=== PATIENT | female | born 1945 | race Caucasian/White ===

== ENCOUNTER 2018-07-24 14:49 | Emergency (ER) | payer MEDICARE ==
--- OUTSIDE RECORDS SUMMARY | 2018-07-24 14:53 | XMS REPORT | Continuity of Care Document ---
Author Author Jackson courtney [facility] Interface Address Unknown Phone Unavailable Problems Problem Status Onset Date Classification Date Reported Comments Source Radiculopathy, lumbar region 05/03/2017 08/05/2017 [facility] PAIN Active 01/08/2017 [facility] FALL Active 11/23/2015 [facility] GROUND LEVEL FALL, T12 BURST FRACTURE, M Active 11/23/2015 [facility] CERVICAL PAIN IN THE NECK Active 05/30/2015 [facility] M54.2 Active 03/15/2015 [facility] R52 - "PAIN, UNSPECIFIED" [facility]<sup>1</sup> Active 09/27/2014 Problem 09/21/2017 Data migrated from [employer] on 12/07/14. [facility] NECK PAIN Active 09/27/2014 [facility] Lumbar radiculopathy<sup>2</sup> Active 12/21/2013 Problem 09/21/2017 Data migrated from [employer] on 12/07/14. [facility] Anxiety Active Problem 09/21/2017 [facility] COPD Active Problem 09/21/2017 [facility] Depression Active Problem 05/02/2017 [facility] H/O low back pain Active Problem 09/21/2017 [facility], [facility] Heart burn Resolved Problem 09/21/2017 [facility] Irregular heart rate Active Problem 09/21/2017 [facility] Neck pain Active Problem 09/21/2017 [facility] Simple obesity Active Problem 09/21/2017 [facility], [facility] 09/21[facility]2017 [facility]ros[facility] C[facility] LUMBAR DISC DISPLACEMENT Active [facility] BRACHIAL NEURITIS NOS Active [facility] OTHER ABNORMAL FINDINGS ON SCR Active [facility] CERVICALGIA Active [facility] SPINAL STENOSIS, LUMBOSACRAL REGION Active [facility] FALL (ON) (FROM) UNSPECIFIED STAIRS AND Active [facility] FRACTURE OF UNSPECIFIED PART OF BODY OF Active [facility] ENCOUNTER FOR ADMINISTRATIVE EXAMINATION Active [facility] Medications Medication Details Route Status Patient Instructions Ordering Provider Order Date Source methocarbamol 750 mg oral tablet 750 mg=1 tab, PO, Q8H, PRN Spasms, X 20 day, # 60 tab, 0 Refill(s), given to patient Active 01/27/2017 [facility] Acetaminophen 325 MG / Oxycodone Hydrochloride 5 MG Oral Tablet [Percocet 5/325] 1 tab, PO, Q6H, PRN Pain, X 7 day, # 28 tab, 0 Refill(s), given to patient Active 01/27/2017 [facility] Ciprofloxacin 500 MG Oral Tablet [Cipro] 500 mg=1 tab, PO, Q12H, X 14 day, # 28 tab, 0 Refill(s), given to patient Active 01/27/2017 [facility] heparin 5,000 unit, 1 mL, Route: SUB-Q, Drug form: INJ, BID, Dosing Weight 84.091, kg, Start date: 01/26/17 9:00:00 CDT, Duration: 30 day, Stop date: 02/24/17 17:00:00 CSTNotes: porcine heparin No Longer Active 01/26/2017 [facility] SEROquel 100 mg, 1 tab, Route: PO, Drug form: TAB, Bedtime, Start date: 01/25/17 21:00:00 CDT, Duration: 30 day, Stop date: 02/23/17 21:00:00 CSTNotes: (Same as: SEROquel) No Longer Active 01/26/2017 [facility] Furosemide 40 MG Oral Tablet [Lasix] 40 mg, 1 tab, Route: PO, Drug form: TAB, Daily, Dosing Weight 84.091, kg, Start date: 01/25/17 9:00:00 CDT, Duration: 30 day, Stop date: 02/23/17 9:00:00 CSTNotes: (Same as: Lasix) May cause GI upset. Give with food or milk. Inactive 01/25/2017 [facility] Miralax 17 gm, 1 pkt, Route: PO, Drug form: PWDR, Daily, Dosing Weight 84.091, kg, Start date: 01/25/17 9:00:00 CDT, Duration: 30 day, Stop date: 02/23/17 9:00:00 CSTNotes: Dissolve in 8 oz of water or juice. (Same as: Miralax) No Longer Active 01/25/2017 [facility] potassium chloride 10 mEq oral tablet, extended release 10 mEq, 1 tab, Route: PO, Drug form: ERTAB, Daily, Dosing Weight 84.091, kg, Start date: 01/25/17 9:00:00 CDT, Duration: 30 day, Stop date: 02/23/17 9:00:00 CSTNotes: (Same as: K-Dur 10) "Do Not Crush" With food and full glass of water Inactive 01/25/2017 [facility] metoprolol extended release 25 mg, 1 tab, Route: PO, Drug form: ERTAB, Daily, Start date: 01/25/17 9:00:00 CDT, Duration: 30 day, Stop date: 02/23/17 9:00:00 CSTNotes: (Same as: Toprol XL) Do Not Crush No Longer Active 01/25/2017 [facility] Acetaminophen 325 MG / Oxycodone Hydrochloride 5 MG Oral Tablet [Percocet 5/325] 1 tab, Route: PO, Drug Form: TAB, Dosing Weight 84.091, kg, Q4H, PRN Pain Score 1-3, Start date: 01/25/17 8:08:00 CDT, Duration: 30 day, Stop date: 02/24/17 8:07:00 CSTNotes: Do not exceed 4gm/day of acetaminophen. (Same as: Percocet-5/325) No Longer Active 01/25/2017 [facility] Ativan 0.5 mg, 1 tab, Route: PO, Drug form: TAB, BID, Dosing Weight 84.091, kg, PRN Anxiety, Start date: 01/25/17 8:06:00 CDT, Duration: 30 day, Stop date: 02/24/17 8:05:00 CSTNotes: (Same as: Ativan) No Longer Active 01/25/2017 [facility] quetiapine 100 mg, PO, 1 tablet by mouth 3x/day and 2 tablets at night before bedtime, 0 Refill(s) Active 01/25/2017 [facility] Robaxin 750 mg, 1 tab, Route: PO, Drug form: TAB, Q6Hnow, Dosing Weight 84.091, kg, Start date: 01/24/17 22:00:00 CDT, Duration: 30 day, Stop date: 02/23/17 16:00:00 CSTNotes: (Same as:Robaxin) No Longer Active 01/25/2017 [facility] montelukast 10 mg, 1 tab, Route: PO, Drug form: TAB, Bedtime, Dosing Weight 84.091, kg, Start date: 01/24/17 21:00:00 CDT, Duration: 30 day, Stop date: 02/22/17 21:00:00 CSTNotes: (Same as:Singulair) No Longer Active 01/25/2017 [facility] Vancomycin 1,000 mg, Route: IV, [id number], Dosing Weight 84.091, kg, Time Critical Medication, Start date: 01/24/17 20:00:00 CDT, Duration: 3 day, Stop date: 01/27/17 8:00:00 CDT, ABX Indication: Surgical ProphylaxisNotes: TIME CRITICAL MEDICATION (Same As: Vancocin) Infusion rate 2001 mg: infuse over 2.5 hours MEDICATION WASTE Product Size: 1000 mg Product Wasted: _0__ mg No Longer Active 01/25/2017 [facility] Acetaminophen 10 MG/ML Injectable Solution 1,000 mg, 100 mL, Route: IV, Drug form: INJ, Q6H, Dosing Weight 84.091, kg, For > or=50 kg, Start date: 01/24/17 18:00:00 CDT, Duration: 2 doses or times, Stop date: 01/25/17 0:00:00 CDTNotes: Infuse over 15 minutes Do not exceed 4gm/day of acetaminophen MEDICATION WASTE Product Size: 1000 mg Product Wasted: 0___ mg No Longer Active 01/24/2017 [facility] Advair Diskus 250 mcg-50 mcg inhalation powder 1 puff, Route: INHALATION, Drug Form: AERO, Dosing Weight 84.091, kg, BID, Start date: 01/24/17 17:00:00 CDT, Duration: 30 day, Stop date: 02/23/17 9:00:00 ICT ACCOUNT MANAGER Inactive 01/24/2017 [facility] divalproex sodium 500 mg oral enteric coated tablet (Depakote) 500 mg, 1 tab, Route: PO, Drug form: ECTAB, BID, Dosing Weight 84.091, kg, Start date: 01/24/17 17:00:00 CDT, Duration: 30 day, Stop date: 02/23/17 9:00:00 CSTNotes: (Same as: Depakote Delayed Release) Do not confuse with the extended-release tablet. Delayed absorption enteric coated tablet. Do not crush No Longer Active 01/24/2017 [facility] senna 8.6 mg oral tablet 8.6 mg, 1 tab, Route: PO, Drug Form: TAB, Dosing Weight 84.091, kg, BID, Start date: 01/24/17 17:00:00 CDT, Duration: 30 day, Stop date: 02/23/17 9:00:00 CSTNotes: (Same as: Senokot) No Longer Active 01/24/2017 [facility] Docusate Sodium 100 MG Oral Capsule [Colace] 100 mg, 1 cap, Route: PO, Drug form: CAP, BID, Dosing Weight 84.091, kg, Start date: 01/24/17 17:00:00 CDT, Duration: 30 day, Stop date: 02/23/17 9:00:00 CSTNotes: (Same as: Colace) (Do Not Crush) No Longer Active 01/24/2017 [facility] Robaxin + D5W 100 mL 1,000 mg, 10 mL, Route: IV, ONCE, Start date: 01/24/17 16:15:00 CDT, Stop date: 01/24/17 16:15:00 CDTNotes: (Same as:Robaxin) Inactive 01/24/2017 [facility] Bacitracin 1 appl, Route: TOP, Q8H, Drug form: OINT, Start date: 01/24/17 16:00:00 CDT, Duration: 5 day, Stop date: 01/29/17 8:00:00 CDT No Longer Active 01/24/2017 [facility] Methocarbamol 1,000 mg, 10 mL, Route: IV, ONCE, Dosing Weight 84.091, kg, Priority: STAT, Start date: 01/24/17 15:26:00 CDT, Duration: 1 doses or times, Stop date: 01/24/17 15:26:00 CDTNotes: (Same as:Robaxin) Inactive 01/24/2017 [facility] budesonide-formoterol 2 puff, Route: INHALER, Drug Form: AERO/A, RBID, Start date: 01/24/17 14:35:00 CDT, Duration: 30 day, Stop date: 02/23/17 8:00:00 CSTNotes: (Same as: Symbicort) WASTE: Aerosol - Return to Pharmacy No Longer Active 01/24/2017 [facility] glycopyrrolate (ANES) Route: IV, Drug form: INJ, ONCE, Stop date: 01/24/17 14:34:00 CDT Inactive 01/24/2017 [facility] neostigmine (ANES) Route: IV, Drug form: INJ, ONCE, Stop date: 01/24/17 14:34:00 CDT Inactive 01/24/2017 [facility] Promethazine 6.25 mg, 25 mL, Route: IVPB, Drug form: SOLN, ONCE, Dosing Weight 84.091, kg, PRN Nausea & Vomiting, Start date: 01/24/17 14:08:00 CDT Inactive 01/24/2017 [facility] Ondansetron 4 mg, 2 mL, Route: IVP, Drug form: INJ, ONCE, Dosing Weight 84.091, kg, PRN Nausea & Vomiting, Start date: 01/24/17 14:08:00 CDTNotes: (Same as: Leon) MEDICATION WASTE Product Size: 4 mg Product Wasted: ___ mg Inactive 01/24/2017 [facility] Naloxone 0.4 mg, 1 mL, Route: IVP, Drug form: INJ, Q2MIN, Dosing Weight 84.091, kg, PRN Narcotic Reversal, Start date: 01/24/17 14:08:00 CDT, Duration: 8 doses or times, Stop date: Limited # of timesNotes: Same as Narcan Inactive 01/24/2017 [facility] Meperidine 12.5 mg, 0.5 mL, Route: IVP, Drug form: INJ, Q30Min, Dosing Weight 84.091, kg, PRN Other -See Comment, For shivering, Start date: 01/24/17 14:08:00 CDT, Duration: 2 doses or times, Stop date: Limited # of timesNotes: (Same as: Demerol) "Use Precaution in Elderly, Seizure disorders, and Renal impairment" Inactive 01/24/2017 [facility] Ephedrine 5 mg, 1 mL, Route: IVP, Drug form: INJ, Q5Min, Dosing Weight 84.091, kg, PRN Low Blood Pressure, Start date: 01/24/17 14:08:00 CDT, Duration: 30 day, Stop date: 02/23/17 13:07:00 CSTNotes: final conc entration 5 mg/mL Inactive 01/24/2017 [facility] Diphenhydramine 12.5 mg, 0.25 mL, Route: IVP, Drug form: INJ, Q6H, Dosing Weight 84.091, kg, PRN Itching, Start date: 01/24/17 14:08:00 CDT, Duration: 30 day, Stop date: 02/23/17 14:07:00 CSTNotes: (Same as: Merary stinson) Inactive 01/24/2017 [facility] Morphine 4 mg, 1 mL, Route: IVP, Drug form: INJ, Q5Min, Dosing Weight 84.091, kg, PRN Pain Score 7-10, Start date: 01/24/17 14:08:00 CDT, Duration: 3 doses or times, Stop date: Limited # of timesNotes: (Same as:MORPhine Sulfate) Inactive 01/24/2017 [facility] Hydromorphone 0.5 mg, Route: IVP, Q5Min, Dosing Weight 84.091, kg, PRN Pain Score 7-10, Start date: 01/24/17 14:08:00 CDT, Duration: 4 doses or times, Stop date: Limited # of times Inactive 01/24/2017 [facility] Flumazenil 0.2 mg, 2 mL, Route: IVP, Drug form: INJ, PRN, Dosing Weight 84.091, kg, PRN Benzodiazepine Reversal, Initial dose, Start date: 01/24/17 14:08:00 CDT, Duration: 30 day, Stop date: 02/23/17 13:07:00 C STNotes: (Same as: Romazicon) Inactive 01/24/2017 [facility] Oxycodone 10 mg, 10 mL, Route: NG, Drug form: SOLN, Q4H, Dosing Weight 84.091, kg, PRN Pain Score 7-10, Start date: 01/24/17 14:08:00 CDT, Duration: 30 day, Stop date: 02/23/17 14:07:00 CSTNotes: (Same as:'Sydney icodone) To be drawn up in 3 mL syr Inactive 01/24/2017 [facility] Labetalol 10 mg, 2 mL, Route: IVP, Drug form: INJ, Q5Min, Dosing Weight 84.091, kg, PRN Elevated BP, Start date: 01/24/17 14:08:00 CDT, Duration: 5 doses or times, Stop date: Limited # of times Inactive 01/24/2017 [facility] Hydralazine 10 mg, 0.5 mL, Route: IVP, Drug form: INJ, Q20Min, Dosing Weight 84.091, kg, PRN Elevated BP, Start date: 01/24/17 14:08:00 CDT, Duration: 2 doses or times, Stop date: Limited # of timesNotes: (Same as: Apresoline) Push over 5 minutes Inactive 01/24/2017 [facility] quetiapine 100 mg, 1 tab, Route: PO, Drug form: TAB, TID, Dosing Weight 84.091, kg, Start date: 01/24/17 14:00:00 CDT, Duration: 30 day, Stop date: 02/23/17 13:00:00 CSTNotes: (Same as: SEROquel) No Longer Active 01/24/2017 [facility] ondansetron (ANES) Route: IV, Drug form: INJ, ONCE, Stop date: 01/24/17 13:59:00 CDT Inactive 01/24/2017 [facility] Temazepam 15 mg, 1 cap, Route: PO, Drug form: CAP, Bedtime, Dosing Weight 84.091, kg, PRN Sleep, Start date: 01/24/17 13:31:00 CDT, Duration: 30 day, Stop date: 02/23/17 13:30:00 CSTNotes: (Same As: Restoril) No Longer Active 01/24/2017 [facility] Ventolin HFA 90 mcg/inh inhalation aerosol with adapter 2 puff, Route: INHALATION, Drug Form: AERO/A, Dosing Weight 84.091, kg, PRN, PRN Shortness of breath, Start date: 01/24/17 13:30:00 CDT, Duration: 30 day, Stop date: 02/23/17 12:29:00 CSTNotes: Same as: Ventolin HFA WASTE: Aerosol - Return to Pharmacy No Longer Active 01/24/2017 [facility] Naloxone 0.04 mg, 0.1 mL, Route: IVP, Drug form: INJ, Q2MIN, Dosing Weight 84.091, kg, PRN Narcotic Reversal, Start date: 01/24/17 13:30:00 CDT, Duration: 30 day, Stop date: 02/23/17 12:29:00 CSTNotes: Same as Narcan No Longer Active 01/24/2017 [facility] Hydromorphone 15 mg, 30 mL, Route: IV, PET CARE WORKER Dose: 0.2 mg, PET CARE WORKER Lockout: 15 minutes, Continuous Basal Rate: 0 mg, 4 Hour Limit (In MG): 6, Drug Form: INJ, Continuous, Start date: 01/24/17 13:30:00 CDT, Duration: 30 day, Stop date: 02/23/17 12:29:00 CSTNotes: (Same as: Dilaudid) conc=0.5 mg/ml Hydromorphone PET CARE WORKER Dose: ;Delay: ;Basal: No Longer Active 01/24/2017 [facility] Zofran 4 mg, 2 mL, Route: IV, Drug form: INJ, Q8H, Dosing Weight 84.091, kg, PRN Nausea, Start date: 01/24/17 13:27:00 CDT, Duration: 30 day, Stop date: 02/23/17 13:26:00 CSTNotes: (Same as: Zofran) MEDICATION WASTE Product Size: 4 mg Product Wasted: ___ mg No Longer Active 01/24/2017 [facility] Phenergan 6.25 mg, 5 mL, Route: PO, Drug form: SYRP, Q6H, Dosing Weight 84.091, kg, PRN Nausea & Vomiting, Start date: 01/24/17 13:27:00 CDT, Duration: 30 day, Stop date: 02/23/17 13:26:00 CSTNotes: (Same as: Phenergan) No Longer Active 01/24/2017 [facility] Benadryl 25 mg, 1 cap, Route: PO, Drug form: CAP, TID, Dosing Weight 84.091, kg, PRN Itching, Start date: 01/24/17 13:27:00 CDT, Duration: 30 day, Stop date: 02/23/17 13:26:00 CSTNotes: (Same as: Benadryl) No Longer Active 01/24/2017 [facility] Simethicone 80 mg, 1 tab, Route: CHEW, Drug form: CHEWTAB, TID, Dosing Weight 84.091, kg, PRN Gas, Start date: 01/24/17 13:27:00 CDT, Duration: 30 day, Stop date: 02/23/17 13:26:00 CSTNotes: (Same as: Mylicon) No Longer Active 01/24/2017 [facility] Temazepam 15 mg, 1 cap, Route: PO, Drug form: CAP, Bedtime, Dosing Weight 84.091, kg, PRN Sleep, Start date: 01/24/17 13:27:00 CDT, Duration: 30 day, Stop date: 02/23/17 13:26:00 CSTNotes: (Same As: Restoril) No Longer Active 01/24/2017 [facility] Acetaminophen 325 MG / Hydrocodone Bitartrate 10 MG Oral Tablet [Barton 10/325] 1 tab, Route: PO, Drug Form: TAB, Dosing Weight 84.091, kg, Q4H, PRN Pain Score 6-10, Start date: 01/24/17 13:27:00 CDT, Duration: 30 day, Stop date: 02/23/17 13:26:00 CSTNotes: Do not exceed 4gm/day of acetaminophen. (Same as: Barton 325/10) No Longer Active 01/24/2017 [facility] NS + KCL 20mEq/L 1000ml (Premix) 1,000 mL 1,000 mL, Rate: 75 ml/hr, Infuse over: 13.3 hr, Route: IV, Dosing Weight 84.091 kg, Total Volume: 1,000, Start date: 01/24/17 13:27:00 CDT, Duration: 30 day, Stop date: 02/23/17 13:26:00 CSTNotes: PREMIX IV - Do Not Alter WASTE: F/P - Sink; E - Municipal Trash Bin No Longer Active 01/24/2017 [facility] Tylenol 325 mg, 1 tab, Route: PO, Drug form: TAB, Q4H, Dosing Weight 84.091, kg, PRN Other -See Comment, Start date: 01/24/17 13:27:00 CDT, Duration: 30 day, Stop date: 02/23/17 13:26:00 CSTNotes: Do not exceed 4 gm/day. (Same as: Tylenol) No Longer Active 01/24/2017 [facility] Morphine 2 mg, 0.5 mL, Route: IVP, Drug form: INJ, Q2H, Dosing Weight 84.091, kg, PRN Pain Score 7-10, Start date: 01/24/17 13:27:00 CDT, Duration: 30 day, Stop date: 02/23/17 13:26:00 CSTNotes: (Same as:MORPhine Sulfate) No Longer Active 01/24/2017 [facility] Acetaminophen 325 MG / Hydrocodone Bitartrate 5 MG Oral Tablet [Barton 5/325] 1 tab, Route: PO, Drug Form: TAB, Dosing Weight 84.091, kg, Q4H, PRN Pain Score 1-5, Start date: 01/24/17 13:27:00 CDT, Duration: 30 day, Stop date: 02/23/17 13:26:00 CSTNotes: (Same as: Barton 325/5) Do not exceed 4gm/day of acetaminophen. No Longer Active 01/24/2017 [facility] phenylephrine (ANES) Route: IV, Drug form: INJ, ONCE, Stop date: 01/24/17 10:49:00 CDT Inactive 01/24/2017 [facility] rocuronium (ANES) Route: IV, Drug form: INJ, ONCE, Stop date: 01/24/17 10:24:00 CDT Inactive 01/24/2017 [facility] propofol (ANES) Route: IV, Drug form: INJ, ONCE, Stop date: 01/24/17 10:24:00 CDT Inactive 01/24/2017 [facility] lidocaine (ANES) Route: IV, Drug form: INJ, ONCE, Stop date: 01/24/17 10:24:00 CDT Inactive 01/24/2017 [facility] midazolam (ANES) Route: IV, Drug form: SOLN, ONCE, Stop date: 01/24/17 10:19:00 CDT Inactive 01/24/2017 [facility] fentaNYL (ANES) Route: IV, Drug form: INJ, ONCE, Stop date: 01/24/17 10:19:00 CDT Inactive 01/24/2017 [facility] dexamethasone (ANES) Route: IV, Drug form: INJ, ONCE, Stop date: 01/24/17 10:14:00 CDT Inactive 01/24/2017 [facility] morphine Sulfate (ANES) Route: IV, Drug form: INJ, ONCE, Stop date: 01/24/17 10:04:00 CDT Inactive 01/24/2017 [facility] sodium chloride 0.9% 500 ml INJ (ANES) Route: IV, Total Volume: 500, Start date: 01/24/17 9:12:00 CDT, Stop date: 01/24/17 10:12:00 CDT Inactive 01/24/2017 [facility] propofol (ANES) (ANES) Route: IV, Drug form: INJ, Start date: 01/24/17 9:12:00 CDT, Stop date: 01/24/17 10:12:00 CDT Inactive 01/24/2017 [facility] acetaminophen (ANES) (ANES) Route: IV, Drug form: INJ, Start date: 01/24/17 8:50:00 CDT, Stop date: 01/24/17 9:50:00 CDT Inactive 01/24/2017 [facility] vancomycin (ANES) (ANES) Route: IV, Drug form: INJ, Start date: 01/24/17 8:23:00 CDT, Stop date: 01/24/17 9:23:00 CDT Inactive 01/24/2017 [facility] LR 1000 mL INJ (ANES) Route: IV, Total Volume: 1,000, Start date: 01/24/17 8:23:00 CDT, Stop date: 01/24/17 9:23:00 CDT Inactive 01/24/2017 [facility] Lidocaine Hydrochloride 10 MG/ML Injectable Solution 2 mg, 0.2 mL, Route: SUB-Q, Drug Form: INJ, Dosing Weight 84.091, kg, ONCALL, Start date: 01/24/17 7:00:00 CDT, Duration: 30 day, Stop date: 02/23/17 5:59:00 CSTNotes: (Same as: Xylocaine) Inactive 01/24/2017 [facility] Lactated Ringers 1,000 mL 1,000 mL, Rate: 40 ml/hr, Infuse over: 25 hr, Route: IV, Dosing Weight 84.091 kg, Total Volume: 1,000, Start date: 01/24/17 6:54:00 CDT, Duration: 30 day, Stop date: 02/23/17 6:53:00 ICT ACCOUNT MANAGER No Longer Active 01/24/2017 [facility] Ofirmev 1,000 mg, 100 mL, Route: IVPB, Drug form: INJ, ONCALL, Start date: 01/18/17 20:00:00 CDT, Duration: 1 doses or timesNotes: Infuse over 15 minutes Do not exceed 4gm/day of acetaminophen MEDICATION WASTE Product Size: 1000 mg Product Wasted: ___ mg No Longer Active 01/19/2017 [facility] vancomycin 1.25 gm, 250 mL, Route: IVPB, Drug form: INJ, PRE OP, Start date: 01/18/17 20:00:00 CDT, Duration: 1 doses or times, ABX Indication: Surgical ProphylaxisNotes: TIME CRITICAL MEDICATION Same as: Vanco carmen-NS (premixed) Infusion rate 2001 mg: infuse over 2.5 hours No Longer Active 01/19/2017 [facility] Ventolin HFA 2 puff, INHALATION, PRN, 0 Refill(s) Active 01/17/2017 [facility] potassium chloride 10 mEq oral capsule, extended release 10 mEq=1 cap, PO, Daily, # 30 cap, 1 Refill(s) Active 01/17/2017 [facility] Advair Diskus 250 mcg-50 mcg inhalation powder 1 puff, INHALATION, BID, # 1 ea, 3 Refill(s) Active 01/17/2017 [facility] montelukast 10 mg oral tablet 10 mg=1 tab, PO, Bedtime, # 30 tab, 0 Refill(s) Active 01/17/2017 [facility] temazepam 15 mg oral capsule 15 mg=1 cap, PO, Bedtime, PRN Sleep, # 14 tab, 0 Refill(s) Inactive 01/17/2017 [facility] metoprolol 25 mg oral tablet, extended release 25 mg=1 tab, PO, Daily, # 30 tab, 0 Refill(s) Active 01/17/2017 [facility] Furosemide 40 MG Oral Tablet [Lasix] 40 mg=1 tab, PO, Daily, # 30 tab, 0 Refill(s) Active 01/17/2017 [facility] clopidogrel 75 MG Oral Tablet [Plavix] 75 mg=1 tab, PO, Daily, # 30 tab, 0 Refill(s) No Longer Active 01/17/2017 [facility] QUEtiapine 100 mg oral tablet 100 mg=1 tab, PO, 5X Day, # 90 tab, 0 Refill(s) No Longer Active 01/17/2017 [facility] Acetaminophen 300 MG / Codeine Phosphate 30 MG Oral Tablet [Tylenol with Codeine #3] 1 - 2 tab, PO, Q4H, PRN Pain, # 20 tab, 0 Refill(s) No Longer Active 01/17/2017 [facility] pneumococcal 13-valent vaccine 0.5 mL, Route: IM, Drug Form: INJ, Daily, Start date: 12/05/15 21:00:00 CDT, Duration: 1 doses or times, Stop date: 12/05/15 21:00:00 CDTNotes: Lightly roll vial (DO NOT SHAKE) before administration. (Same as: Prevnar 13) Inactive 12/06/2015 [facility] Cephalexin 500 MG Oral Capsule [Keflex] 500 mg=1 cap, PO, QID, X 10 day, # 40 cap, 0 Refill(s) Active 12/05/2015 [facility] Methocarbamol 750 MG Oral Tablet [Robaxin] 750 mg=1 tab, PO, Q6H, PRN Spasms, X 30 day, # 120 tab, 0 Refill(s) Active 12/05/2015 [facility] Acetaminophen 325 MG / Hydrocodone Bitartrate 10 MG Oral Tablet [Barton 10/325] 1 tab, PO, Q6H, PRN for pain, X 15 day, # 60 tab, 0 Refill(s) Active 12/05/2015 [facility] potassium chloride 40 mEq, 2 tab, Route: PO, Drug form: ERTAB, ONCE, Dosing Weight 72.074, kg, Start date: 12/04/15 18:00:00 CDT, Stop date: 12/04/15 18:00:00 CDTNotes: (Same as: K-Dur 20) "Do Not Crush" With food and full glass of water Inactive 12/04/2015 [facility] potassium chloride 10 mEq, 100 mL, Route: IVPB, Drug form: INJ, Q1H, Dosing Weight 72.074, kg, Total Dose=40 meq, Start date: 12/04/15 11:00:00 CDT, Duration: 4 doses or times, Stop date: 12/04/15 14:00:00 CDT, Peripheral LineNotes: Infuse at a rate of 10 mEq/hr. (Same as: KCL) Inactive 12/04/2015 [facility] docusate sodium 100 mg oral capsule 200 mg, 2 cap, Route: PO, Drug form: CAP, BID, Start date: 12/04/15 9:00:00 CDT, Duration: 30 day, Stop date: 01/02/16 17:00:00 CDTNotes: (Same as: Colace) (Do Not Crush) No Longer Active 12/04/2015 [facility] Bentyl 10 mg, 1 cap, Route: PO, Drug form: CAP, TID, Dosing Weight 72.074, kg, PRN Cramps, Start date: 12/04/15 7:50:00 CDT, Duration: 30 day, Stop date: 01/03/16 7:49:00 CDTNotes: (Same as: Bentyl) No Longer Active 12/04/2015 [facility] Insulin, Aspart, Human 4 unit, 0.04 mL, Route: SUB-Q, Drug form: SOLN, Bedtime, Dosing Weight 72.074, kg, PRN Blood Glucose Results, Start date: 12/04/15 6:05:00 CDT, Duration: 30 day, Stop date: 01/03/16 6:04:00 CDTNotes: Roll in palms of hands gently; Do not shake vigorously. (Same as: NovoLOG) "single patient use only" WASTE: F/P - Black; E - Municipal Trash Bin Stable for 28 days at room temperature. Expires in days from Date No Longer Active 12/04/2015 [facility] Glucagon 1 mg, Route: IM, Drug form: PDR/INJ, PRN, Dosing Weight 72.074, kg, PRN Blood Glucose Results, Start date: 12/04/15 6:05:00 CDT, Duration: 30 day, Stop date: 01/03/16 6:04:00 CDT No Longer Active 12/04/2015 [facility] Dextrose 50% Syringe 25 gm, 50 mL, Route: IVP, Drug Form: INJ, Dosing Weight 72.074, kg, PRN, PRN Blood Glucose Results, Start date: 12/04/15 6:05:00 CDT, Duration: 30 day, Stop date: 01/03/16 6:04:00 CDT No Longer Active 12/04/2015 [facility] Metoclopramide 10 mg, 2 mL, Route: IVP, Drug form: INJ, Q6H, Dosing Weight 72.074, kg, PRN Nausea & Vomiting, Start date: 12/04/15 5:53:00 CDT, Duration: 30 day, Stop date: 01/03/16 5:52:00 CDTNotes: (Same as: Reglan) No Longer Active 12/04/2015 [facility] heparin 5,000 unit, 1 mL, Route: SUB-Q, Drug form: INJ, Q12H, Dosing Weight 72.074, kg, Start date: 12/03/15 21:00:00 CDT, Duration: 30 day, Stop date: 01/02/16 9:00:00 CDTNotes: porcine heparin No Longer Active 12/04/2015 [facility] lactulose 20 gm, 30 mL, Route: PO, Drug form: SYRP, Q6H, PRN Constipation, Start date: 12/03/15 18:35:00 CDT, Duration: 30 day, Stop date: 01/02/16 18:34:00 CDTNotes: (Same as:Chronulac) No Longer Active 12/03/2015 [facility] docusate sodium 100 mg oral capsule 100 mg, 1 cap, Route: PO, Drug form: CAP, ONCE, Priority: NOW, Start date: 12/03/15 18:34:00 CDT, Stop date: 12/03/15 18:34:00 CDTNotes: (Same as: Colace) (Do Not Crush) Inactive 12/03/2015 [facility] methylnaltrexone 12 mg, Route: SUB-Q, ONCE, Dosing Weight 72.074, kg, Start date: 12/03/15 18:04:00 CDT, Stop date: 12/03/15 18:04:00 CDT Inactive 12/03/2015 [facility] Milk of Magnesia 60 ml, Route: PO, Drug Form: SUSP, Dosing Weight 72.074, kg, Q4H, Start date: 12/03/15 12:00:00 CDT, Duration: 30 day, Stop date: 01/02/16 8:00:00 CDTNotes: (Same as: Milk of Magnesia, MOM) No Longer Active 12/03/2015 [facility] Protonix 40 mg, 1 tab, Route: PO, Drug form: ECTAB, Before Breakfast, Dosing Weight 72.074, kg, Start date: 12/03/15 7:30:00 CDT, Duration: 30 day, Stop date: 01/01/16 7:30:00 CDTNotes: Tablet should not be c hewed or crushed. (Same as: Protonix) No Longer Active 12/03/2015 [facility] Miralax 17 gm, 1 pkt, Route: PO, Drug form: PWDR, TID, Dosing Weight 72.074, kg, Start date: 12/02/15 20:00:00 CDT, Duration: 30 day, Stop date: 01/01/16 17:00:00 CDTNotes: Dissolve in 8 oz of water or juice. (Same as: Miralax) No Longer Active 12/03/2015 [facility] Dulcolax Laxative 10 mg, 1 supp, Route: [place], Drug form: SUPP, BID, Dosing Weight 72.074, kg, PRN Constipation, Start date: 12/02/15 17:48:00 CDT, Duration: 30 day, Stop date: 01/01/16 17:47:00 CDTNotes: (Same As: Dulcolax, Bisco-Lax) No Longer Active 12/02/2015 [facility] Robaxin 750 mg, 1 tab, Route: PO, Drug form: TAB, Q6H, Start date: 12/02/15 17:00:00 CDT, Duration: 30 day, Stop date: 01/01/16 11:00:00 CDTNotes: (Same as:Robaxin) No Longer Active 12/02/2015 [facility] Protonix 40 mg, 1 tab, Route: PO, Drug form: ECTAB, Before Dinner, Start date: 12/02/15 16:30:00 CDT, Duration: 30 day, Stop date: 12/31/15 16:30:00 CDTNotes: Tablet should not be chewed or crushed. (Same as: Protonix) No Longer Active 12/02/2015 [facility] Morphine 4 mg, 1 mL, Route: IVP, Drug form: INJ, Q2H, Dosing Weight 72.074, kg, PRN Pain Score 7-10, Start date: 12/02/15 16:18:00 CDT, Duration: 30 day, Stop date: 01/01/16 16:17:00 CDTNotes: (Same as:MORPhine Sulfate) No Longer Active 12/02/2015 [facility] Zofran 4 mg, 2 mL, Route: IVP, Drug form: INJ, Q6H, Dosing Weight 72.074, kg, PRN Nausea & Vomiting, Start date: 12/02/15 12:49:00 CDT, Duration: 30 day, Stop date: 01/01/16 12:48:00 CDTNotes: (Same as: Zofran) MEDICATION WASTE Product Size: 4 mg Product Wasted: ___ mg Inactive 12/02/2015 [facility] tramadol hydrochloride 50 MG Oral Tablet 50 mg, 1 tab, Route: PO, Drug form: TAB, Q6H, Dosing Weight 72.074, kg, PRN Pain Score 1-3, Start date: 12/02/15 12:24:00 CDT, Duration: 30 day, Stop date: 01/01/16 12:23:00 CDTNotes: Not to exceed 400mg/day. (Same As: Ultram) No Longer Active 12/02/2015 [facility] Lactulose 667 MG/ML Oral Solution 10 gm, 15 mL, Route: PO, Drug Form: SYRP, Dosing Weight 72.074, kg, BID, Start date: 12/02/15 11:53:00 CDT, Duration: 30 day, Stop date: 01/01/16 9:00:00 CDTNotes: (Same as:Chronulac) Inactive 12/02/2015 [facility] Docusate Sodium 100 MG Oral Capsule [Colace] 100 mg, 1 cap, Route: PO, Drug form: CAP, BID, Dosing Weight 72.074, kg, Start date: 12/02/15 9:00:00 CDT, Duration: 30 day, Stop date: 12/31/15 17:00:00 CDTNotes: (Same as: Colace) (Do Not Crush) No Longer Active 12/02/2015 [facility] Miralax 17 gm, 1 pkt, Route: PO, Drug form: PWDR, Daily, Dosing Weight 72.074, kg, Start date: 12/02/15 9:00:00 CDT, Duration: 30 day, Stop date: 12/31/15 9:00:00 CDTNotes: Dissolve in 8 oz of water or juice. (Same as: Miralax) Inactive 12/02/2015 [facility] senna 8.6 mg oral tablet 8.6 mg, 1 tab, Route: PO, Drug Form: TAB, Dosing Weight 72.074, kg, BID, Start date: 12/02/15 9:00:00 CDT, Duration: 30 day, Stop date: 12/31/15 17:00:00 CDTNotes: (Same as: Senokot) No Longer Active 12/02/2015 [facility] Acetaminophen 10 MG/ML Injectable Solution 1,000 mg, 100 mL, Route: IV, Drug form: INJ, Q6H, Dosing Weight 72.074, kg, For > or=50 kg, Start date: 12/02/15 0:00:00 CDT, Duration: 2 doses or times, Stop date: 12/02/15 6:00:00 CDTNotes: Infuse over 15 minutes Do not exceed 4gm/day of acetaminophen MEDICATION WASTE Product Size: 1000 mg Product Wasted: ___ mg Inactive 12/02/2015 [facility] atorvastatin 20 mg, 1 tab, Route: PO, Drug form: TAB, Bedtime, Dosing Weight 72.074, kg, Start date: 12/01/15 21:00:00 CDT, Duration: 30 day, Stop date: 12/30/15 21:00:00 CDTNotes: (Same As: Lipitor) No Longer Active 12/02/2015 [facility] montelukast 10 mg, 1 tab, Route: PO, Drug form: TAB, Bedtime, Dosing Weight 72.074, kg, Start date: 12/01/15 21:00:00 CDT, Duration: 30 day, Stop date: 12/30/15 21:00:00 CDTNotes: (Same as:Singulair) No Longer Active 12/02/2015 [facility] Vancomycin 6.67 MG/ML Injectable Solution 1,000 mg, Route: IVPB, Q12H, Dosing Weight 72.074, kg, Time Critical Medication, Start date: 12/01/15 21:00:00 CDT, Duration: 5 day, Stop date: 12/06/15 9:00:00 CDTNotes: TIME CRITICAL MEDICATION (Same As: Vancocin) Infusion rate 2001 mg: infuse over 2.5 hours MEDICATION WASTE Product Size: 1000 mg Product Wasted: ___ mg No Longer Active 12/02/2015 [facility] Enoxaparin 30 mg, 0.3 mL, Route: SUB-Q, Drug form: INJ, [id number], Dosing Weight 72.074, kg, Start date: 12/01/15 20:00:00 CDT, Duration: 30 day, Stop date: 12/31/15 8:00:00 CDTNotes: (Same as: Lovenox) No Longer Active 12/02/2015 [facility] Robaxin 750 mg, 100 mL, Route: IV, Drug form: SOLN, Q6H, Dosing Weight 72.074, kg, Start date: 12/01/15 20:00:00 CDT, Duration: 30 day, Stop date: 12/31/15 14:00:00 CDTNotes: Do not refrigerate. No Longer Active 12/02/2015 [facility] Ondansetron 4 mg, 1 tab, Route: PO, Drug form: TAB, Q8H, Dosing Weight 72.074, kg, PRN Nausea & Vomiting, Start date: 12/01/15 19:04:00 CDT, Duration: 30 day, Stop date: 12/31/15 19:03:00 CDT, ..Notes: (Same as: Zofran) No Longer Active 12/02/2015 [facility] Trazodone 50 mg, 1 tab, Route: PO, Drug form: TAB, Bedtime, Dosing Weight 72.074, kg, PRN Sleep, Start date: 12/01/15 19:04:00 CDT, Duration: 30 day, Stop date: 12/31/15 19:03:00 CDT, ..Notes: (Same As: Desyrel) No Longer Active 12/02/2015 [facility] Tylenol 325 mg, 1 tab, Route: PO, Drug form: TAB, Q4H, Dosing Weight 72.074, kg, PRN For Temp > 101 F, Start date: 12/01/15 19:00:00 CDT, Duration: 30 day, Stop date: 12/31/15 18:59:00 CDTNotes: Do not exceed 4 gm/day. (Same as: Tylenol) No Longer Active 12/02/2015 [facility] Morphine 2 mg, 1 mL, Route: IVP, Drug form: INJ, Q2H, Dosing Weight 72.074, kg, PRN Other -See Comment, Start date: 12/01/15 19:00:00 CDT, Duration: 30 day, Stop date: 12/31/15 18:59:00 CDTNotes: (Same as:MORPhine Sulfate) No Longer Active 12/02/2015 [facility] Acetaminophen 325 MG / Hydrocodone Bitartrate 10 MG Oral Tablet [Barton 10/325] 1 tab, Route: PO, Drug Form: TAB, Dosing Weight 72.074, kg, Q4H, PRN Pain Score 1-5, Start date: 12/01/15 19:00:00 CDT, Duration: 30 day, Stop date: 12/31/15 18:59:00 CDTNotes: Do not exceed 4gm/day of acetaminophen. (Same as: Barton 325/10) No Longer Active 12/02/2015 [facility] Benadryl 25 mg, 1 cap, Route: PO, Drug form: CAP, TID, Dosing Weight 72.074, kg, PRN Itching, Start date: 12/01/15 19:00:00 CDT, Duration: 30 day, Stop date: 12/31/15 18:59:00 CDTNotes: (Same as: Benadryl) No Longer Active 12/02/2015 [facility] Simethicone 80 mg, 1 tab, Route: CHEW, Drug form: CHEWTAB, TID, Dosing Weight 72.074, kg, PRN Gas, Start date: 12/01/15 19:00:00 CDT, Duration: 30 day, Stop date: 12/31/15 18:59:00 CDTNotes: (Same as: Mylicon) No Longer Active 12/02/2015 [facility] Zofran 4 mg, 2 mL, Route: IV, Drug form: INJ, Q8H, Dosing Weight 72.074, kg, PRN Nausea, Start date: 12/01/15 19:00:00 CDT, Duration: 30 day, Stop date: 12/31/15 18:59:00 CDTNotes: (Same as: Zofran) MEDICATION WASTE Product Size: 4 mg Product Wasted: ___ mg No Longer Active 12/02/2015 [facility] NS + KCL 20mEq/L 1000ml (Premix) 1,000 mL 1,000 mL, Rate: 50 ml/hr, Infuse over: 20 hr, Route: IV, Dosing Weight 72.074 kg, Total Volume: 1,000, Start date: 12/01/15 19:00:00 CDT, Duration: 30 day, Stop date: 12/31/15 18:59:00 CDTNotes: PREMIX IV - Do Not Alter WASTE: F/P - Sink; E - Municipal Trash Bin No Longer Active 12/02/2015 [facility] ondansetron (ANES) Route: IV, Drug form: INJ, ONCE, Stop date: 12/01/15 18:50:00 CDT Inactive 12/01/2015 [facility] labetalol (ANES) Route: IV, Drug form: INJ, ONCE, Stop date: 12/01/15 18:20:00 CDT Inactive 12/01/2015 [facility] acetaminophen (ANES) (ANES) Route: IV, Drug form: INJ, Start date: 12/01/15 17:21:00 CDT, Stop date: 12/01/15 18:21:00 CDT Inactive 12/01/2015 [facility] Protonix 40 mg, Route: IVP, Before Dinner, Dosing Weight 72.074, kg, Start date: 12/01/15 16:30:00 CDT, Duration: 30 day, Stop date: 12/30/15 16:30:00 CDTNotes: For IV push reconstitute with 10 ml 0.9% sodium ch loride and push over 2 minutes. (Same as: Protonix) No Longer Active 12/01/2015 [facility] fentaNYL (ANES) Route: IV, Drug form: INJ, ONCE, Stop date: 12/01/15 16:30:00 CDT Inactive 12/01/2015 [facility] rocuronium (ANES) Route: IV, Drug form: INJ, ONCE, Stop date: 12/01/15 16:30:00 CDT Inactive 12/01/2015 [facility] propofol (ANES) Route: IV, Drug form: INJ, ONCE, Stop date: 12/01/15 16:30:00 CDT Inactive 12/01/2015 [facility] lidocaine (ANES) Route: IV, Drug form: INJ, ONCE, Stop date: 12/01/15 16:30:00 CDT Inactive 12/01/2015 [facility] phenylephrine (ANES) Route: IV, Drug form: INJ, ONCE, Stop date: 12/01/15 16:30:00 CDT Inactive 12/01/2015 [facility] dexamethasone (ANES) Route: IV, Drug form: INJ, ONCE, Stop date: 12/01/15 16:30:00 CDT Inactive 12/01/2015 [facility] famotidine (ANES) Route: IV, Drug form: INJ, ONCE, Stop date: 12/01/15 16:25:00 CDT Inactive 12/01/2015 [facility] midazolam (ANES) Route: IV, Drug form: SOLN, ONCE, Stop date: 12/01/15 16:25:00 CDT Inactive 12/01/2015 [facility] hydromorphone (ANES) Route: IV, Drug form: INJ, ONCE, Stop date: 12/01/15 16:20:00 CDT Inactive 12/01/2015 [facility] LR 1000 mL INJ (ANES) Route: IV, Total Volume: 1,000, Start date: 12/01/15 15:00:00 CDT, Stop date: 12/01/15 16:00:00 CDT Inactive 12/01/2015 [facility] vancomycin (ANES) (ANES) Route: IV, Drug form: INJ, Start date: 12/01/15 15:00:00 CDT, Stop date: 12/01/15 16:00:00 CDT Inactive 12/01/2015 [facility] Ondansetron 4 mg, 2 mL, Route: IVP, Drug form: INJ, ONCE, Dosing Weight 72.074, kg, PRN Nausea & Vomiting, Start date: 12/01/15 14:20:00 CDTNotes: (Same as: Zofran) MEDICATION WASTE Product Size: 4 mg Product Wasted: ___ mg Inactive 12/01/2015 [facility] Hydromorphone 0.5 mg, 0.5 mL, Route: IVP, Drug form: INJ, Q5Min, Dosing Weight 72.074, kg, PRN Pain Score 7-10, Start date: 12/01/15 14:20:00 CDT, Duration: 4 doses or times, Stop date: Limited # of timesNotes: Sa me as: Dilaudid Inactive 12/01/2015 [facility] Fentanyl 25 microgram, 0.5 mL, Route: IVP, Drug form: INJ, Q5Min, Dosing Weight 72.074, kg, PRN Pain Score 4-6, Start date: 12/01/15 14:20:00 CDT, Duration: 4 doses or times, Stop date: Limited # of timesNotes: (Same as: Sublimaze) Preservative free. Inactive 12/01/2015 [facility] Naloxone 0.4 mg, 1 mL, Route: IVP, Drug form: INJ, Q2MIN, Dosing Weight 72.074, kg, PRN Narcotic Reversal, Start date: 12/01/15 14:20:00 CDT, Duration: 8 doses or times, Stop date: Limited # of timesNotes: Same as Narcan Inactive 12/01/2015 [facility] Flumazenil 0.2 mg, 2 mL, Route: IVP, Drug form: INJ, PRN, Dosing Weight 72.074, kg, PRN Benzodiazepine Reversal, Initial dose, Start date: 12/01/15 14:20:00 CDT, Duration: 30 day, Stop date: 12/31/15 14:19:00 C DTNotes: (Same as: Romazicon) Inactive 12/01/2015 [facility] Meperidine 12.5 mg, 0.5 mL, Route: IVP, Drug form: INJ, Q30Min, Dosing Weight 72.074, kg, PRN Other -See Comment, For shivering, Start date: 12/01/15 14:20:00 CDT, Duration: 2 doses or times, Stop date: Limited # of timesNotes: (Same as: Demerol) "Use Precaution in Elderly, Seizure disorders, and Renal impairment" Inactive 12/01/2015 [facility] Acetaminophen 1,000 mg, 100 mL, Route: IVPB, Drug form: INJ, ONCE, Dosing Weight 72.074, kg, PRN Pain Score 1-3, Start date: 12/01/15 14:20:00 CDT, Duration: 1 doses or times, Stop date: Limited # of timesNotes: I nfuse over 15 minutes Do not exceed 4gm/day of acetaminophen MEDICATION WASTE Product Size: 1000 mg Product Wasted: ___ mg Inactive 12/01/2015 [facility] metoprolol tartrate 25 mg, 1 tab, Route: PO, Drug form: TAB, BID, Dosing Weight 72.074, kg, Start date: 12/01/15 9:00:00 CDT, Duration: 30 day, Stop date: 12/30/15 17:00:00 CDTNotes: (Same as: Lopressor) No Longer Active 12/01/2015 [facility] Divalproex Sodium 500 MG Enteric Coated Tablet 500 mg, 1 tab, Route: PO, Drug form: ECTAB, BID, Dosing Weight 72.074, kg, Start date: 12/01/15 9:00:00 CDT, Duration: 30 day, Stop date: 12/30/15 17:00:00 CDTNotes: (Same as: Depakote Delayed Release) Do not confuse with the extended-release tablet. Delayed absorption enteric coated tablet. Do not crush No Longer Active 12/01/2015 [facility] Pepcid 20 mg, 1 tab, Route: PO, Drug form: TAB, Daily, Dosing Weight 72.074, kg, Start date: 12/01/15 9:00:00 CDT, Duration: 30 day, Stop date: 12/30/15 9:00:00 CDTNotes: (Same as: Pepcid) No Longer Active 12/01/2015 [facility] Calcium Carbonate 1500 MG / Cholecalciferol 400 UNT Oral Tablet 1 tab, Route: PO, Drug Form: TAB, Dosing Weight 72.074, kg, BID, Start date: 12/01/15 9:00:00 CDT, Duration: 30 day, Stop date: 12/30/15 17:00:00 CDTNotes: Same as CalCarb 600 /Vitamin D No Longer Active 12/01/2015 [facility] clopidogrel 75 mg, 1 tab, Route: PO, Drug form: TAB, Daily, Dosing Weight 72.074, kg, Start date: 12/01/15 9:00:00 CDT, Duration: 30 day, Stop date: 12/30/15 9:00:00 CDTNotes: (Same As: Plavix) No Longer Active 12/01/2015 [facility] Streptococcus pneumoniae serotype 1 capsular antigen diphtheria [id number] protein conjugate vaccine / Streptococcus pneumoniae serotype 14 capsular antigen diphtheria [id number] protein conjugate vaccine / Streptococcus pneumoniae serotype 18C capsular antigen d 0.5 mL, Route: IM, Drug Form: INJ, Daily, Start date: 12/01/15 9:00:00 CDT, Duration: 1 doses or times, Stop date: 12/01/15 9:00:00 CDTNotes: Lightly roll vial (DO NOT SHAKE) before administration. (Same as: Prevnar 13) Inactive 12/01/2015 [facility] quetiapine 200 mg, 2 tab, Route: PO, Drug form: TAB, BID, Dosing Weight 72.074, kg, Start date: 12/01/15 9:00:00 CDT, Duration: 30 day, Stop date: 12/30/15 17:00:00 CDTNotes: (Same as: SEROquel) No Longer Active 12/01/2015 [facility] Dexamethasone 4 mg, 1 mL, Route: IV, Drug form: INJ, [id number], Dosing Weight 72.074, kg, Priority: NOW, Start date: 12/01/15 0:35:00 CDT, Duration: 30 day, Stop date: 12/30/15 13:00:00 CDTNotes: Concentration: 4mg/ml No Longer Active 12/01/2015 [facility] Saline Flush 0.9% 10 ml, Route: IVP, Drug Form: INJ, Dosing Weight 72.074, kg, PRN, PRN Line Flush, Start date: 12/01/15 0:33:00 CDT, Duration: 30 day, Stop date: 12/31/15 0:32:00 CDTNotes: Same as: BD Posiflush Sterile No Longer Active 12/01/2015 [facility] Morphine 2 mg, 1 mL, Route: IVP, Drug form: INJ, Q4H, Dosing Weight 72.074, kg, PRN Pain Score 7-10, Start date: 12/01/15 0:33:00 CDT, Duration: 30 day, Stop date: 12/31/15 0:32:00 CDTNotes: (Same as:MORPhine Sulfate) No Longer Active 12/01/2015 [facility] Ondansetron 4 mg, 2 mL, Route: IVP, Drug form: INJ, Q6H, Dosing Weight 72.074, kg, PRN Nausea & Vomiting, Start date: 12/01/15 0:33:00 CDT, Duration: 30 day, Stop date: 12/31/15 0:32:00 CDTNotes: (Same as: Zofran) MEDICATION WASTE Product Size: 4 mg Product Wasted: ___ mg No Longer Active 12/01/2015 [facility] Docusate 100 mg, 1 cap, Route: PO, Drug form: CAP, BID, Dosing Weight 72.074, kg, PRN Constipation, Start date: 12/01/15 0:33:00 CDT, Duration: 30 day, Stop date: 12/31/15 0:32:00 CDTNotes: (Same as: Colace) (Do Not Crush) No Longer Active 12/01/2015 [facility] Sodium Chloride 0.154 MEQ/ML Injectable Solution 1,000 mL, Rate: 125 ml/hr, Infuse over: 8 hr, Route: IV, Dosing Weight 72.074 kg, Total Volume: 1,000, Start date: 12/01/15 0:33:00 CDT, Duration: 30 day, Stop date: 12/31/15 0:32:00 CDT No Longer Active 12/01/2015 [facility] Acetaminophen 325 MG / Hydrocodone Bitartrate 5 MG Oral Tablet 1 tab, Route: PO, Drug Form: TAB, Dosing Weight 72.074, kg, Q4H, PRN Pain Score 4-6, Start date: 12/01/15 0:33:00 CDT, Duration: 30 day, Stop date: 12/31/15 0:32:00 CDTNotes: (Same as: Barton 325/5) Do not exceed 4gm/day of acetaminophen. No Longer Active 12/01/2015 [facility] sennosides, MCC 17.2 mg, 2 tab, Route: PO, Drug Form: TAB, Dosing Weight 72.074, kg, BID, PRN Constipation, Start date: 11/30/15 22:01:00 CDT, Duration: 30 day, Stop date: 12/30/15 22:00:00 CDTNotes: (Same as: Senokot) No Longer Active 12/01/2015 [facility] Morphine 2 mg, 1 mL, Route: IVP, Drug form: INJ, Q4H, Dosing Weight 72.074, kg, PRN Pain Score 7-10, Start date: 11/30/15 21:57:00 CDT, Duration: 30 day, Stop date: 12/30/15 21:56:00 CDTNotes: (Same as:MORPhine Sulfate) No Longer Active 12/01/2015 [facility] Acetaminophen 325 MG / Hydrocodone Bitartrate 10 MG Oral Tablet [Barton 10/325] 1 tab, Route: PO, Drug Form: TAB, Dosing Weight 72.074, kg, Q6H, PRN Pain Score 4-6, Start date: 11/30/15 21:57:00 CDT, Duration: 30 day, Stop date: 12/30/15 21:56:00 CDTNotes: Do not exceed 4gm/day of acetaminophen. (Same as: Barton 325/10) No Longer Active 12/01/2015 [facility] Zofran 4 mg, 2 mL, Route: IVP, Drug form: INJ, Q8H, Dosing Weight 72.074, kg, PRN Nausea, Start date: 11/30/15 21:56:00 CDT, Duration: 30 day, Stop date: 12/30/15 21:55:00 CDTNotes: (Same as: Leon) MEDICATION WASTE Product Size: 4 mg Product Wasted: ___ mg No Longer Active 12/01/2015 [facility] Acetaminophen 650 mg, 2 tab, Route: PO, Drug form: TAB, Q6H, Dosing Weight 72.074, kg, PRN Pain 1-3/Temp > 100.4 F, Start date: 11/30/15 21:56:00 CDT, Duration: 30 day, Stop date: 12/30/15 21:55:00 CDTNotes: Do not exceed 4 gm/day. (Same as: Tylenol) No Longer Active 12/01/2015 [facility] Morphine 4 mg, 1 mL, Route: IVP, Drug form: INJ, ONCE, Dosing Weight 72.074, kg, Start date: 11/30/15 21:51:00 CDT, Stop date: 11/30/15 21:51:00 CDTNotes: (Same as:MORPhine Sulfate) No Longer Active 12/01/2015 [facility] montelukast 10 mg oral tablet 10 mg=1 tab, PO, Bedtime, # 30 tab, 0 Refill(s) No Longer Active 12/01/2015 [facility] clopidogrel 75 mg oral tablet 75 mg=1 tab, PO, Daily, # 30 tab, 0 Refill(s) No Longer Active 12/01/2015 [facility] Hydromorphone 1 mg, 1 mL, Route: IVP, Drug form: INJ, ONCE, Dosing Weight 76.818, kg, Priority: STAT, Start date: 11/30/15 19:30:00 CDT, Stop date: 11/30/15 19:30:00 CDTNotes: Same as: Dilaudid Inactive 12/01/2015 [facility] Valium 5 mg, Route: IM, Drug form: INJ, ONCE, Dosing Weight 76.818, kg, Priority: STAT, Start date: 11/30/15 15:18:00 CDT, Stop date: 11/30/15 15:18:00 CDT Inactive 11/30/2015 [facility] Morphine 6 mg, Route: IM, Drug form: INJ, ONCE, Dosing Weight 76.818, kg, Priority: STAT, Start date: 11/30/15 14:53:00 CDT, Stop date: 11/30/15 14:53:00 CDTNotes: (Same as:MORPhine Sulfate) Inactive 11/30/2015 [facility] Fluzone High-Dose [id number] 0.5 mL, Route: IM, Drug Form: SUSP, Daily, Start date: 01/14/15 12:00:00, Stop date: 01/14/15 23:50:00Notes: (Same as: Fluzone High-Dose) For 65 years of age of older (0.5 ml IM) Shake well before use Inactive 01/14/2015 [facility] senna 8.6 mg oral tablet 8.6 mg, 1 tab, Route: PO, Drug Form: TAB, Dosing Weight 68.182, kg, BID, Start date: 01/14/15 9:00:00, Duration: 30 day, Stop date: 02/12/15 17:00:00Notes: (Same as: Senokot) Inactive 01/14/2015 [facility] Miralax 17 gm, 1 pkt, Route: PO, Drug form: PWDR, Daily, Dosing Weight 68.182, kg, Start date: 01/14/15 9:00:00, Duration: 30 day, Stop date: 02/12/15 9:00:00Notes: Dissolve in 8 oz of water or juice. (Same as: Miralax) Inactive 01/14/2015 [facility] Docusate Sodium 100 MG Oral Capsule [Colace] 100 mg, 1 cap, Route: PO, Drug form: CAP, BID, Dosing Weight 68.182, kg, Start date: 01/14/15 9:00:00, Duration: 30 day, Stop date: 02/12/15 17:00:00Notes: (Same as: Colace) (Do Not Crush) Inactive 01/14/2015 [facility] influenza virus vaccine, inactivated 0.5 mL, Route: IM, Drug Form: SUSP, Daily, Start date: 01/14/15 9:00:00, Duration: 1 doses or times, Stop date: 01/14/15 9:00:00Notes: (Same as: Fluzone High-Dose) For 65 years of age of older (0.5 ml IM) Shake well before use Inactive 01/14/2015 [facility] Sodium Chloride 1000 MG Oral Tablet 1,000 mg=1 tab, PO, Q6H, X 14 day, # 56 tab, 0 Refill(s) Active 01/14/2015 [facility] baclofen 10 mg oral tablet 10 mg=1 tab, PO, TID, # 90 tab, 0 Refill(s) Active 01/14/2015 [facility] clindamycin 300 mg oral capsule 300 mg=1 cap, PO, Q6H, X 10 day, # 40 cap, 0 Refill(s) Active 01/14/2015 [facility] Acetaminophen 325 MG / Oxycodone Hydrochloride 10 MG Oral Tablet [Percocet 10/325] 1 tab, PO, Q6H, PRN for pain, X 15 day, # 60 tab, 0 Refill(s) Active 01/14/2015 [facility] atorvastatin 20 mg, 1 tab, Route: PO, Drug form: TAB, Bedtime, Dosing Weight 68.182, kg, Start date: 01/13/15 21:00:00, Duration: 30 day, Stop date: 02/11/15 21:00:00Notes: (Same As: Lipitor) No Longer Active 01/14/2015 [facility] quetiapine 200 mg, 2 tab, Route: PO, Drug form: TAB, Bedtime, Dosing Weight 68.182, kg, Start date: 01/13/15 21:00:00, Duration: 30 day, Stop date: 02/11/15 21:00:00Notes: (Same as: SEROquel) No Longer Active 01/14/2015 [facility] budesonide-formoterol 2 puff, Route: INHALATION, Drug Form: AERO/A, RBID, Start date: 01/13/15 20:00:00, Duration: 30 day, Stop date: 02/12/15 8:00:00Notes: (Same as: Symbicort) No Longer Active 01/14/2015 [facility] Robaxin 750 mg, 1 tab, Route: PO, Drug form: TAB, Q6H, Dosing Weight 68.182, kg, Start date: 01/13/15 18:00:00, Duration: 30 day, Stop date: 02/12/15 12:00:00Notes: (Same as:Robaxin) No Longer Active 01/13/2015 [facility] Acetaminophen 10 MG/ML Injectable Solution 1,000 mg, 100 mL, Route: IV, Drug form: INJ, Q6H, Dosing Weight 68.182, kg, For > or=50 kg, Start date: 01/13/15 18:00:00, Duration: 2 doses or times, Stop date: 01/14/15 0:00:00Notes: Infuse over 15 minutes Do not exceed 4gm/day of acetaminophen MEDICATION WASTE Product Size: 1000 mg Product Wasted: ___ mg No Longer Active 01/13/2015 [facility] Dexamethasone 4 mg, 1 mL, Route: IVP, Drug form: INJ, Q6H, Dosing Weight 68.182, kg, Start date: 01/13/15 18:00:00, Duration: 30 day, Stop date: 02/12/15 12:00:00Notes: Concentration: 4mg/ml No Longer Active 01/13/2015 [facility] ceFAZolin (SCIP) + Sodium Chloride 0.9% IV 100 mL 1 gm, Route: IVPB, Q8H, Dosing Weight 68.182, kg, Start date: 01/13/15 16:00:00, Duration: 1 doses or times, Stop date: 01/13/15 16:00:00Notes: (Same As: Aide Hdez) MEDICATION WASTE Product Size: 1000 mg Product Wasted: ___ mg Inactive 01/13/2015 [facility] Ondansetron 4 mg, 1 tab, Route: PO, Drug form: TAB, Q8H, Dosing Weight 68.182, kg, PRN Nausea & Vomiting, Start date: 01/13/15 13:35:00, Duration: 30 day, Stop date: 02/12/15 13:34:00, ..Special Instructions: ..Notes: (Same as: Zofran) No Longer Active 01/13/2015 [facility] Morphine 2 mg, 1 mL, Route: IVP, Drug form: INJ, Q2H, Dosing Weight 68.182, kg, PRN Pain Score 7-10, Start date: 01/13/15 13:33:00, Duration: 30 day, Stop date: 02/12/15 13:32:00Notes: (Same as:MORPhine Sulfate) No Longer Active 01/13/2015 [facility] Acetaminophen 325 MG / Hydrocodone Bitartrate 5 MG Oral Tablet [Barton 5/325] 1 tab, Route: PO, Drug Form: TAB, Dosing Weight 68.182, kg, Q4H, PRN Pain Score 1-3, Start date: 01/13/15 13:33:00, Duration: 30 day, Stop date: 02/12/15 13:32:00Notes: (Same as: Barton 325/5) Do not exceed 4gm/day of acetaminophen. No Longer Active 01/13/2015 [facility] phenol 1 spray, Route: TOP, Q2H, Drug form: SPRY, PRN Sore Throat, Start date: 01/13/15 13:33:00, Duration: 30 day, Stop date: 02/12/15 13:32:00Notes: Chloraseptic [place] (Same as: Chloraseptic, Sore Throat [place]) No Longer Active 01/13/2015 [facility] Benadryl 25 mg, 1 cap, Route: PO, Drug form: CAP, TID, Dosing Weight 68.182, kg, PRN Itching, Start date: 01/13/15 13:33:00, Duration: 30 day, Stop date: 02/12/15 13:32:00Notes: (Same as: Benadryl) No Longer Active 01/13/2015 [facility] Simethicone 40 mg, 0.5 tab, Route: PO, Drug form: CHEWTAB, Q6H, Dosing Weight 68.182, kg, PRN Gas, Start date: 01/13/15 13:33:00, Duration: 30 day, Stop date: 02/12/15 13:32:00Notes: (Same as: Mylicon) No Longer Active 01/13/2015 [facility] Zofran 4 mg, 2 mL, Route: IV, Drug form: INJ, Q8H, Dosing Weight 68.182, kg, PRN Nausea, Start date: 01/13/15 13:33:00, Duration: 30 day, Stop date: 02/12/15 13:32:00Notes: (Same as: Leon) MEDICATION WASTE Product Size: 4 mg Product Wasted: ___ mg No Longer Active 01/13/2015 [facility] Acetaminophen 325 MG / Hydrocodone Bitartrate 10 MG Oral Tablet [Barton 10/325] 1 tab, Route: PO, Drug Form: TAB, Dosing Weight 68.182, kg, Q4H, PRN Pain Score 4-6, Start date: 01/13/15 13:33:00, Duration: 30 day, Stop date: 02/12/15 13:32:00Notes: Do not exceed 4gm/day of acetaminophen. (Same as: Barton 325/10) No Longer Active 01/13/2015 [facility] Sodium Chloride 0.9% + KCL 20mEq/L 1000ml (Premix) 1,000 mL 1,000 mL, Rate: 50 ml/hr, Infuse over: 20 hr, Route: IV, Dosing Weight 68.182 kg, Total Volume: 1,000, Start date: 01/13/15 13:33:00, Duration: 30 day, Stop date: 02/12/15 13:32:00Notes: PREMIX IV - Do Not Alter No Longer Active 01/13/2015 [facility] Fentanyl 25 microgram, 0.5 mL, Route: IVP, Drug form: INJ, Q5Min, Dosing Weight 68.182, kg, PRN Pain Score 4-6, Start date: 01/13/15 12:55:00, Duration: 4 doses or times, Stop date: Limited # of timesNotes: (Same as: Sublimaze) Preservative free. Inactive 01/13/2015 [facility] Ephedrine 5 mg, 0.1 mL, Route: IVP, Drug form: INJ, Q5Min, Dosing Weight 68.182, kg, PRN Low Blood Pressure, Start date: 01/13/15 12:55:00, Duration: 30 day, Stop date: 02/12/15 12:54:00Notes: (Same as: ePHEDr ine Sulfate) Inactive 01/13/2015 [facility] Acetaminophen 1,000 mg, 100 mL, Route: IVPB, Drug form: INJ, ONCE, Dosing Weight 68.182, kg, PRN Pain Score 1-3, Start date: 01/13/15 12:55:00, Duration: 1 doses or times, Stop date: Limited # of timesNotes: Infuse over 15 minutes Do not exceed 4gm/day of acetaminophen MEDICATION WASTE Product Size: 1000 mg Product Wasted: ___ mg Inactive 01/13/2015 [facility] Hydromorphone 0.5 mg, 0.5 mL, Route: IVP, Drug form: INJ, Q5Min, Dosing Weight 68.182, kg, PRN Pain Score 7-10, Start date: 01/13/15 12:55:00, Duration: 4 doses or times, Stop date: Limited # of timesNotes: Same a s: Dilaudid Inactive 01/13/2015 [facility] Naloxone 0.04 mg, 0.1 mL, Route: IVP, Drug form: INJ, Q2MIN, Dosing Weight 68.182, kg, PRN Narcotic Reversal, Start date: 01/13/15 12:55:00, Duration: 8 doses or times, Stop date: Limited # of timesNotes: Same as Narcan Inactive 01/13/2015 [facility] Promethazine 6.25 mg, 25 mL, Route: IVPB, Drug form: SOLN, ONCE, Dosing Weight 68.182, kg, PRN Nausea & Vomiting, Start date: 01/13/15 12:55:00 Inactive 01/13/2015 [facility] Flumazenil 0.2 mg, 2 mL, Route: IVP, Drug form: INJ, PRN, Dosing Weight 68.182, kg, PRN Benzodiazepine Reversal, Initial dose, Start date: 01/13/15 12:55:00, Duration: 30 day, Stop date: 02/12/15 12:54:00Notes: (Same as: Romazicon) Inactive 01/13/2015 [facility] Racepinephrine 11.25 mg, 0.5 mL, Route: NEB, Drug Form: SOLN, Dosing Weight 68.182, kg, PRN, PRN Shortness of breath, Start date: 01/13/15 12:55:00, Duration: 30 day, Stop date: 02/12/15 12:54:00Notes: (racepinephrine *2.25% inh 0.5ml SOLN) (Same as:S2) Inactive 01/13/2015 [facility] Albuterol 0.83 MG/ML Inhalant Solution 2.49 mg, 3 mL, Route: NEB, Drug form: SOLN, Q20Min, Dosing Weight 68.182, kg, PRN Wheezing, Priority: STAT, Start date: 01/13/15 12:55:00, Duration: 30 day, Stop date: 02/12/15 12:54:00Notes: SEE RT DOCUMENTATION (Same as: Kareem) Inactive 01/13/2015 [facility] Midazolam 1 mg, 1 mL, Route: IVP, Drug form: INJ, Q5Min, Dosing Weight 68.182, kg, PRN Anxiety, Start date: 01/13/15 12:55:00, Duration: 2 doses or times, Stop date: Limited # of timesNotes: (Same as: Eloise) MEDICATION WASTE Product Size: 2 mg Product Wasted: ___ mg Inactive 01/13/2015 [facility] Glycopyrrolate 0.2 mg, 1 mL, Route: IVP, Drug form: INJ, Q5Min, Dosing Weight 68.182, kg, PRN Bradycardia, Start date: 01/13/15 12:55:00, Duration: 3 doses or times, Stop date: Limited # of timesNotes: (Same as: Per) Inactive 01/13/2015 [facility] Labetalol 10 mg, 2 mL, Route: IVP, Drug form: INJ, Q5Min, Dosing Weight 68.182, kg, PRN Elevated BP, Start date: 01/13/15 12:55:00, Duration: 5 doses or times, Stop date: Limited # of times Inactive 01/13/2015 [facility] Ondansetron 4 mg, 2 mL, Route: IVP, Drug form: INJ, ONCE, Dosing Weight 68.182, kg, PRN Nausea & Vomiting, Start date: 01/13/15 12:55:00Notes: (Same as: Leon) MEDICATION WASTE Product Size: 4 mg Product Wasted: ___ mg Inactive 01/13/2015 [facility] Levalbuterol 0.63 mg, 3 mL, Route: NEB, Drug form: SOLN, Q20Min, Dosing Weight 68.182, kg, PRN Wheezing, Start date: 01/13/15 12:55:00, Duration: 4 doses or times, Stop date: Limited # of timesNotes: SEE RT DOCUM ENTATION (Same as:Xopenex) Non-Formulary Inactive 01/13/2015 [facility] Calcium Chloride 0.0014 MEQ/ML / Potassium Chloride 0.004 MEQ/ML / Sodium Chloride 0.103 MEQ/ML / Sodium Lactate 0.028 MEQ/ML Injectable Solution 1,000 mL, Rate: 50 ml/hr, Infuse over: 20 hr, Route: IV, Dosing Weight 68.182 kg, Total Volume: 1,000, Start date: 01/13/15 12:55:00, Duration: 30 day, Stop date: 02/12/15 12:54:00 Inactive 01/13/2015 [facility] Diphenhydramine 12.5 mg, 0.25 mL, Route: IVP, Drug form: INJ, PRN, Dosing Weight 68.182, kg, PRN Itching, Start date: 01/13/15 12:55:00, Duration: 30 day, Stop date: 02/12/15 12:54:00Notes: (Same as: Benadryl) Inactive 01/13/2015 [facility] quetiapine 100 mg, 1 tab, Route: PO, Drug form: TAB, QNoon, Dosing Weight 68.182, kg, Start date: 01/13/15 12:00:00, Duration: 30 day, Stop date: 02/11/15 12:00:00Notes: (Same as: SEROquel) No Longer Active 01/13/2015 [facility] Advair Diskus 100 mcg-50 mcg inhalation powder 1 puff, Route: INHALATION, Drug Form: PWDR, Dosing Weight 68.182, kg, BID, Start date: 01/13/15 9:00:00, Duration: 30 day, Stop date: 02/11/15 17:00:00 Inactive 01/13/2015 [facility] 24 HR Metoprolol Tartrate 25 MG Extended Release Tablet [Toprol] 25 mg, 1 tab, Route: PO, Drug form: ERTAB, Q12H, Start date: 01/13/15 9:00:00, Duration: 30 day, Stop date: 02/11/15 21:00:00Notes: (Same as: Toprol XL) Do Not Crush No Longer Active 01/13/2015 [facility] lidocaine 1% injectable solution 2 mg, 0.2 ml, Route: INTRADERM, Drug Form: INJ, Dosing Weight 68.182, kg, ONCE, Start date: 01/13/15 6:13:00, Stop date: 01/13/15 6:13:00Notes: (Same as: Xylocaine) Inactive 01/13/2015 [facility] Lactated Ringers IV 1,000 mL 1,000 mL, Rate: 25 ml/hr, Infuse over: 40 hr, Route: IV, Dosing Weight 68.182 kg, Total Volume: 1,000, Start date: 01/13/15 6:13:00, Duration: 30 day, Stop date: 02/12/15 6:12:00 No Longer Active 01/13/2015 [facility] Albuterol 0.833 MG/ML / Ipratropium [place] 0.167 MG/ML Inhalant Solution 3 mL, Route: INHALATION, Drug Form: SOLN, Dosing Weight 68.182, kg, Q4H, PRN as needed for shortness of breath or wheezing, Start date: 01/13/15 6:00:00, Duration: 30 day, Stop date: 02/12/15 5:59:00Notes: (Same as: Duoneb) No Longer Active 01/13/2015 [facility] Sodium Chloride 0.9% IV IV, 75 ml/hr, ONCALL, Start date: 01/11/15 6:00:00, Duration: 1, 1,000 ml No Longer Active 01/11/2015 [facility] ceFAZolin 2 gm, 50 mL, Route: IVPB, Drug form: INJ, ONCALL, Start date: 01/11/15 6:00:00, Duration: 1 doses or times No Longer Active 01/11/2015 [facility] Ofirmev 1,000 mg, 100 mL, Route: IV, Drug form: INJ, ONCALL, Start date: 01/11/15 6:00:00, Duration: 1 doses or timesNotes: Infuse over 15 minutes Do not exceed 4gm/day of acetaminophen MEDICATION WASTE Product Size: 1000 mg Product Wasted: ___ mg No Longer Active 01/11/2015 [facility] QUEtiapine 200 mg oral tablet 200 mg=1 tab, PO, Bedtime, # 30 tab, 1 Refill(s) Active 01/05/2015 [facility] QUEtiapine 100 mg oral tablet 100 mg=1 tab, PO, Daily, takes at noon, # 30 tab, 1 Refill(s)Special Instructions: takes at noon Active 01/05/2015 [facility] metoprolol tartrate 25 mg oral tablet 25 mg=1 tab, PO, BID, # 60 tab, 0 Refill(s) Active 01/05/2015 [facility] clopidogrel 75 mg oral tablet 75 mg=1 tab, PO, Daily, # 90 tab, 3 Refill(s) No Longer Active 01/05/2015 [facility] atorvastatin 20 mg oral tablet 20 mg=1 tab, PO, Bedtime, # 90 tab, 3 Refill(s) Active 01/05/2015 [facility] baclofen 10 mg oral tablet 10 mg=1 tab, PO, TID, # 90 tab, 0 Refill(s) No Longer Active 01/05/2015 [facility] Divalproex Sodium 500 MG Enteric Coated Tablet 500 mg=1 tab, PO, BID, # 60 tab, 3 Refill(s) Active 01/05/2015 [facility] Albuterol 0.833 MG/ML / Ipratropium [place] 0.167 MG/ML Inhalant Solution 3 mL, INHALATION, Q4H, PRN Wheezing, # 30 ea, 1 Refill(s) Active 01/05/2015 [facility] Advair Diskus 100 mcg-50 mcg inhalation powder 1 puff, INHALATION, BID, # 1 ea, 0 Refill(s) Active 01/05/2015 [facility] Allergies, Adverse Reactions, Alerts Substance Category Reaction Severity Reaction type Status Date Reported Comments Source ARIPiprazole<sup>1</sup> Assertion Drug allergy Active 12/21/2013 Data migrated from [employer] on 12/06/14. Originally documented as ABILIFY. [facility] lithium<sup>2</sup> Assertion Drug allergy Active 12/21/2013 [facility]. Originally documented as LITHIUM. [facility] PARoxetine<sup>3</sup> Assertion Drug allergy Active 12/21/2013 Data migrated from [employer] on 12/06/14. Originally documented as PAXIL. [facility] risperiDONE<sup>4</sup> Assertion Drug allergy Active 12/21/2013 [facility] 12[facility]. Originally documented as RISPERDAL. [facility] venlafaxine<sup>5</sup> Assertion Drug allergy Active 12/21/2013 [facility]. Originally documented as EFFEXOR. [facility] ziprasidone<sup>6</sup> Assertion Drug allergy Active 12/21/2013 [facility] 12[facility]. Originally documented as GEODON. [facility] lithium<sup>1</sup> Assertion unk rx Drug allergy Active 12/21/2013 [facility] 12[facility]. Originally documented as LITHIUM. [facility] venlafaxine<sup>2</sup> Assertion passed out Drug allergy Active 12/21/2013 [facility]. Originally documented as EFFEXOR. [facility] ziprasidone<sup>3</sup> Assertion muscle tremors Drug allergy Active 12/21/2013 [facility]. Originally documented as GEODON. [facility] PARoxetine<sup>4</sup> Assertion hyper Drug allergy Active 12/21/2013 Data migrated from [employer] on 12/06/14. Originally documented as PAXIL. [facility] risperiDONE<sup>5</sup> Assertion muscle spasms Drug allergy Active 12/21/2013 Data migrated from [employer] on 12/06/14. Originally documented as RISPERDAL. [facility] ARIPiprazole<sup>6</sup> Assertion uncontrolled muscle spasms Drug allergy Active 12/21/2013 Data migrated from [employer] on 12/06/14. Originally documented as ABILIFY. [facility] Abilify Assertion involuntary muscle movement Drug allergy Active [facility] Effexor Assertion passed out Drug allergy Active [facility] Geodon Assertion insomnia Drug allergy Active [facility] Paxil Assertion hyper Drug allergy Active [facility] NKFA Assertion Drug allergy Active [facility] Immunizations Immunization Date Given Site Status Last Updated Comments Source influenza virus vaccine, inactivated 01/14/2015 Right Deltoid completed [place] [facility] influenza virus vaccine, inactivated 01/14/2015 Not Given [facility] Results Order Name Results Value Reference Range Date Interpretation Comments Source Spine lumbar single view DX Spine lumbar single view DX Clinical Indication: - Lumbar X-Ray 1 view. Postoperative lumbar fusion. Low back pain. Comparison: Lumbar radiographs 03/11/2017 FINDINGS: Lateral view of the lumbar spine. There are post surgical changes of T11-L1 posterior spinal fusion with transpedicular screws and vertical rods. Cement is seen at T11 and L1. There is a compression deformity at T12. Hardware appears engaged and intact. Alignment is unchanged. There are postsurgical changes of L5-S1 posterior spinal fusion with disc graft. Vertebral cement is seen at L5. Hardware appears engaged and intact. Alignment is unchanged. The paraspinal soft tissues are unremarkable. Atherosclerotic calcifications are present in the aorta. If there is further concern or neurological abnormalities on clinical exam, MRI or CT of the lumbar spine may be performed for complete assessment. IMPRESSION: Unchanged appearance of thoracolumbar and lumbosacral spinal fusion SL: [id number] 04/29/2017 - - Read by: Nena Hassan MD Dictated Date/time: 04/29/17 15:45 Electronically Signed by: Nena Hassan MD 04/29/17 15:47 FINAL REPORT [facility] Spine lumbar single view DX Spine lumbar single view DX Clinical Indication: Prior cervical fusion, postoperative assessment. Comparison: 02/06/2017 FINDINGS: The single lateral view of the lumbar spine show again shows posterior spinal fusion at T11-L1 and L5-S1 with transpedicular screws, posterior fusion rods and vertebral body bone cement. Disc space graft material again seen at L5- S1. There are no lucent areas around the implants. There is no loss of disc height. There are no fractures of the hardware, bone graft or vertebral bodies. There are no sclerotic changes in the graft or adjacent vertebrae. There is unchanged alignment of the lumbar spine. Remaining disc spaces are unremarkable. IMPRESSION: 1. Stable postsurgical changes to the lower thoracic and lumbar spine. SL: [id number] 03/11/2017 - - Read by: Kathrin Yu DO Dictated Date/time: 03/11/17 16:44 Electronically Signed by: Kathrin Yu DO 03/11/17 17:00 FINAL REPORT [facility] Spine lumbar single view DX Spine lumbar single view DX Clinical Indication: - Lumbar X-Ray 1 view Comparison: Comparison is made to the 03/05/2016 exam FINDINGS: Lateral view: At the L5-S1 disc space, there are now interpedicle screws and posterior stabilizing rods in place along with an anterior fusion cage. There is a persistent and stable grade 1 anterolisthesis. There is a chronic superior plate fracture deformity of the T12 vertebral body, which is stable. Intrapedicle screws extend from T11 to L1 with posterior stabilizing rods in place, the configuration is stable. There is no osseous compromise of spinal canal. The interpedicle screws obscure a likely vertebral plasty. The abdominal aorta is calcified without aneurysm. If there is further concern or neurological abnormalities on clinical exam, MRI or CT of the lumbar spine may be performed for complete assessment. IMPRESSION: At the L5-S1 disc space, there are now interpedicle screws and posterior stabilizing rods in place along with an anterior fusion cage. There is a persistent and stable grade 1 anterolisthesis. There is a chronic superior plate fracture deformity of the T12 vertebral body, which is stable. Intrapedicle screws extend from T11 to L1 with posterior stabilizing rods in place, the configuration is stable. SL: [id number] 02/06/2017 - - Read by: Mark Tucker MD Dictated Date/time: 02/06/17 10:10 Electronically Signed by: Mark Tucker MD 02/06/17 10:13 FINAL REPORT [facility] ELECTROLYTES AGAP 10.9 meq/L 10.0 - 20.0 01/27/2017 [facility] ELECTROLYTES eGFR 102 mL/min/1.73m2 01/27/2017 Result Comment: The eGFR is calculated using the CKD-EPI formula. In most young, healthy individuals the eGFR will be >90 mL/min/1.73m2. The eGFR declines with age. An eGFR of 60-89 may be normal in some populations, particularly the elderly, for whom the CKD-EPI formula has not been extensively validated. Use of the eGFR is not recommended in the following populations: Individuals with unstable creatinine concentrations, including patients and those with serious co-morbid conditions. Patients with extremes in muscle mass or diet. The data above are obtained from the National Kidney Disease Education Program (NKDEP) which additionally recommends that when the eGFR is used in patients with extremes of body mass index for purposes of drug dosing, the eGFR should be multiplied by the estimated BMI. [facility] ELECTROLYTES Chloride Lvl 103 meq/L 95 - 109 01/27/2017 [facility] ELECTROLYTES CO2 27 meq/L 24 - 32 01/27/2017 [facility] ELECTROLYTES Calcium Lvl 8.3 mg/dL 8.5 - 10.5 01/27/2017 [facility] ELECTROLYTES BUN 6 mg/dL 7 - 22 01/27/2017 [facility] ELECTROLYTES Potassium Lvl 3.9 meq/L 3.5 - 5.1 01/27/2017 [facility] ELECTROLYTES Creatinine Lvl 0.44 mg/dL 0.50 - 1.40 01/27/2017 [facility] ELECTROLYTES Sodium Lvl 137 meq/L 135 - 145 01/27/2017 [facility] ELECTROLYTES Glucose Lvl 109 mg/dL 70 - 99 01/27/2017 [facility] HEMATOLOGY Macrocyte 1+ *ABN* (01/27/17 4:18 AM) None Seen 01/27/2017 [facility] HEMATOLOGY Segs-Bands # 1.5 K/CMM 1.5 - 8.1 01/27/2017 [facility] HEMATOLOGY Lymphocytes # 0.5 K/CMM 1.0 - 5.5 01/27/2017 [facility] HEMATOLOGY Eosinophils # 0.1 K/CMM 0.0 - 0.5 01/27/2017 [facility] HEMATOLOGY Monocytes # 0.4 K/CMM 0.0 - 0.8 01/27/2017 [facility] HEMATOLOGY Basophils 0.7 % 0.0 - 1.0 01/27/2017 [facility] HEMATOLOGY Eosinophils 2.6 % 0.0 - 4.0 01/27/2017 [facility] HEMATOLOGY Lymphocytes 20.5 % 20.0 - 40.0 01/27/2017 [facility] HEMATOLOGY Monocytes 15.2 % 2.0 - 12.0 01/27/2017 [facility] HEMATOLOGY Segs 61.0 % 45.0 - 75.0 01/27/2017 [facility] HEMATOLOGY MCV 101.6 fL 80.0 - 98.0 01/27/2017 [facility] HEMATOLOGY Hct 27.8 % 36.0 - 48.0 01/27/2017 [facility] HEMATOLOGY MCHC 33.9 g/dL 32.0 - 36.0 01/27/2017 [facility] MCH 34.5 pg 27.0 - 31.0 01/27/2017 [facility] HEMATOLOGY WBC 2.5 K/CMM 3.7 - 10.4 01/27/2017 [facility] HEMATOLOGY Hgb 9.4 g/dL 12.0 - 16.0 01/27/2017 [facility] HEMATOLOGY RBC 2.74 M/CMM 4.20 - 5.40 01/27/2017 [facility] HEMATOLOGY RDW 13.6 % 11.5 - 14.5 01/27/2017 [facility] HEMATOLOGY MPV 8.1 fL 7.4 - 10.4 01/27/2017 [facility] HEMATOLOGY Platelet 132 K/CMM 133 - 450 01/27/2017 [facility] CHEM PANEL eGFR 103 mL/min/1.73m2 01/26/2017 Result Comment: The eGFR is calculated using the CKD-EPI formula. In most young, healthy individuals the eGFR will be >90 mL/min/1.73m2. The eGFR declines with age. An eGFR of 60-89 may be normal in some populations, particularly the elderly, for whom the CKD-EPI formula has not been extensively validated. Use of the eGFR is not recommended in the following populations: Individuals with unstable creatinine concentrations, including patients and those with serious co-morbid conditions. Patients with extremes in muscle mass or diet. The data above are obtained from the National Kidney Disease Education Program (NKDEP) which additionally recommends that when the eGFR is used in patients with extremes of body mass index for purposes of drug dosing, the eGFR should be multiplied by the estimated BMI. [facility] CHEM PANEL Calcium Lvl 7.7 mg/dL 8.5 - 10.5 01/26/2017 [facility] AGAP 9.0 meq/L 10.0 - 20.0 01/26/2017 [facility] CHEM PANEL CO2 27 meq/L 24 - 32 01/26/2017 [facility] CHEM PANEL Chloride Lvl 105 meq/L 95 - 109 01/26/2017 [facility] CHEM PANEL Potassium Lvl 4.0 meq/L 3.5 - 5.1 01/26/2017 [facility] CHEM PANEL Creatinine Lvl 0.43 mg/dL 0.50 - 1.40 01/26/2017 [facility] CHEM PANEL BUN 5 mg/dL 7 - 22 01/26/2017 [facility] CHEM PANEL Glucose Lvl 114 mg/dL 70 - 99 01/26/2017 [facility] CHEM PANEL Sodium Lvl 137 meq/L 135 - 145 01/26/2017 [facility] HEMATOLOGY Monocytes # 0.4 K/CMM 0.0 - 0.8 01/26/2017 [facility] HEMATOLOGY Segs-Bands # 2.1 K/CMM 1.5 - 8.1 01/26/2017 [facility] HEMATOLOGY Lymphocytes # 1.6 K/CMM 1.0 - 5.5 01/26/2017 [facility] HEMATOLOGY Eosinophils 0.9 % 0.0 - 4.0 01/26/2017 [facility] HEMATOLOGY Basophils 0.3 % 0.0 - 1.0 01/26/2017 [facility] HEMATOLOGY Segs 50.7 % 45.0 - 75.0 01/26/2017 [facility] HEMATOLOGY Lymphocytes 37.5 % 20.0 - 40.0 01/26/2017 [facility] HEMATOLOGY Monocytes 10.6 % 2.0 - 12.0 01/26/2017 [facility] HEMATOLOGY MCV 101.0 fL 80.0 - 98.0 01/26/2017 [facility] HEMATOLOGY MCHC 34.1 g/dL 32.0 - 36.0 01/26/2017 [facility] HEMATOLOGY RDW 13.4 % 11.5 - 14.5 01/26/2017 [facility] HEMATOLOGY Platelet 150 K/CMM 133 - 450 01/26/2017 [facility] HEMATOLOGY MPV 8.0 fL 7.4 - 10.4 01/26/2017 [facility] HEMATOLOGY MCH 34.4 pg 27.0 - 31.0 01/26/2017 [facility] HEMATOLOGY RBC 2.73 M/CMM 4.20 - 5.40 01/26/2017 [facility] HEMATOLOGY WBC 4.2 K/CMM 3.7 - 10.4 01/26/2017 [facility] HEMATOLOGY Hgb 9.4 g/dL 12.0 - 16.0 01/26/2017 [facility] HEMATOLOGY Hct 27.6 % 36.0 - 48.0 01/26/2017 [facility] CHEM PANEL eGFR 90 mL/min/1.73m2 01/25/2017 Result Comment: The eGFR is calculated using the CKD-EPI formula. In most young, healthy individuals the eGFR will be >90 mL/min/1.73m2. The eGFR declines with age. An eGFR of 60-89 may be normal in some populations, particularly the elderly, for whom the CKD-EPI formula has not been extensively validated. Use of the eGFR is not recommended in the following populations: Individuals with unstable creatinine concentrations, including patients and those with serious co-morbid conditions. Patients with extremes in muscle mass or diet. The data above are obtained from the National Kidney Disease Education Program (NKDEP) which additionally recommends that when the eGFR is used in patients with extremes of body mass index for purposes of drug dosing, the eGFR should be multiplied by the estimated BMI. [facility] CHEM PANEL Bili Total 0.4 mg/dL 0.2 - 1.3 01/25/2017 [facility] CHEM PANEL Alk Phos 54 unit/L 39 - 136 01/25/2017 [facility] CHEM PANEL AST 31 unit/L 0 - 37 01/25/2017 [facility] CHEM PANEL ALT 29 unit/L 0 - 65 01/25/2017 [facility] CHEM PANEL CO2 27 meq/L 24 - 32 01/25/2017 [facility] CHEM PANEL Albumin Lvl 3.0 g/dL 3.5 - 5.0 01/25/2017 [facility] CHEM PANEL Total Protein 6.4 g/dL 6.4 - 8.4 01/25/2017 [facility] CHEM PANEL B/C Ratio 14 6 - 25 01/25/2017 [facility] CHEM PANEL A/G Ratio 0.9 0.7 - 1.6 01/25/2017 [facility] CHEM PANEL BUN 9 mg/dL 7 - 22 01/25/2017 [facility] CHEM PANEL Creatinine Lvl 0.63 mg/dL 0.50 - 1.40 01/25/2017 [facility] CHEM PANEL Globulin 3.4 g/dL 2.7 - 4.2 01/25/2017 [facility] CHEM PANEL AGAP 8.8 meq/L 10.0 - 20.0 01/25/2017 [facility] CHEM PANEL Calcium Lvl 7.9 mg/dL 8.5 - 10.5 01/25/2017 [facility] CHEM PANEL Glucose Lvl 149 mg/dL 70 - 99 01/25/2017 [facility] CHEM PANEL Potassium Lvl 3.8 meq/L 3.5 - 5.1 01/25/2017 [facility] CHEM PANEL Sodium Lvl 133 meq/L 135 - 145 01/25/2017 [facility] CHEM PANEL Chloride Lvl 101 meq/L 95 - 109 01/25/2017 [facility] HEMATOLOGY MCHC 33.5 g/dL 32.0 - 36.0 01/25/2017 [facility] HEMATOLOGY RDW 13.4 % 11.5 - 14.5 01/25/2017 [facility] HEMATOLOGY MPV 7.9 fL 7.4 - 10.4 01/25/2017 [facility] HEMATOLOGY Platelet 178 K/CMM 133 - 450 01/25/2017 [facility] HEMATOLOGY RBC 3.05 M/CMM 4.20 - 5.40 01/25/2017 [facility] HEMATOLOGY WBC 5.1 K/CMM 3.7 - 10.4 01/25/2017 [facility] HEMATOLOGY Hgb 10.4 g/dL 12.0 - 16.0 01/25/2017 [facility] HEMATOLOGY Hct 31.1 % 36.0 - 48.0 01/25/2017 [facility] HEMATOLOGY MCV 101.7 fL 80.0 - 98.0 01/25/2017 [facility] HEMATOLOGY MCH 34.1 pg 27.0 - 31.0 01/25/2017 [facility] HEMATOLOGY Segs-Bands # 3.2 K/CMM 1.5 - 8.1 01/25/2017 [facility] HEMATOLOGY Basophils 0.2 % 0.0 - 1.0 01/25/2017 [facility] HEMATOLOGY Lymphocytes 27.2 % 20.0 - 40.0 01/25/2017 [facility] HEMATOLOGY Monocytes 10.0 % 2.0 - 12.0 01/25/2017 [facility] HEMATOLOGY Eosinophils 0.1 % 0.0 - 4.0 01/25/2017 [facility] HEMATOLOGY Lymphocytes # 1.4 K/CMM 1.0 - 5.5 01/25/2017 [facility] Monocytes # 0.5 K/CMM 0.0 - 0.8 01/25/2017 [facility] HEMATOLOGY Segs 62.5 % 45.0 - 75.0 01/25/2017 [facility] Macrocyte 1+ *ABN* (01/25/17 4:20 AM) None Seen 01/25/2017 [facility] Fluoroscopy assist to 1 hour DX Fluoroscopy assist to 1 hour DX Clinical Indication: L5-S1 PLIF - SURGERY. Comparison: None. FINDINGS: 197 spot fluoroscopic views are submitted for evaluation. The images show L5-S1 posterior fusion changes. Fluoroscopic time 121.47 seconds. 132.98 mGy exposure. The exam is otherwise limited. Recommend correlation with the operative report. IMPRESSION: 1. Spot fluoroscopic images from the OR, as noted above. SL: [id number] 01/24/2017 - - Read by: Kathrin Yu DO Dictated Date/time: 01/24/17 14:31 Electronically Signed by: Kathrin Yu DO 01/24/17 14:33 FINAL REPORT [facility] BLOOD BANK RESULTS ABO/Rh O POS 01/17/2017 [facility] BLOOD [facility] RESULTS Antibody Scrn Negative (01/17/17 4:15 PM) 01/17/2017 [facility] HEMATOLOGY INR 0.95 0.85 - 1.17 01/17/2017 [facility] HEMATOLOGY PTT 28.1 s 22.9 - 35.8 01/17/2017 [facility] HEMATOLOGY PT 12.9 s 12.0 - 14.7 01/17/2017 [facility] URINE AND STOOL UA Urobilinogen <=1.0 mg/dL 0.1 - 1.0 01/17/2017 [facility] URINE AND STOOL UA RBC 2 /HPF 0 - 2 01/17/2017 [facility] URINE AND STOOL UA Mucus Few /LPF None Seen /LPF 01/17/2017 [facility] URINE AND STOOL UA Protein Negative mg/dL Negative mg/dL 01/17/2017 [facility] URINE AND STOOL UA Ketones Negative mg/dL Negative mg/dL 01/17/2017 [facility] URINE AND STOOL UA Glucose Negative mg/dL Negative mg/dL 01/17/2017 [facility] URINE AND STOOL UA Bili Negative *NA* (01/17/17 4:15 PM) Negative 01/17/2017 [facility] URINE AND STOOL UA Nitrite Negative (01/17/17 4:15 PM) Negative 01/17/2017 [facility] URINE AND STOOL UA Blood Negative (01/17/17 4:15 PM) Negative 01/17/2017 [facility] URINE AND STOOL UA Sq Epi Moderate /LPF Few /LPF 01/17/2017 [facility] URINE AND STOOL UA Leuk Est Negative (01/17/17 4:15 PM) Negative 01/17/2017 [facility] URINE AND STOOL UA pH 6.0 5.0 - 8.0 01/17/2017 [facility] URINE AND STOOL UA Spec Grav 1.008 <=1.030 01/17/2017 [facility] URINE AND STOOL UA Color Yellow *NA* (01/17/17 4:15 PM) Yellow 01/17/2017 [facility] URINE AND STOOL UA Turbidity Clear (01/17/17 4:15 PM) Clear 01/17/2017 [facility] Chest 2 views DX Chest 2 views DX Clinical Indication: - LUMBAR STENOSIS. Preop for surgical clearance. Comparison: August 18, 2015. TECHNIQUE: PA and lateral chest radiographs were performed. (2 views) FINDINGS: LUNGS: Normal lung volumes. No interstitial or airspace opacities. No pleural effusions or pneumothorax. HEART AND MEDIASTINUM: The heart size is normal. There is a left subclavian dual chamber pacemaker with leads overlying the right side of the heart. The pulmonary vasculature is normal. There is a mildly tortuous thoracic aorta. The trachea is midline. OSSEOUS STRUCTURES: The patient is status post prior lower cervical disc fusion. The patient is status post prior lower thoracic and upper lumbar posterior fusion. There is generalized osteopenia. IMPRESSION: 1. No acute cardiopulmonary disease. SL: [id number] 01/17/2017 - - Read by: Jalil Randolph MD Dictated Date/time: 01/17/17 16:56 Electronically Signed by: Jalil Randolph MD 01/17/17 16:57 FINAL REPORT [facility] Spine lumbar wo contrast CT Spine lumbar wo contrast CT Clinical Indication: Chronic low back pain, difficulty walking, prior surgery Comparison: None TECHNIQUE: Sequential trans-axial images were obtained with a multi-detector helical CT. Coronal and sagittal reconstructions were obtained. CT Radiation Dose DLP 612.32 mGy-cm FINDINGS: ALIGNMENT AND GENERAL ASSESSMENT: There are 5 nonrib-bearing lumbar vertebral segments. There is prior T12-L2 posterior fusion surrounding a chronic moderate compression deformity at L1. Bone cement surrounds the ends of the pedicle screws. There is no abnormal lucency surrounding the hardware. There are no endplate erosive changes. There is 5 mm retropulsion of the posterior superior aspects of L1 causing mild spinal canal stenosis. There is persistent 4 mm anterolisthesis L5 on S1. Remaining alignment appears normal. DISK SPACES AND SOFT TISSUES: MRI has higher sensitivity and specificity for disc and soft tissue disease. T12-L1: The disk is unremarkable. The facet joints appear unremarkable. There is no central or foraminal stenosis. L1-L2: The disk is unremarkable. The facet joints appear unremarkable. There is no central or foraminal stenosis. L2-L3: The disk is unremarkable. The facet joints appear unremarkable. There is no central or foraminal stenosis. L3-L4: The disk is unremarkable. There is mild facet hypertrophy. There is mild bilateral foraminal stenosis but no spinal canal stenosis. L4-L5: There is mild generalized disc bulging. There is moderate facet hypertrophy. There is mild bilateral foraminal stenosis and mild bilateral lateral recess stenosis. L5-S1: Grade 1 anterolisthesis again noted. There is moderate superimposed generalized disc bulging and severe bilateral facet hypertrophy. There is severe spinal canal stenosis and severe bilateral foraminal stenosis. If there is further concern, CT myelogram or MRI of the lumbar spine may be performed for complete assessment. IMPRESSION: 1. Prior T12-L2 posterior fusion surrounding chronic compression deformity at L1. 5 mm retropulsion of L1 causes mild spinal canal stenosis, unchanged from previous exam. No hardware complication appreciated. 2. 4 mm anterolisthesis L5 on S1. Moderate associated disc bulging and severe facet hypertrophy also cause severe spinal canal stenosis and severe bilateral foraminal stenosis. 3. Mild bilateral foraminal stenosis at L3-L4 and L4-L5 due to facet hypertrophy and disc bulging. SL: [id number] 12/31/2016 - - Read by: Kathrin Yu DO Dictated Date/time: 12/31/16 16:45 Electronically Signed by: Kathrin Yu DO 12/31/16 17:03 FINAL REPORT [facility] Spine thoracic wo contrast CT Spine thoracic wo contrast CT Study: Spine thoracic wo contrast CT 03/16/2016 2:37 PM ICT ACCOUNT MANAGER Ordering Physician: Melissa Jack MD Clinical Indication: m54.14. 70-year-old status post fall on 11/30/2015 with fracture of T12. Neck, shoulder and thoracic pain beginning approximately 6 weeks ago. Comparison: None Technique: Multi-detector CT imaging of the thoracic spine is performed. Coronal and sagittal reconstructions are obtained. CT Radiation Dose DLP 682 mGy-cm FINDINGS: Lower cervical lordosis is straightened. The patient has undergone previous anterior cervical interbody fusions with instrumentation from C5 to C7. Please see report of CT scan of cervical spine for further details. Thoracic kyphosis is adequate. There is a [id number] chronic anterior wedge compression deformity of T12, with mild retropulsion of the posterior superior corner of T12 into the ventral canal. There is loss of disc height from T5-6 to T8-9. Multiple level anterior spondylosis is seen. Vertebral body alignment is normal. There is no evidence for prevertebral soft tissue swelling, acute fracture or destructive lesion. No spondylolisthesis is seen. At T2-3, there is minimal bilateral facet arthrosis. At C4-5, minimal facet arthrosis is present on the left. At T5-6, there is mild right facet arthrosis. At T6/7, a 5 or 6 mm broad-based peripherally calcified right paracentral disc protrusion is present with superior extrusion extending behind the lower one third of T6, measuring 8 mm craniocaudal and extending into the right neural exit foramen. There is impression upon the ventral aspect of the thecal sac, with borderline central stenosis; AP thecal sac measures approximately 10 mm. There is mild right foraminal stenosis, at the level of the exiting right T6 root. At T7-8, there is a 2 mm peripherally calcified right parasagittal disc protrusion, with minimal indentation of the ventral thecal sac. At T10-11, there is a minimal dorsal bulge, without appreciable nerve root impingement. Mild to moderate chronic anterior wedge compression deformity of T12 again noted, with retropulsion of the posterior superior corner of T12 into the ventral canal. There is borderline or mild central stenosis at the T11-12 and upper T12 levels; AP thecal sac measures 9 or 10 mm. Mild posterior lateral foraminal spondylosis is present, with moderate bilateral osseous foraminal stenoses and T11-12. The patient has undergone posterior fusion with instrumentation from T11 to L1. Hardware consists of bilateral T11, right T12 and bilateral L1 pedicular screws which are affixed with vertical stabilization bars. Hardware appears intact and well-positioned, with no evidence for loosening or failure. There is a small amount of cement within the T11 and L1 vertebral bodies. The T12-L1 and L1-2 disc levels are unremarkable. No acute fracture or spondylolisthesis is seen. No gross paraspinal soft tissue abnormalities are seen. CT myelogram or MRI of the cervical spine may be performed, if there is further concern. IMPRESSION: No prevertebral soft tissue swelling, acute fracture or spondylolisthesis is seen. There is a [id number]-[id number] chronic anterior wedge compression deformity of T12, with mild retropulsion of the posterior-superior corner of T12 into the ventral canal. The patient has undergone posterior fusion with instrumentation from T11 to L1. Hardware appears intact and well-positioned, with no evidence for loosening or failure. At T11-12, there is borderline or mild central stenosis, with moderate osseous foraminal narrowing bilaterally. At T6/7, there is a 5 or 6 mm broad-based peripherally calcified chronic right paracentral disc protrusion with superior extrusion extending behind the lower one third of T6, measuring 8 mm craniocaudal. There is extension into the right neural exit foramen, with mild right foraminal stenosis. Borderline central stenosis is seen. At T7-8, a 2 mm peripherally calcified right parasagittal disc protrusion minimally indents the ventral thecal sac. No definite nerve root impingement identified. SL: [id number] 03/16/2016 - - Read by: Mary Walden MD Dictated Date/time: 03/18/16 01:38 Electronically Signed by: Mary Walden MD 03/18/16 01:55 FINAL REPORT [facility] Spine cervical wo contrast CT Spine cervical wo contrast CT Study: Spine cervical wo contrast CT 03/16/2016 2:36 PM ICT ACCOUNT MANAGER Ordering Physician: Melissa Jack MD Clinical Indication: m54.12. 70-year-old status post fall with cervicalgia and shoulder pain. Comparison: None Technique: Multi-detector CT imaging of the cervical spine is performed. Coronal and sagittal reconstructions are obtained. CT Radiation Dose DLP 549 mGy-cm FINDINGS: Cervical lordosis is straightened. Vertebral body heights are adequately maintained, with normal alignment. There is no evidence for prevertebral soft tissue swelling, fracture or destructive lesion. No spondylolisthesis is seen. Articulations of the occipital condyles and lateral masses of C1 and articulations of the lateral masses of C1 and C2 are normal. There is advanced degenerative change at the atlantodens articulation. At C2-3, severe right facet arthropathy is present, with 1 mm degenerative anterolisthesis. There is minimal right uncinate spur. Marked right osseous foraminal stenosis is present. A broad-based 2 or 3 mm posterior disc protrusion is suspected, with contact but no indentation of the cord. There is ligamentous hypertrophy bilaterally. Mild central stenosis is present; AP thecal sac measures 9 mm. At C3-4, mild to moderate right facet arthrosis is present, without appreciable osseous foraminal narrowing. A 2 or 3 mm broad-based disc protrusion is suspected, with contact of the cord, flattening the ventral C4 rootlets and mild central stenosis. At C4-5, a 3 mm broad-based left lateralizing disc protrusion causes impression upon the left cord. There is probably mild to moderate central stenosis; AP thecal sac measures 8 or 9 mm. Minimal right facet arthrosis is present. There are anterior cervical interbody fusions with instrumentation from C5 to C7. Hardware consists of anterior metallic plate with paired screws in the C5-C7 vertebral bodies. Hardware appears intact, with no evidence for loosening or failure. There is moderate osseous bridging across the anterior intervertebral disc space at C5-6. There may be tenuous osseous bridging across the anterior intervertebral disc space at C6/7. At C5-6, mild left facet arthrosis is noted with moderate to marked bilateral uncinate spurs. There are moderate to marked osseous foraminal stenoses, worse on the left than the right. At C6/7, mild right and moderate to marked left uncinate spurs and osseous foraminal stenoses are seen. The C7-T1-T2-3 disc levels are unremarkable. Inferior right mastoid sclerosis is present, with mild inferior right mastoid air cell opacification. IMPRESSION: Anterior cervical interbody fusions with instrumentation are present from C5 to C7. Hardware appears intact and well-positioned. There is moderate osseous bridging across the anterior intervertebral disc space at C5-6. There may be tenuous osseous bridging across the intervertebral disc space at C6/7. Moderate to marked bilateral C5-6 and left C6/7 osseous foraminal stenoses are seen. 2 or 3 mm broad-based disc protrusions are suspected from C2-3 to C4-5, with mild central stenosis at all 3 levels. At C2-3, there is severe right facet arthrosis with marked right osseous foraminal stenosis. SL: [id number] 03/16/2016 - - Read by: Mary Walden MD Dictated Date/time: 03/17/16 03:29 Electronically Signed by: Mary Walden MD 03/17/16 03:44 [facility] Sp[facility] lumbar single view DX Spine lumbar single view DX LUMBAR SPINE Clinical Indication: Status post fall with back pain Comparison: 12/21/2015 FINDINGS: Single lateral view of the lumbar spine was performed. There is posterior fusion and cement of the T11-L1 vertebral bodies with a compression fracture of L1. There is grade 1-2 anterolisthesis of L5 on S1. IMPRESSION: 1. Stable posterior fusion of T11-L1 with an unchanged compression fracture of T12. 2. Stable grade 1-2 anterolisthesis of L5 on S1. SL: [id number] 03/05/2016 - - Read by: Anuel Vasquez MD Dictated Date/time: 03/05/16 13:16 Electronically Signed by: Anuel Vasquez MD 03/05/16 13:19 FINAL REPORT [facility] Spine thoracolumbar 2 views DX Spine thoracolumbar 2 views DX EXAM: XR THORACOLUMBAR SPINE 2 VIEWS DATE: 12/20/2015 8:00 AM CDT INDICATION: pain COMPARISON: 05/31/2015 TECHNIQUE: AP and lateral radiographs of the thoracolumbar junction, shows from T8 to S5. FINDINGS: There has been interval posterior fusion of T11, T12, and L1 posteriorly. There is stable 9 mm anterior listhesis of L5 onto S1 along with intervertebral disc space narrowing. There are posterior skin nathaniel identified. No soft tissue abnormality is identified. IMPRESSION: 1. Status post posterior fusion of T11, T12, L1. 2. Stable anterior listhesis of L5 on S1. 12/21/2015 - - Read by: Garret Rosa MD Dictated Date/time: 12/21/15 10:50 Electronically Signed by: Garret Rosa MD 12/21/15 10:52 FINAL REPORT [facility] CHEM PANEL Magnesium Lvl 3.0 mg/dL 1.8 - 2.4 12/05/2015 [facility] CHEM PANEL Creatinine Lvl 0.46 mg/dL 0.50 - 1.40 12/05/2015 [facility] CHEM PANEL Sodium Lvl 137 meq/L 135 - 145 12/05/2015 [facility] CHEM PANEL BUN 19 mg/dL 7 - 22 12/05/2015 [facility] CHEM PANEL Glucose Lvl 155 mg/dL 70 - 99 12/05/2015 [facility] CHEM PANEL eGFR 102 mL/min/1.73m2 12/05/2015 Result Comment: The eGFR is calculated using the CKD-EPI formula. In most young, healthy individuals the eGFR will be >90 mL/min/1.73m2. The eGFR declines with age. An eGFR of 60-89 may be normal in some populations, particularly the elderly, for whom the CKD-EPI formula has not been extensively validated. Use of the eGFR is not recommended in the following populations: Individuals with unstable creatinine concentrations, including patients and those with serious co-morbid conditions. Patients with extremes in muscle mass or diet. The data above are obtained from the National Kidney Disease Education Program (NKDEP) which additionally recommends that when the eGFR is used in patients with extremes of body mass index for purposes of drug dosing, the eGFR should be multiplied by the estimated BMI. [facility] CHEM PANEL Bili Total 0.6 mg/dL 0.2 - 1.3 12/05/2015 [facility] CHEM PANEL AST 21 unit/L 0 - 37 12/05/2015 [facility] CHEM PANEL ALT 20 unit/L 0 - 65 12/05/2015 [facility] CHEM PANEL Alk Phos 62 unit/L 39 - 136 12/05/2015 [facility] CHEM PANEL Albumin Lvl 2.4 g/dL 3.5 - 5.0 12/05/2015 [facility] CHEM PANEL CO2 28 meq/L 24 - 32 12/05/2015 [facility] CHEM PANEL Calcium Lvl 7.4 mg/dL 8.5 - 10.5 12/05/2015 [facility] CHEM PANEL Total Protein 5.3 g/dL 6.4 - 8.4 12/05/2015 [facility] CHEM PANEL Potassium Lvl 4.7 meq/L 3.5 - 5.1 12/05/2015 [facility] CHEM PANEL Chloride Lvl 103 meq/L 95 - 109 12/05/2015 [facility] CHEM PANEL B/C Ratio 41 6 - 25 12/05/2015 [facility] CHEM PANEL AGAP 10.7 meq/L 10.0 - 20.0 12/05/2015 [facility] CHEM PANEL A/G Ratio 0.8 0.7 - 1.6 12/05/2015 [facility] CHEM PANEL Globulin 2.9 g/dL 2.7 - 4.2 12/05/2015 [facility] HEMATOLOGY Segs 79.5 % 45.0 - 75.0 12/05/2015 [facility] HEMATOLOGY Basophils 0.2 % 0.0 - 1.0 12/05/2015 [facility] HEMATOLOGY Monocytes 6.4 % 2.0 - 12.0 12/05/2015 [facility] HEMATOLOGY Lymphocytes 13.9 % 20.0 - 40.0 12/05/2015 [facility] HEMATOLOGY Segs-Bands # 3.8 K/CMM 1.5 - 8.1 12/05/2015 [facility] HEMATOLOGY Lymphocytes # 0.7 K/CMM 1.0 - 5.5 12/05/2015 [facility] HEMATOLOGY Monocytes # 0.3 K/CMM 0.0 - 0.8 12/05/2015 [facility] HEMATOLOGY MPV 7.2 fL 7.4 - 10.4 12/05/2015 [facility] HEMATOLOGY Platelet 269 K/CMM 133 - 450 12/05/2015 [facility] HEMATOLOGY RDW 15.8 % 11.5 - 14.5 12/05/2015 [facility] HEMATOLOGY MCHC 33.1 g/dL 32.0 - 36.0 12/05/2015 [facility] HEMATOLOGY Hct 26.7 % 36.0 - 48.0 12/05/2015 [facility] HEMATOLOGY Hgb 8.8 g/dL 12.0 - 16.0 12/05/2015 [facility] RBC 2.73 M/CMM 4.20 - 5.40 12/05/2015 [facility] WBC 4.8 K/CMM 3.7 - 10.4 12/05/2015 [facility] MCH 32.4 pg 27.0 - 31.0 12/05/2015 [facility] MCV 97.9 fL 80.0 - 98.0 12/05/2015 [facility] Abdomen AP DX Abdomen AP DX Clinical Indication: Abdominal distension Comparison: Comparison is made to abdomen radiograph examination dated 12/03/2015. FINDINGS: The AP supine view of the abdomen shows skin nathaniel in a vertical orientation at the midline at the upper abdomen. Spinal fusion hardware is present at the thoracolumbar junction. There is diffuse bony demineralization. Multiple gas distended loops of colon are present throughout the abdomen. Gas-filled loops of small bowel which do not appear significantly distended or also present throughout the abdomen. No definite gas over the expected location of the rectum. No convincing radiographic evidence of pneumatosis intestinalis or portal venous gas. The lung bases are not well evaluated on this examination. IMPRESSION: 1. Skin nathaniel in place as described above with nonspecific gaseous distention of the colon. No overt dilation of small bowel loops identified. No gas over the expected location of the rectum. SL: [id number] 12/04/2015 - - Read by: Kameron Freedman MD Dictated Date/time: 12/04/15 09:49 Electronically Signed by: Kameron Freedman MD 12/04/15 09:51 FINAL REPORT [facility] CHEM PANEL Magnesium Lvl 4.5 mg/dL 1.8 - 2.4 12/04/2015 Result Comment: Critical Result(s) called to catherine moody at 0511 by [facility]. Read back OK. [facility] CHEM PANEL eGFR 96 mL/min/1.73m2 12/04/2015 Result Comment: The eGFR is calculated using the CKD-EPI formula. In most young, healthy individuals the eGFR will be >90 mL/min/1.73m2. The eGFR declines with age. An eGFR of 60-89 may be normal in some populations, particularly the elderly, for whom the CKD-EPI formula has not been extensively validated. Use of the eGFR is not recommended in the following populations: Individuals with unstable creatinine concentrations, including patients and those with serious co-morbid conditions. Patients with extremes in muscle mass or diet. The data above are obtained from the National Kidney Disease Education Program (NKDEP) which additionally recommends that when the eGFR is used in patients with extremes of body mass index for purposes of drug dosing, the eGFR should be multiplied by the estimated BMI. [facility] CHEM PANEL CO2 27 meq/L 24 - 32 12/04/2015 [facility] CHEM PANEL Sodium Lvl 136 meq/L 135 - 145 12/04/2015 [facility] CHEM PANEL Potassium Lvl 3.1 meq/L 3.5 - 5.1 12/04/2015 [facility] CHEM PANEL Chloride Lvl 101 meq/L 95 - 109 12/04/2015 [facility] CHEM PANEL Creatinine Lvl 0.55 mg/dL 0.50 - 1.40 12/04/2015 [facility] CHEM PANEL Calcium Lvl 8.2 mg/dL 8.5 - 10.5 12/04/2015 [facility] CHEM PANEL B/C Ratio 22 6 - 25 12/04/2015 [facility] CHEM PANEL Total Protein 6.5 g/dL 6.4 - 8.4 12/04/2015 [facility] CHEM PANEL AGAP 11.1 meq/L 10.0 - 20.0 12/04/2015 [facility] CHEM PANEL Globulin 3.7 g/dL 2.7 - 4.2 12/04/2015 [facility] CHEM PANEL Albumin Lvl 2.8 g/dL 3.5 - 5.0 12/04/2015 [facility] CHEM PANEL ALT 27 unit/L 0 - 65 12/04/2015 [facility] CHEM PANEL A/G Ratio 0.8 0.7 - 1.6 12/04/2015 [facility] CHEM PANEL AST 34 unit/L 0 - 37 12/04/2015 [facility] CHEM PANEL Alk Phos 82 unit/L 39 - 136 12/04/2015 [facility] CHEM PANEL Bili Total 0.5 mg/dL 0.2 - 1.3 12/04/2015 [facility] CHEM PANEL Glucose Lvl 205 mg/dL 70 - 99 12/04/2015 [facility] CHEM PANEL BUN 12 mg/dL 7 - 22 12/04/2015 [facility] HEMATOLOGY Segs-Bands # 6.1 K/CMM 1.5 - 8.1 12/04/2015 [facility] HEMATOLOGY Monocytes 10.4 % 2.0 - 12.0 12/04/2015 [facility] HEMATOLOGY Monocytes # 0.8 K/CMM 0.0 - 0.8 12/04/2015 [facility] HEMATOLOGY Lymphocytes 9.6 % 20.0 - 40.0 12/04/2015 [facility] HEMATOLOGY Lymphocytes # 0.7 K/CMM 1.0 - 5.5 12/04/2015 [facility] HEMATOLOGY Segs 80.0 % 45.0 - 75.0 12/04/2015 [facility] HEMATOLOGY RBC 3.52 M/CMM 4.20 - 5.40 12/04/2015 [facility] HEMATOLOGY WBC 7.6 K/CMM 3.7 - 10.4 12/04/2015 [facility] HEMATOLOGY Platelet 335 K/CMM 133 - 450 12/04/2015 [facility] HEMATOLOGY RDW 15.9 % 11.5 - 14.5 12/04/2015 [facility] HEMATOLOGY MPV 7.4 fL 7.4 - 10.4 12/04/2015 [facility] HEMATOLOGY MCH 32.3 pg 27.0 - 31.0 12/04/2015 [facility] HEMATOLOGY MCV 97.2 fL 80.0 - 98.0 12/04/2015 [facility] H[facility]AT[facility] MCHC 33.2 g/dL 32.0 - 36.0 12/04/2015 [facility] HEMATOLOGY Hct 34.2 % 36.0 - 48.0 12/04/2015 [facility] HEMATOLOGY Hgb 11.4 g/dL 12.0 - 16.0 12/04/2015 [facility] TOXICOLOGY Vanco Tr 13.2 ug/ml 12/04/2015 [facility] TOXICOLOGY Vanco Tr TND TBD 12/04/2015 [facility] HEMATOLOGY Monocytes 5.7 % 2.0 - 12.0 12/03/2015 [facility] HEMATOLOGY Lymphocytes # 0.7 K/CMM 1.0 - 5.5 12/03/2015 [facility] HEMATOLOGY Segs-Bands # 4.1 K/CMM 1.5 - 8.1 12/03/2015 [facility] HEMATOLOGY Monocytes # 0.3 K/CMM 0.0 - 0.8 12/03/2015 [facility] HEMATOLOGY Basophils 0.4 % 0.0 - 1.0 12/03/2015 [facility] HEMATOLOGY Eosinophils 0.7 % 0.0 - 4.0 12/03/2015 [facility] HEMATOLOGY Lymphocytes 12.9 % 20.0 - 40.0 12/03/2015 [facility] HEMATOLOGY Segs 80.3 % 45.0 - 75.0 12/03/2015 [facility] HEMATOLOGY RBC 2.88 M/CMM 4.20 - 5.40 12/03/2015 [facility] HEMATOLOGY MPV 8.0 fL 7.4 - 10.4 12/03/2015 [facility] HEMATOLOGY Hct 28.3 % 36.0 - 48.0 12/03/2015 [facility] HEMATOLOGY MCV 98.5 fL 80.0 - 98.0 12/03/2015 [facility] HEMATOLOGY MCH 32.8 pg 27.0 - 31.0 12/03/2015 [facility] HEMATOLOGY RDW 15.9 % 11.5 - 14.5 12/03/2015 [facility] HEMATOLOGY Platelet 151 K/CMM 133 - 450 12/03/2015 [facility] HEMATOLOGY MCHC 33.3 g/dL 32.0 - 36.0 12/03/2015 [facility] HEMATOLOGY WBC 5.1 K/CMM 3.7 - 10.4 12/03/2015 [facility] HEMATOLOGY Hgb 9.4 g/dL 12.0 - 16.0 12/03/2015 [facility] CHEM PANEL Bili Total 0.6 mg/dL 0.2 - 1.3 12/03/2015 [facility] CHEM PANEL Alk Phos 69 unit/L 39 - 136 12/03/2015 [facility] CHEM PANEL eGFR 106 mL/min/1.73m2 12/03/2015 Result Comment: The eGFR is calculated using the CKD-EPI formula. In most young, healthy individuals the eGFR will be >90 mL/min/1.73m2. The eGFR declines with age. An eGFR of 60-89 may be normal in some populations, particularly the elderly, for whom the CKD-EPI formula has not been extensively validated. Use of the eGFR is not recommended in the following populations: Individuals with unstable creatinine concentrations, including patients and those with serious co-morbid conditions. Patients with extremes in muscle mass or diet. The data above are obtained from the National Kidney Disease Education Program (NKDEP) which additionally recommends that when the eGFR is used in patients with extremes of body mass index for purposes of drug dosing, the eGFR should be multiplied by the estimated BMI. [facility] CHEM PANEL ALT 25 unit/L 0 - 65 12/03/2015 [facility] CHEM PANEL A/G Ratio 0.7 0.7 - 1.6 12/03/2015 [facility] CHEM PANEL AST 30 unit/L 0 - 37 12/03/2015 [facility] CHEM PANEL Albumin Lvl 2.4 g/dL 3.5 - 5.0 12/03/2015 [facility] CHEM PANEL Total Protein 5.8 g/dL 6.4 - 8.4 12/03/2015 [facility] CHEM PANEL Globulin 3.4 g/dL 2.7 - 4.2 12/03/2015 [facility] CHEM PANEL B/C Ratio 15 6 - 25 12/03/2015 [facility] CHEM PANEL Calcium Lvl 8.0 mg/dL 8.5 - 10.5 12/03/2015 [facility] CHEM PANEL AGAP 9.2 meq/L 10.0 - 20.0 12/03/2015 [facility] CHEM PANEL CO2 27 meq/L 24 - 32 12/03/2015 [facility] CHEM PANEL Chloride Lvl 105 meq/L 95 - 109 12/03/2015 [facility] CHEM PANEL Potassium Lvl 4.2 meq/L 3.5 - 5.1 12/03/2015 [facility] CHEM PANEL Sodium Lvl 137 meq/L 135 - 145 12/03/2015 [facility] CHEM PANEL Creatinine Lvl 0.41 mg/dL 0.50 - 1.40 12/03/2015 Result Comment: reviewed all results 12/03/2015 04:23 [facility] CHEM PAN[facility] BUN 6 mg/dL 7 - 22 12/03/2015 [facility] CHEM PANEL Glucose Lvl 164 mg/dL 70 - 99 12/03/2015 [facility] SPECIAL CHEMISTRY Hgb A1C 5.8 % <=5.6 % 12/03/2015 [facility] Abdomen AP DX Abdomen AP DX Clinical Indication: Abdominal distension. Comparison: CT chest abdomen pelvis 11/30/2015.. FINDINGS: AP supine view of the abdomen is performed. Nonobstructive bowel gas pattern. No abnormal dilatation of bowel loops. No pneumatosis or mass effect. No suspicious radiopaque densities noted. Spine fusion hardware noted at the thoracic lumbar junction with overlying skin nathaniel. IMPRESSION: Unremarkable radiographic evaluation of the abdomen. SL: [id number] 12/03/2015 - - Read by: Joey Lima MD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 Basophils # 0.0 K/CMM 0.0 - 0.2 01/14/2015 [facility] HEMATOLOGY Monocytes # 0.2 K/CMM 0.0 - 0.8 01/14/2015 [facility] HEMATOLOGY Eosinophils # 0.0 K/CMM 0.0 - 0.5 01/14/2015 [facility] HEMATOLOGY Lymphocytes # 0.7 K/CMM 1.0 - 5.5 01/14/2015 [facility] HEMATOLOGY Segs-Bands # 4.6 K/CMM 1.5 - 8.1 01/14/2015 [facility] HEMATOLOGY Lymphocytes 12.3 % 20.0 - 40.0 01/14/2015 [facility] HEMATOLOGY Segs 83.4 % 45.0 - 75.0 01/14/2015 [facility] HEMATOLOGY Eosinophils 0.0 % 0.0 - 4.0 01/14/2015 [facility] HEMATOLOGY Basophils 0.2 % 0.0 - 1.0 01/14/2015 [facility] HEMATOLOGY Monocytes 4.1 % 2.0 - 12.0 01/14/2015 [facility] Fluoroscopy assist to 1 hour DX Fluoroscopy assist to 1 hour DX Name: ANDRES CARROLL : 1945 SEX: F Ordering Physician: Melissa Jack Fluoroscopy assist to 1 hour : Jan 12, 2015 05:48:00 PM. CLINICAL INDICATION: C5-7 FUSION - SURGERY Comparison Examination: None FINDINGS/IMPRESSION: Spot fluoroscopic images obtained in the operating room demonstrate C5-C7 anterior cervical fusion. Please see operative report for further details. Fluoroscopy time: 144 seconds SL: 24 01/13/2015 - - Read by: Nena Hassan MD Dictated Date/time: 01/13/15 13:15 Electronically Signed by: Nena Hassan MD 01/13/15 13:16 FINAL REPORT [facility] BLOOD BANK RESULTS Antibody Scrn Negative (01/05/15 1:50 PM) 01/05/2015 [facility] BLOOD BANK RESULTS ABO/Rh O POS 01/05/2015 [facility] ELECTROLYTES AGAP 10.5 meq/L 10.0 - 20.0 01/05/2015 [facility] ELECTROLYTES A/G Ratio 0.9 0.7 - 1.6 01/05/2015 [facility] ELECTROLYTES B/C Ratio 13 6 - 25 01/05/2015 [facility] ELECTROLYTES Globulin 3.6 g/dL 2.0 - 4.0 01/05/2015 [facility] ELECTROLYTES eGFR 89 mL/min/1.73m2 01/05/2015 Result Comment: The eGFR is calculated using the CKD-EPI formula. In most young, healthy individuals the eGFR will be >90 mL/min/1.73m2. The eGFR declines with age. An eGFR of 60-89 may be normal in some populations, particularly the elderly, for whom the CKD-EPI formula has not been extensively validated. Use of the eGFR is not recommended in the following populations: Individuals with unstable creatinine concentrations, including patients and those with serious co-morbid conditions. Patients with extremes in muscle mass or diet. The data above are obtained from the National Kidney Disease Education Program (NKDEP) which additionally recommends that when the eGFR is used in patients with extremes of body mass index for purposes of drug dosing, the eGFR should be multiplied by the estimated BMI. [facility] ELECTROLYTES Glucose Lvl 77 mg/dL 70 - 99 01/05/2015 [facility] ELECTROLYTES Bili Total 0.2 mg/dL 0.2 - 1.3 01/05/2015 [facility] ELECTROLYTES AST 6 unit/L 0 - 37 01/05/2015 [facility] ELECTROLYTES Alk Phos 47 unit/L 39 - 136 01/05/2015 [facility] ELECTROLYTES CO2 28 meq/L 24 - 32 01/05/2015 [facility] ELECTROLYTES Potassium Lvl 4.5 meq/L 3.5 - 5.1 01/05/2015 [facility] ELECTROLYTES Chloride Lvl 101 meq/L 95 - 109 01/05/2015 [facility] ELECTROLYTES Sodium Lvl 135 meq/L 135 - 145 01/05/2015 [facility] ELECTROLYTES BUN 9 mg/dL 7 - 22 01/05/2015 [facility] ELECTROLYTES Creatinine Lvl 0.7 mg/dL 0.5 - 1.4 01/05/2015 [facility] ELECTROLYTES ALT 14 unit/L 0 - 65 01/05/2015 [facility] ELECTROLYTES Total Protein 6.9 g/dL 6.4 - 8.4 01/05/2015 [facility] ELECTROLYTES Albumin Lvl 3.3 g/dL 3.5 - 5.0 01/05/2015 [facility] ELECTROLYTES Calcium Lvl 8.5 mg/dL 8.5 - 10.5 01/05/2015 [facility] HEMATOLOGY Hct 35.4 % 36.0 - 48.0 01/05/2015 [facility] HEMATOLOGY MCHC 32.7 g/dL 32.0 - 36.0 01/05/2015 [facility] HEMATOLOGY RDW 14.8 % 11.5 - 14.5 01/05/2015 [facility] HEMATOLOGY MCV 101.5 fL 80.0 - 98.0 01/05/2015 [facility] HEMATOLOGY MCH 33.2 pg 27.0 - 31.0 01/05/2015 [facility] HEMATOLOGY RBC 3.49 M/CMM 4.20 - 5.40 01/05/2015 [facility] HEMATOLOGY Hgb 11.6 g/dL 12.0 - 16.0 01/05/2015 [facility] HEMATOLOGY WBC 3.7 K/CMM 3.7 - 10.4 01/05/2015 [facility] HEMATOLOGY MPV 7.9 fL 7.4 - 10.4 01/05/2015 [facility] HEMATOLOGY Platelet 189 K/CMM 133 - 450 01/05/2015 [facility] HEMATOLOGY INR 0.88 0.85 - 1.17 01/05/2015 [facility] HEMATOLOGY PT 12.2 s 12.0 - 14.7 01/05/2015 [facility] HEMATOLOGY PTT 30.6 s 22.9 - 35.8 01/05/2015 [facility] HEMATOLOGY Macrocyte 1+ *ABN* (01/05/15 1:50 PM) None Seen 01/05/2015 [facility] HEMATOLOGY Segs 46.5 % 45.0 - 75.0 01/05/2015 [facility] HEMATOLOGY Basophils 0.3 % 0.0 - 1.0 01/05/2015 [facility] HEMATOLOGY Monocytes 12.4 % 2.0 - 12.0 01/05/2015 [facility] HEMATOLOGY Eosinophils 0.5 % 0.0 - 4.0 01/05/2015 [facility] HEMATOLOGY Lymphocytes 40.3 % 20.0 - 40.0 01/05/2015 [facility] HEMATOLOGY Eosinophils # 0.0 K/CMM 0.0 - 0.5 01/05/2015 [facility] HEMATOLOGY Basophils # 0.0 K/CMM 0.0 - 0.2 01/05/2015 [facility] HEMATOLOGY Monocytes # 0.5 K/CMM 0.0 - 0.8 01/05/2015 [facility] HEMATOLOGY Segs-Bands # 1.7 K/CMM 1.5 - 8.1 01/05/2015 [facility] HEMATOLOGY Lymphocytes # 1.5 K/CMM 1.0 - 5.5 01/05/2015 [facility] URINE AND STOOL UA Urobilinogen <=1.0 mg/dL 0.1 - 1.0 01/05/2015 [facility] URINE AND STOOL UA Mucus Few /LPF None Seen /LPF 01/05/2015 [facility] URINE AND STOOL UA RBC 3 /HPF 0 - 2 01/05/2015 [facility] URINE AND STOOL UA Blood Trace *ABN* (01/05/15 1:50 PM) Negative 01/05/2015 [facility] URINE AND STOOL UA Sq Epi Few /LPF Few /LPF 01/05/2015 [facility] URINE AND STOOL UA WBC 2 /HPF 0 - 5 01/05/2015 [facility] URINE AND STOOL UA Nitrite Negative (01/05/15 1:50 PM) Negative 01/05/2015 [facility] URINE AND STOOL UA Leuk Est Small *ABN* (01/05/15 1:50 PM) Negative 01/05/2015 [facility] URINE AND STOOL UA Bili Negative *NA* (01/05/15 1:50 PM) Negative 01/05/2015 [facility] URINE AND STOOL UA Ketones Negative mg/dL Negative mg/dL 01/05/2015 [facility] URINE AND STOOL UA Color Yellow *NA* (01/05/15 1:50 PM) Yellow 01/05/2015 [facility] URINE AND STOOL UA Turbidity Clear (01/05/15 1:50 PM) Clear 01/05/2015 [facility] URINE AND STOOL UA Spec Grav 1.014 <=1.030 01/05/2015 [facility] URINE AND STOOL UA pH 6.5 5.0 - 8.0 01/05/2015 [facility] URINE AND STOOL UA Protein Negative mg/dL Negative mg/dL 01/05/2015 [facility] URINE AND STOOL UA Glucose 30 mg/dL Negative mg/dL 01/05/2015 [facility] Chest 2 views DX Chest 2 views DX NAME: ANDRES CARROLL : 1945 SEX: F Ordering Physician: Melissa Jack Chest 2 views : Jan 05, 2015 02:33:00 PM. CLINICAL INDICATION: CERVICAL STENOSIS. Comparison Examination: None. FINDINGS: PA and lateral view(s) of the chest performed. Lungs are clear. No pleural effusion or pneumothorax. Mild prominence of pulmonary vasculature, without overt pulmonary edema. Cardiomediastinal silhouette is within normal limits. Status post cholecystectomy. There are no clinically significant osseous abnormalities noted. IMPRESSION: 1. No acute cardiopulmonary abnormality. SL: 24 01/05/2015 - - Read by: Raheem Aragon MD Dictated Date/time: 01/05/15 14:35 Electronically Signed by: Raheem Aragon MD 01/05/15 14:38 FINAL REPORT [facility] Spine cervical comp w obl-flx/ext DX Spine cervical comp w obl-flx/ext DX Name: ANDRES CARROLL : 1945 SEX: F Ordering Physician: Ayaz Ruggiero Spine cerv comp w/obl-flx/ext : Nov 17, 2014 03:20:00 PM. CLINICAL INDICATION: 723.4 Brachial Neuritis or Radiculitis Nos, 756.12 Spondylolisthesis, Congenital, 724.4 Thoracic or Lumbosacral Neuritis or Radiculitis, Unspecified Comparison Examination: None Cervical lordosis is straightened. Flexion is adequate, but extension is limited. There is no evidence for dynamic instability. Vertebral body heights are adequately maintained. Moderate C5-C6 and marked C6-C7 loss of disc height is noted. Moderate anterior and mild posterior spondylosis is present at C6-C7. Right C2-C3 and left C3-C4 facet arthrosis noted. Mild left uncinate spur and osseous foraminal stenosis are suspected at C5-C6. The atlantodens interval is normal. There is no evidence for prevertebral soft tissue swelling, fracture, spondylolisthesis or destructive lesion. IMPRESSION: Cervical lordosis is straightened. Extension is quite limited. There is no evidence for dynamic instability. At C5-C6, mild loss of disc height is present with mild posterior spondylosis. Left uncinate spur and osseous foraminal stenoses are suspected. At C6-C7, there is moderate to marked loss of disc height with mild posterior spondylosis. Right C2-C3 and left C3-C4 facet arthrosis is suspected SL: 23 11/17/2014 - - Read by: Mary Walden MD Dictated Date/time: 11/17/14 15:33 Electronically Signed by: Mary Walden MD 11/17/14 15:36 FINAL REPORT [facility] Spine cervical wo contrast MRI Spine cervical wo contrast MRI Name: ANDRES CARROLL : 1945 SEX: F Ordering Physician: Melissa Jack Spine cervical wo contrast MRI : Nov 09, 2014 02:33:00 PM. CLINICAL INDICATION: 723.1 Cervicalgia 723.4 Brachial Neuritis or Radiculitis Nos Comparison Examination: None COMMENT: MRI of the cervical spine was performed without administration of contrast utilizing spin echo imaging in the sagittal and axial planes with sagittal STIR and axial gradient-echo imaging. There is normal anatomic alignment without trauma or bony destruction. The para vertebral soft tissues are normal. The cervicomedullary junction and intervertebral disks are intact through C4-C5 demonstrate minor early changes of spondylosis and degenerative disc desiccation with only minimal foraminal encroachment on the left at the C3-C4. Spondylosis at C5-C6 with diffuse disc bulge and uncovertebral hypertrophy results in mild early canal and foraminal stenosis symmetric bilaterally. C6-C7 spondylotic uncovertebral hypertrophy results only in mild to moderate bilateral foraminal stenosis. Reactive discogenic bone marrow edema noted at the C6-C7 level and to a lesser degree C2-C3. C7-T1 and upper thoracic levels are intact.. The cervical spinal cord is normal. . CONCLUSION: Cervical spondylosis with mild to moderate bilateral symmetric foraminal stenosis at C5-C6 and C6-C7 with some minor early Canal narrowing at C5-C6. Otherwise spondylotic changes result in minor encroachment without tight stenosis or nerve root compromise SL: 24 11/09/2014 - - Read by: Maxi Mello MD Dictated Date/time: 11/09/14 15:11 Electronically Signed by: Maxi Mello MD 11/09/14 15:19 FINAL REPORT [facility] Spine lumbar wo contrast MRI Spine lumbar wo contrast MRI Name: ANDRES CARROLL : 1945 SEX: F Ordering Physician: Melissa Jack Spine lumbar wo contrast MRI : Nov 09, 2014 02:33:00 PM. CLINICAL INDICATION: 722.1 Displacement of Thoracic or Lumbar Intervertebral Disc without Myelopathy 724.2 LUMBAGO Comparison Examination: Conventional flexion-extension radiographs and 92,[id number] COMMENT: MRI of the lumbar spine was performed without intravenous administration of contrast utilizing spin echo imaging in the sagittal and axial planes with sagittal STIR imaging. There is grade 1 L5-S1 spondylolisthesis on the basis of facet arthropathy of anomalous facets without evidence for spondylolyses but otherwise normal anatomic alignment without trauma or bony destruction. Otherwise normal anatomic alignment without trauma or bony abnormality. Possible early osteopenia.. The para vertebral soft tissues are normal. . The thoracolumbar junction and intervertebral disks through L4-L5 demonstrate no abnormalities other than some early spondylotic facet arthropathy minimal at the thoracolumbar junction through L2-L3. L3-L4 and L4-L5 demonstrate bulky spondylotic facet arthropathy with only minor lateral recess encroachment. 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 Advanced L5-S1 degenerative disc desiccation. . CONCLUSION: 1. Thoracolumbar junction through L4-L5 demonstrate only early facet arthropathy at the lower levels with minor lateral recess encroachment. 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 SL: 24 11/09/2014 - - Read by: Maxi Mello MD Dictated Date/time: 11/09/14 14:42 Electronically Signed by: Maxi Mello MD 11/09/14 14:48 FINAL REPORT [facility] Vital Signs Vital Sign Value Date Comments Source Height 160.02 cm 04/29/2017 [facility] BMI Calculated 31.49 04/29/2017 [facility] Weight 80.625 04/29/2017 [facility] Systolic (mm Hg) 103 04/29/2017 [facility] Diastolic (mm Hg) 64 04/29/2017 [facility] Heart Rate 79 04/29/2017 [facility] BMI Calculated 29.18 03/11/2017 [facility] Weight 79.545 03/11/2017 [facility] Heart Rate 84 03/11/2017 [facility] Height 165.1 cm 03/11/2017 [facility] Systolic (mm Hg) 116 03/11/2017 [facility] Diastolic (mm Hg) 69 03/11/2017 [facility] Heart Rate 82 01/27/2017 [facility] Respitory Rate 18 01/27/2017 [facility] Temperature Oral (F) 98.3 F 01/27/2017 [facility] Systolic (mm Hg) 119 01/27/2017 [facility] Diastolic (mm Hg) 75 01/27/2017 [facility] Temperature Oral (F) 98.3 F 01/27/2017 [facility] Respitory Rate 18 01/27/2017 [facility] Heart Rate 80 01/27/2017 [facility] Systolic (mm Hg) 99 01/27/2017 [facility] Diastolic (mm Hg) 62 01/27/2017 [facility] Systolic (mm Hg) 97 01/27/2017 [facility] Diastolic (mm Hg) 61 01/27/2017 [facility] Respitory Rate 18 01/27/2017 [facility] Heart Rate 94 01/27/2017 [facility] Temperature Oral (F) 98.8 F 01/27/2017 [facility] Weight 84.091 01/25/2017 [facility] BMI Calculated 32.85 01/25/2017 [facility] Height 160 cm 01/25/2017 [facility] Weight 84.091 01/17/2017 [facility] BMI Calculated 32.84 01/17/2017 [facility] Height 160.02 cm 01/17/2017 [facility] Heart Rate 72 12/05/2015 [facility] Temperature Oral (F) 98.2 F 12/05/2015 [facility] Systolic (mm Hg) 132 12/05/2015 [facility] Diastolic (mm Hg) 66 12/05/2015 [facility] Respitory Rate 18 12/05/2015 [facility] Systolic (mm Hg) 116 12/05/2015 [facility] Diastolic (mm Hg) 67 12/05/2015 [facility] Respitory Rate 18 12/05/2015 [facility] Heart Rate 72 12/05/2015 [facility] Temperature Oral (F) 98.1 F 12/05/2015 [facility] Systolic (mm Hg) 124 12/05/2015 [facility] Diastolic (mm Hg) 52 12/05/2015 [facility] Heart Rate 73 12/05/2015 [facility] Respitory Rate 18 12/05/2015 [facility] Temperature Oral (F) 98.1 F 12/05/2015 [facility] Weight 72.074 12/01/2015 [facility] BMI Calculated 28.15 12/01/2015 [facility] Height 160.02 cm 12/01/2015 [facility] Weight 76.818 11/30/2015 [facility] BMI Calculated 30 11/30/2015 [facility] Height 160.02 cm 11/30/2015 [facility] Weight 72.545 03/22/2015 [facility] BMI Calculated 28.33 03/22/2015 [facility] Height 160.02 cm 03/22/2015 [facility] Systolic (mm Hg) 156 01/14/2015 [facility] Diastolic (mm Hg) 78 01/14/2015 [facility] Respitory Rate 18 01/14/2015 [facility] Heart Rate 90 01/14/2015 [facility] Temperature Oral (F) 98.7 F 01/14/2015 [facility] Systolic (mm Hg) 155 01/14/2015 [facility] Diastolic (mm Hg) 81 01/14/2015 [facility] Respitory Rate 16 01/14/2015 [facility] Temperature Oral (F) 97.6 F 01/14/2015 [facility] Heart Rate 93 01/14/2015 [facility] Systolic (mm Hg) 135 01/14/2015 [facility] Diastolic (mm Hg) 71 01/14/2015 [facility] Heart Rate 88 01/14/2015 [facility] Temperature Oral (F) 98 F 01/14/2015 [facility] Respitory Rate 18 01/14/2015 [facility] Weight 68.182 01/05/2015 [facility] BMI Calculated 26.63 01/05/2015 [facility] Height 160.02 cm 01/05/2015 [facility] Encounters Location Location Details Encounter Type Encounter Number Reason For Visit Attending Provider ADM Date DC Date Status Source [facility] [id number] Melissa Al Shamy 12/21/2013 12/22/2013 [facility] [id number] Melissa Al Shamy 11/09/2014 11/10/2014 [facility] [id number] Ayaz Ruggiero 11/17/2014 11/18/2014 [facility] [id number] MEILSSA AL- SHAMY 01/13/2015 [facility] Inpatient [id number] Melissa Al Shamy 01/13/2015 01/14/2015 [facility] Outpatient [id number] LORI CITRO 01/24/2015 [facility] Outpatient [id number] LORI CITRO 01/24/2015 [facility] Outpatient [facility] [id number] Melissa Al Shamy 01/24/2015 01/25/2015 [facility] Out[facility] [id number] MELISSA AL- SHAMY 03/14/2015 [facility] [id number] Melissa Al Shamy 03/14/2015 [id number] Al Shamy 03/22/2015 03/23/2015 [facility] Outpatient [id number] MELISSA AL- SHAMY 05/23/2015 [facility] Outpatient [id number] MELISSA AL- SHAMY 05/30/2015 [facility] Outpatient [id number] Melissa Al Shamy 05/30/2015 05/31/2015 [facility] Outpatient [id number] MELISSA AL- SHAMY 08/30/2015 [facility] Outpatient [id number] LORI CITRO 09/14/2015 [facility] Outpatient [id number] MELISSA AL- SHAMY 10/06/2015 [facility] Outpatient [id number] LORI CITRO 10/24/2015 [facility] Inpatient [id number] Destiny Johnsonria 11/30/2015 12/05/2015 [facility] [id number] LORI CITRO 12/21/2015 [facility] Outpatient [facility] [id number] Melissa Al Shamy 12/21/2015 12/22/2015 [facility] [id number] MELISSA AL- SHAMY 03/05/2016 [facility] Out[facility] [id number] Melissa Al Shamy 03/05/2016 03/06/2016 [facility] Outpatient [facility] [id number] Melissa Al Shamy 03/16/2016 03/17/2016 [facility] Outpatient [id number] MELISSA AL- SHAMY 10/15/2016 [facility] Outpatient [id number] MELISSA AL- SHAMY 12/10/2016 [facility] Outpatient [id number] MELISSA AL- SHAMY 12/24/2016 [facility] Out[facility] [id number] Melissa Al Shamy 12/31/2016 01/01/2017 [facility] Out[facility] [id number] MELISSA AL- SHAMY 01/07/2017 [facility] Outpatient [id number] MELISSA AL- SHAMY 01/24/2017 [facility] Inpatient [id number] Melissa Al Shamy 01/24/2017 01/28/2017 [facility] [id number] DAREN CHOU 02/06/2017 [facility] Outpatient [facility] [id number] Melissa Al Shamy 02/06/2017 02/07/2017 [facility] Outpatient [id number] MELISSA AL- SHAMY 03/11/2017 [facility] Outpatient [facility] [id number] Melissa Al Shamy 03/11/2017 03/12/2017 [facility] [id number] Melissa Al Shamy 03/11/2017 03/12/2017 [facility] [id number] MELISSA AL- SHAMY 04/29/2017 [facility] Out[facility] [id number] Melissa Hogue Shamy 04/29/2017 04/30/2017 [facility] [id number] Melissa Hogue Shamy 04/29/2017 04/30/2017 [facility] Phone Message [id number] 09/04/2017 09/06/2017 [facility] Message [id number] 09/17/2017 09/19/2017 [facility] Procedures Procedure Code Date Perfomer Comments Source Cardiac pacemaker 04/15/2016 [facility] Cardiac pacemaker 04/15/2016 [facility] Cardiac pacemaker 04/15/2016 [facility] Procedure on back [id number] 04/15/2015 [facility] Procedure on back [id number] 04/15/2015 [facility] Procedure on back [id number] 04/15/2015 [facility] Procedure on neck [id number] 04/15/2014 [facility] Procedure on neck [id number] 04/15/2014 [facility] Procedure on neck [id number] 04/15/2014 [facility] Cholecystectomy [id number] 04/15/2004 [facility] Cholecystectomy [id number] 04/15/2004 [facility] Cholecystectomy [id number] 04/15/2004 [facility] Hysterectomy [id number] 04/15/1972 [facility] Hysterectomy [id number] 04/15/1972 [facility] Hysterectomy [id number] 04/15/1972 [facility]
--- OUTSIDE RECORDS SUMMARY | 2018-07-24 14:54 | XMS REPORT | Summary of Care ---
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 mEq/L] 27 mEq/L (01/27/17 4:18 AM) 27 mEq/L (01/26/17 3:33 AM) 27 mEq/L (01/25/17 2:34 PM) CO2 [24-32 mEq/L] 10.9 mEq/L (01/27/17 4:18 AM) 9.0 mEq/L *LOW* (01/26/17 3:33 AM) 8.8 mEq/L *LOW* (01/25/17 2:34 PM) AGAP [10.0-20.0 mEq/L] CHEM PANEL 1 2 3 Most recent to oldest [Reference Range]: 0.44 mg/dL *LOW* (01/27/17 4:18 AM) 0.43 mg/dL *LOW* (01/26/17 3:33 AM) 0.63 mg/dL (01/25/17 2:34 PM) Creatinine Lvl [0.50-1.40 mg/dL] 102 mL/min/1.73m2 1 *NA* (01/27/17 4:18 AM) 103 mL/min/1.73m2 2 *NA* (01/26/17 3:33 AM) 90 mL/min/1.73m2 3 *NA* (01/25/17 2:34 PM) eGFR 6 mg/dL *LOW* (01/27/17 4:18 AM) 5 mg/dL *LOW* (01/26/17 3:33 AM) 9 mg/dL (01/25/17 2:34 PM) BUN [7-22 mg/dL] 14 (01/25/17 2:34 PM) B/C Ratio [6-25] 109 mg/dL *HI* (01/27/17 4:18 AM) 114 mg/dL *HI* (01/26/17 3:33 AM) 149 mg/dL *HI* (01/25/17 2:34 PM) Glucose Lvl [70-99 mg/dL] 6.4 g/dL (01/25/17 2:34 PM) Total Protein [6.4-8.4 g/dL] 3.0 g/dL *LOW* (01/25/17 2:34 PM) Albumin Lvl [3.5-5.0 g/dL] 3.4 g/dL (01/25/17 2:34 PM) Globulin [2.7-4.2 g/dL] 0.9 (01/25/17 2:34 PM) A/G Ratio [0.7-1.6] 8.3 mg/dL *LOW* (01/27/17 4:18 AM) 7.7 mg/dL *LOW* (01/26/17 3:33 AM) 7.9 mg/dL *LOW* (01/25/17 2:34 PM) Calcium Lvl [8.5-10.5 mg/dL] 29 unit/L (01/25/17 2:34 PM) ALT [0-65 unit/L] 31 unit/L (01/25/17 2:34 PM) AST [0-37 unit/L] 54 unit/L (01/25/17 2:34 PM) Alk Phos [39-136 unit/L] 0.4 mg/dL (01/25/17 2:34 PM) Bili Total [0.2-1.3 mg/dL] 1Result Comment: The eGFR is calculated using the [...] from the National Kidney Disease Education Program ( NKDEP) which additionally recommends that when the eGFR is used in patients with extremes of body mass index for purposes of drug dosing, the eGFR should be mul tiplied by the estimated BMI. 2Result Comment: The eGFR is calculated using the [...] from the National Kidney Disease Education Program ( NKDEP) which additionally recommends that when the eGFR is used in patients with extremes of body mass index for purposes of drug dosing, the eGFR should be mul tiplied by the estimated BMI. 3Result Comment: The eGFR is calculated using the [...] from the National Kidney Disease Education Program ( NKDEP) which additionally recommends that when the eGFR is used in patients with extremes of body mass index for purposes of drug dosing, the eGFR should be mul tiplied by the estimated BMI. URINE AND STOOL 1 2 3 Most recent to oldest [Reference Range]: Clear (01/17/17 4:15 PM) UA Turbidity [Clear] Yellow *NA* (01/17/17 4:15 PM) UA Color [Yellow] 6.0 (01/17/17 4:15 PM) UA pH [5.0-8.0] 1.008 (01/17/17 4:15 PM) UA Spec Grav [<=1.030] Negative mg/dL *NA* (01/17/17 4:15 PM) UA Glucose [Negative mg/dL] Negative (01/17/17 4:15 PM) UA Blood [Negative] Negative mg/dL *NA* (01/17/17 4:15 PM) UA Ketones [Negative mg/dL] Negative mg/dL (01/17/17 4:15 PM) UA Protein [Negative mg/dL] <=1.0 mg/dL *NA* (01/17/17 4:15 PM) UA Urobilinogen [0.1-1.0 mg/dL] Negative *NA* (01/17/17 4:15 PM) UA Bili [Negative] Negative (01/17/17 4:15 PM) UA Leuk Est [Negative] Negative (01/17/17 4:15 PM) UA Nitrite [Negative] 2 /HPF (01/17/17 4:15 PM) UA RBC [0-2 /HPF] Moderate /LPF *ABN* (01/17/17 4:15 PM) UA Sq Epi [Few /LPF] Few /LPF *NA* (01/17/17 4:15 PM) UA Mucus [None Seen /LPF] HEMATOLOGY 1 2 3 Most recent to oldest [Reference Range]: 2.5 K/CMM *LOW* (01/27/17 4:18 AM) 4.2 K/CMM (01/26/17 3:33 AM) 5.1 K/CMM (01/25/17 2:34 PM) WBC [3.7-10.4 K/CMM] 2.74 M/CMM *LOW* (01/27/17 4:18 AM) 2.73 M/CMM *LOW* (01/26/17 3:33 AM) 3.05 M/CMM *LOW* (01/25/17 2:34 PM) RBC [4.20-5.40 M/CMM] 9.4 g/dL *LOW* (01/27/17 4:18 AM) 9.4 g/dL *LOW* (01/26/17 3:33 AM) 10.4 g/dL *LOW* (01/25/17 2:34 PM) Hgb [12.0-16.0 g/dL] 27.8 % *LOW* (01/27/17 4:18 AM) 27.6 % *LOW* (01/26/17 3:33 AM) 31.1 % *LOW* (01/25/17 2:34 PM) Hct [36.0-48.0 %] 101.6 fL *HI* (01/27/17 4:18 AM) 101.0 fL *HI* (01/26/17 3:33 AM) 101.7 fL *HI* (01/25/17 2:34 PM) MCV [80.0-98.0 fL] 34.5 pg *HI* (01/27/17 4:18 AM) 34.4 pg *HI* (01/26/17 3:33 AM) 34.1 pg *HI* (01/25/17 2:34 PM) MCH [27.0-31.0 pg] 33.9 g/dL (01/27/17 4:18 AM) 34.1 g/dL (01/26/17 3:33 AM) 33.5 g/dL (01/25/17 2:34 PM) MCHC [32.0-36.0 g/dL] 13.6 % (01/27/17 4:18 AM) 13.4 % (01/26/17 3:33 AM) 13.4 % (01/25/17 2:34 PM) RDW [11.5-14.5 %] 132 K/CMM *LOW* (01/27/17 4:18 AM) 150 K/CMM (01/26/17 3:33 AM) 178 K/CMM (01/25/17 2:34 PM) Platelet [133-450 K/CMM] 8.1 fL (01/27/17 4:18 AM) 8.0 fL (01/26/17 3:33 AM) 7.9 fL (01/25/17 2:34 PM) MPV [7.4-10.4 fL] 61.0 % (01/27/17 4:18 AM) 50.7 % (01/26/17 3:33 AM) 62.5 % (01/25/17 2:34 PM) Segs [45.0-75.0 %] 20.5 % (01/27/17 4:18 AM) 37.5 % (01/26/17 3:33 AM) 27.2 % (01/25/17 2:34 PM) Lymphocytes [20.0-40.0 %] 15.2 % *HI* (01/27/17 4:18 AM) 10.6 % (01/26/17 3:33 AM) 10.0 % (01/25/17 2:34 PM) Monocytes [2.0-12.0 %] 2.6 % (01/27/17 4:18 AM) 0.9 % (01/26/17 3:33 AM) 0.1 % (01/25/17 2:34 PM) Eosinophils [0.0-4.0 %] 0.7 % (01/27/17 4:18 AM) 0.3 % (01/26/17 3:33 AM) 0.2 % (01/25/17 2:34 PM) Basophils [0.0-1.0 %] 1.5 K/CMM (01/27/17 4:18 AM) 2.1 K/CMM (01/26/17 3:33 AM) 3.2 K/CMM (01/25/17 2:34 PM) Segs-Bands # [1.5-8.1 K/CMM] 0.5 K/CMM *LOW* (01/27/17 4:18 AM) 1.6 K/CMM (01/26/17 3:33 AM) 1.4 K/CMM (01/25/17 2:34 PM) Lymphocytes # [1.0-5.5 K/CMM] 0.4 K/CMM (01/27/17 4:18 AM) 0.4 K/CMM (01/26/17 3:33 AM) 0.5 K/CMM (01/25/17 2:34 PM) Monocytes # [0.0-0.8 K/CMM] 0.1 K/CMM (01/27/17 4:18 AM) Eosinophils # [0.0-0.5 K/CMM] 1+ *ABN* (01/27/17 4:18 AM) 1+ *ABN* (01/25/17 4:20 AM) Macrocyte [None Seen] 12.9 seconds (01/17/17 4:15 PM) PT [12.0-14.7 seconds] 0.95 (01/17/17 4:15 PM) INR [0.85-1.17] 28.1 seconds (01/17/17 4:15 PM) PTT [22.9-35.8 seconds] Immunizations Given and Recorded Vaccine Date Status Refusal Reason influenza virus vaccine, inactivated 01/14/15 Given Not Given Vaccine Date Status Refusal Reason influenza virus vaccine, inactivated 01/14/15 Not Given Patient Refuses Procedures Procedure Date Related Diagnosis Body Site Cardiac pacemaker 04/2016 Procedure on back 2015 Procedure on neck 2014 Cholecystectomy 2005 Hysterectomy 1973 Social History Social History Type Response Substance Abuse Use: None. Alcohol Never Smoking Status Former smoker; Ready to change: No; Concerns about tobacco use in household: No; Exposure to Tobacco Smoke None; Exposure to Tobacco Smoke past smoker; Cigarette Smoking Last 365 Days No; Reg Smoking Cessation Counseling No Assessment and Plan Extracted from: Title: Discharge Summary Author: Jackie James Date: 01/27/17 Discharge Information DSUMM (DISCHARGE SUMMARY) ATTENDING PHYSICIAN: Dr. Herminio Jack DATE OF ADMISSION: 01/24/17 DATE OF PROCEDURE: 01/24/17 DATE OF DISCHARGE: 01/27/17 ADMITTING DIAGNOSES: 1. Lumbar stenosis 2. Lumbar radiculopathy DISCHARGE DIAGNOSES: Same as above PRIMARY PROCEDURE 1. L5-S1 PLIF DISPOSITION: The patient was discharged home in stable condition. HISTORY OF PRESENT ILLNESS AND HOSPITAL COURSE: This patient had neurosurgical evaluation for the above-stated diagnoses. Despite conservative management, the patient s symptoms continued, therefore, surgery was medically necessary and recommend ed. Please see clinic notes for complete details. The patient was admitted to the hospital on the above-stated date and underwent the above-stated procedure without complications. Please see operative notes for complete details. Post-operative, the patient s neurological exam remained stable as document in the post-op notes and daily progress notes. The incision remained clean, dry, and intact. The patient has done well and has progressed as expected with pre-operative symptoms improving. The patient has been out of bed and has been determined to be safe for discharge, and pain is adequately controlled with oral analgesics and muscle relaxers. DISCHARGE INSTRUCTIONS: 1. The patient is to follow up with Dr. Herminio Jack in 2 weeks for a wound check. 2. The patient is not to lift greater than 10 pounds. 3. Patient is not to do any activity greater than walking. 4. No excessive bending or twisting of the spine. 5. Patient may shower, wash incision with mild soap and water then pat dry. DISCHARGE MEDICATIONS: --Roscoe 10/325 mg 1 PO Q6 hours PRN. pain, #80, with no additional refills. --Robaxin 750mg PO QID # 80, with no additional refills. DICTATED BY: Jackie James PA-C on behalf of Dr. Herminio Jack. Extracted from: Title: Clinical Document Author: Herminio Jack MD Date: 01/24/17 Patient's name: Nikki Birch Date of procedure:01/24/2017 Pre Op diagnosis: L5-S1 Lumbar stenosis [id number] L5 Spondylolysis /pars defect Lumbar stenosis Post op Diagnosis: same Procedure: L5 laminectomy L5-S1 pedicle instrumentation L5-S1 posterolateral fusion L5-S1 lumbar interbody fusion Application of interbody Mechanical device at L5-S1 Stereotactic computer assisted navigation Use of intraoperative Fluoroscopy Surgeon: Herminio Jack M.D Co-surgeon: Nurse Research surgeon: Jacob VITALE EBL: 250 ml return of 140 Electrophysiologic Monitoring: SSEP and Lower nerves motor conductions Fluids and Urine outpt: Pls see anesthesia records Complication:none Disposition : Floor Intra operative findings: spondylolisthesis at L5-S1 Severe lumbar stenosis at L5-S1 Lumbar stenosis Bilateral degenerative hypertrohphied facets at L5-S1 Specimen: none Implants: L5 6.5x45 mm screws S1 6.5x45mm June 3 Screws 6.0x45 mm Rods 9mm straight cage x1 Indication: L5-S1 spondylolisthesis Lumbar stenosis at L5-S1 Lumbar radiculoplathy Low back pain Procedure In detail: Pt. was brought in to the Operating room. A time out was done after which she was intubated by the anesthesia team without any complications. A Vickers was placed. We flipped her prone on the Finn table . Neuro-monitoring cables were connected and all pressure points were padded. A c-arm was brought in to localize the incision, We then infiltrated with atbcs and draped in the nl sterile Skin was opened with a blade and then used the bovie for hemostasis. We then identified the fascia and continued with sub-periosteal dissection on both sides until we identified the transverse processes bilaterally from L5 to S1. We made sure we kept the joints intact at L4-5 .We then confirmed our location with the C arm . At that point, we brought the O-arm and under navigation , we co-registered the parameters to identify the entry points of our screws . The patient had pretty advanced osteoprosis and we used cement augmentation to strengthen the screws and allow us to get better purchase. Using the stealth navigation as well as C arm fluoroscopy, we successfully drilled and placed pedicle screws L5 to S1 bilaterally. We spinned the O-arm again to confirm our screw placement. We then used the leksell, multiple kerrison punches as well as the 3 mm nichelle drill to do our laminectomy of L 5. We decompressed the thecal sac laterally until we identified the nerve roots of L 5 and S1 bilaterally . At that point, we placed a temporary mario alberto on the left L5-S1 screws and distracted. This allowed us to get exposure to the right L5-S1 disc space. we used the 11 blade to open the disc and we did our discectomy at L5-S1. We preseved both endplates and were able to remove the disc all the way to the opposite side. we then placed bone material as well as a 9mm straight cage in the disc space on the right side of the thecal sac. we then compressed that disc space. We confirmed our adequate location of all the hardware by the C- arm and the continuity of the nerves by monitoring. We then drilled the transverse processes at L5 to S1 and placed cancellous bone fragments to promote arthrodesis. We placed our curved rods. We irrigated very well with atbc soaked irrigation. A 7-flat PARAG drain was placed in the subfacial space. We closed the fasica with 0-vicryl, the subcutaneous tissue with 2-0 vicryl and deep dermis with 3-0 stitches. We closed the skin with 4-0 moncryl as well as dermabond. Dressing was placed and the pt flipped back to supine position and extubated without any complication Addendum Ms James was present throughtout the case. She assisted with opening as well as closing by Al part of the procedure. She also assisted with the decompression and laminectomy part of Shamy, the surgery as well as with retracting the thecal sac for preperation and arthrodesis of Herminio STREETER the L5-S1 disk on 01/25/2017 14:12
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
--- OUTSIDE RECORDS SUMMARY | 2018-07-24 14:54 | XMS REPORT | Summary of Care ---
Author Author [facility] Outpatient Imaging [facility] [place] Address Unknown Phone Unavailable Encounter HQ Domenic(FIN) [id number] Date(s): 04/29/17 - 04/29/17 [facility] [place] [address] [place], [place] [address]- Encounter Diagnosis Radiculopathy, lumbar region (Final) - 05/02/17 Atherosclerosis of aorta (Final) - Arthrodesis status (Final) - Discharge Disposition: Home or Self Care Attending Physician: Herminio Jack MD Vital Signs No data available for this [...] Originally documented as PAXIL. 5Data migrated from [employer] on 12/06/14. Originally documented as RISPERDAL. 6Data migrated from [employer] on 12/06/14. Originally documented as ABILIFY. Medications [...] neck 2014 Completed Cholecystectomy 2004 Completed Hysterectomy 1972 Completed Social History Social History Type Response [...]
--- OUTSIDE RECORDS SUMMARY | 2018-07-24 14:54 | XMS REPORT | Summary of Care ---
Author Author [facility] Organization [facility] Address Unknown Phone Unavailable Encounter JAYDA Sheth(REAGAN) [id number] Date(s): 04/29/17 - 04/29/17 [facility] [address], [address] [place], [place] [address] [phone] Discharge Disposition: Home or Self Care Attending [...] obesity(Confirmed) Spondylisthesis(Conf Active irmed) 1Data migrated from [employer] on 12/07/14. 2Data migrated from [employer] on 12/07/14. Allergies, Adverse Reactions, Alerts Substance [...]
--- OUTSIDE RECORDS SUMMARY | 2018-07-24 14:54 | XMS REPORT | Summary of Care ---
Author Author [facility] Outpatient Imaging [facility] [place] Address Unknown Phone Unavailable Encounter JAYDA Sheth(FIN) [id number] Date(s): 03/11/17 - 03/11/17 [facility] Outpatient [facility] [place] [address] [place] [address]- Discharge Disposition: Home or Self Care Attending [...] Originally documented as RISPERDAL. 6Data migrated from [employer] on 12/06/14. Originally documented as ABILIFY. Medications [...] Smoking Cessation Counseling No Assessment and Plan No data available for this section
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
--- OUTSIDE RECORDS SUMMARY | 2018-07-24 14:54 | XMS REPORT | Summary of Care ---
Author Author [facility] Outpatient Imaging [facility] [place] Address Unknown Phone Unavailable Encounter JAYDA Sheth(FIN) [id number] Date(s): 02/06/17 - 02/06/17 [facility] Outpatient Imaging [place] [address] [place], [place] [address]- Discharge Disposition: Home or Self Care Attending [...] Originally documented as EFFEXOR. 6Data migrated from [employer] on 12/06/14. Originally documented as GEODON. Medications [...]
--- OUTSIDE RECORDS SUMMARY | 2018-07-24 14:54 | XMS REPORT | Summary of Care ---
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 % 46.5 % *HI* (01/05/15 1:50 PM) (01/14/15 2:09 AM) Lymphocytes 12.3 % 40.3 % [20.0-40.0 %] *LOW* *HI* (01/14/15 2:09 AM) (01/05/15 1:50 PM) Monocytes [2.0-12.0 4.1 % 12.4 % %] (01/14/15 2:09 AM) *HI* (01/05/15 1:50 PM) Eosinophils [0.0-4.0 0.0 % 0.5 % %] (01/14/15 2:09 AM) (01/05/15 1:50 PM) Basophils [0.0-1.0 0.2 % 0.3 % %] (01/14/15 2:09 AM) (01/05/15 1:50 PM) Segs-Bands # 4.6 K/CMM 1.7 K/CMM [1.5-8.1 K/CMM] (01/14/15 2:09 AM) (01/05/15 1:50 PM) Lymphocytes # 0.7 K/CMM 1.5 K/CMM [1.0-5.5 K/CMM] *LOW* (01/05/15 1:50 PM) (01/14/15 2:09 AM) Monocytes # [0.0-0.8 0.2 K/CMM 0.5 K/CMM K/CMM] (01/14/15 2:09 AM) (01/05/15 1:50 PM) Eosinophils # 0.0 K/CMM 0.0 K/CMM [0.0-0.5 K/CMM] (01/14/15 2:09 AM) (01/05/15 1:50 PM) Basophils # [0.0-0.2 0.0 K/CMM 0.0 K/CMM K/CMM] (01/14/15 2:09 AM) (01/05/15 1:50 PM) Macrocyte [None 1+ Seen] *ABN* (01/05/15 1:50 PM) PT [12.0-14.7 12.9 seconds 12.2 seconds seconds] (01/14/15 2:09 AM) (01/05/15 1:50 PM) INR [0.85-1.17] 0.94 0.88 (01/14/15 2:09 AM) (01/05/15 1:50 PM) PTT [22.9-35.8 27.4 seconds 30.6 seconds seconds] (01/14/15 2:09 AM) (01/05/15 1:50 PM) Immunizations Vaccine Date Refusal Reason influenza virus vaccine, inactivated 01/14/15 influenza virus vaccine, inactivated 01/14/15 Patient Refuses Procedures Procedure Date Related Diagnosis Body Site Cholecystectomy 2005 Hysterectomy 1973 Social History Social History Type Response Smoking Status Former smoker; Ready to change: Yes; Exposure to Tobacco Smoke past smoker; Cigarette Smoking Last 365 Days No; Reg Smoking Cessation Counseling No Assessment and Plan Extracted from: Title: Discharge Summary * Author: Viv Salguero Date: 01/14/15 Discharge Information ATTENDING PHYSICIAN: Dr. Herminio Jack DATE OF ADMISSION: 01/13/2015 DATE OF PROCEDURE: 01/13/2015 DATE OF DISCHARGE: 01/14/2015 ADMITTING DIAGNOSES: CERVICAL SPINAL STENOSIS WITH RADICULOPATHY DISCHARGE DIAGNOSES: Same as above PRIMARY PROCEDURE ACDF OF C5-C7 DISPOSITION: The patient was discharged home in [...] activity greater than walking. 4. No excessive exertion, no bending or twisting of the spine. 5. Patient may shower, wash incision with mild soap and water then pat dry. 6. Wear brace at all times when Outof Bed 7. Do not submerge in a tub or pool for 2 weeks. DISCHARGE MEDICATIONS: --Percocet 10/325 mg 1 PO Q6 hours PRN. pain, #60, with no additional refills. --Baclofen 10mg PO QID # 90, with no additional refills. Note was completed by Viv Salguero PA-C on behalf of Dr. Herminio Jack Extracted from: Title: Neurosurgery Progress Note * Author: Viv Salguero Date: 01/14/15 Impression and Plan Ms. Birch is a 69 year old female who is s/p an ACDF of C5-C7. This is POD #1. 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 Herminio Jack. Extracted from: Title: Clinical Document Author: Herminio Jack MD Date: 01/13/15 Patient Name: Nikki Birch Date of Operation: 01/13/2015 Operation: Anterior Cervical Discectomy from C5/6 to C6/7 Arthrodesis of Cervical Disk Space (82342, 98884 ) Application of Interbody Mechanical Device ( [id number]) Application of Morselized Allograft (72743) Anterior Cervical Plating from C5to C7( 18667) Intraoperative use of microscope and fluoroscopy ( 18809, 60329) Indications: cervical stenosis with foraminal stenosis and radiculopathy Preoperative Diagnosis Cervical Radiculopathy( 723.4) Cervical Stenosis without myelopathy( 721.0) Cervical Pain( 723.1) Postoperative Diagnosis Same Attending: Herminio Jack MD Asst: Jose M Blood Loss 50cc Drains 7 flat PARAG drain Electrophysiologic Monitoring: none Specimens: None Complications: None Implants: -Interbody [id number] at C6-7 and [id number] at C5-6 -30 mm Aviator plate -4.0 x14 mm screws (fixed at the bottom ) -4.0 x14 mm screws ( variable in the middle and top) -Vitoss 2.5 cc (Synthetic bone) Procedure in detail: The patient was taken to the operating room and placed on the operating table in the supine postion. A time out was done after which he was started on pre op atbcs and 10 mg of deacdron. We gave her atbcs ( 2 grams of ancef). General Anesthesia was administered and the patient was promptly intubated. The patients neck was positioned in a slightly distracted and extended orientation and then prepped and drapped in the usual sterile fashion. C-arm fluoroscopy was used to identify the appropriate level(s). A corresponding transverse skin incision was marked and infiltrated with lidocaine. An incision was made on the right side of the neck centered over the C5-6 disc space. The skin incison was made with a #10 surgical blade and carried through the underlying platysma muscle layer. A plane of dissection was then developed along the medial border of the sternocleidomastoid muscle, medial to the carotid sheath and lateral to the trachea and esophagus down to the anterior border of the cervical spine. Exposure of the appropriate level was confirmed with fluoroscopy in the lateral projection. The longus colli muscles adjacent to the C5 to C7 vertebral bodies were bipolar electrocauterized and mobilized with a cloward periosteal elevator. A self retraining tractor with the medial blade edges was tucked underneath the medial border of the longus colli muscles. The microscope was then brought into the field. Under direct microscopic visualization, the anterior osteophytes were flattened with a high speed air powered drill. The anterior annulus at the C6-7 disk was incised with a #15 surgical blade and the disk space contents were removed with a pituitary rongeur and multiple sized codman curettes down to the posterior longitudinal ligament. An opening in the ligament was made using sharp and blunt dissection techniques, and through this opening a #2 and #1 kerrison ronguer was used to remove the ligament, the surrounding osteophytes and extruded disk space material. The decompression of the interspace was extended out to the left and right adjacent nerve root foramen where the foramen were widened with the use of the high speed air powered drill and a #2 kerrison rongeur. The adequacy of the decompression was confirmed probing the surrounding potential spaces with a blunt nerve hook. The endplates at the associated disectomy site were then decorticated with a high speed sir powered drill and sh aped to the appropriate contour to allow placement of an interbody mechanical device of the appropriate size filled with moreselized allograft. The orientation and placement of the implant was confirmed with fluoroscopic images. The like procedure was performed at the C5-6 level without any complications. Upon completion of the discetomy, arthodesis, implantation of the interbody mechanical devices at the aforementioned levels, the distance from the most rostral level to the most caudal level was measured and used to size a plate of the appropriate length. The plate was then fastened to the vertebral bodies with two screws at each level.. All screws achieved an adequate purchase and orientation based on fluoroscopic imaging. We placed a 7 flat Parag drain and tunneled it through The operative site was then copiously irrigated with normal bacitracin irrigation . We obtained hemostasis . We used a #[address] a 7 flat PARAG drain. The self retaining retractors were removed from the field The opening incision site was closed at the level of the platysma layer with interrupted 3.0 vicryl sutures and at the level of the skin with a running 4.0 monocryl suture. We applied dermabond glue on the wound. At the conclusion of the operation ,general anesthesia was weaned and the patient was promptly extubated and awoke performing at their neurologic baseline. SHe was taken to PACU Extracted from: Title: Preop History & Physical Author: Herminio Jack MD Date: 01/13/15 History of Present Illness: NIKKI BIRCH is a 68 year old female with Bipolar Disorder who was recently seen for neurosurgical consultation at the [facility] [place]. She presents today with complaints of progressively worsening lower back pain. The pain radiates into her right leg and foot. She ranks the pain as a 10/10 and says it is constant. She describes numbness and tingling in her lower extremities as well. She has weakness in her legs and says she now feels unsteady on her feet. She denies any bowel or bladder incontinence. Additionally, she complains of neck pain and pain that radiates into her shoulders and arms. She denies any numbness or weakness in her upper extremities. No trauma or injury. She has tried multiple injections in her back, therapy and po pain meds medicines and still her pain persists. She got surgery clearance and is ready to proceed with surgery for more permanent relief in her pain. Past Medical History History of Anxiety disorder,History of Bipolar disorder,History of Depression Surgical History Family History Family history of Brain Aneurysm,Family history of Hypertension,Family history of Diabetes Family History Unknown Father (biol.) Social History Employment/Occupation: retired Marital Status: Number of Children: 3 Patient Exercises: No Exercise Frequency: N/A The patients status is: Not Tobacco Use: former smoker Patient does not drink alcohol. No illicit drug abuse Problem list CERVICAL RADICULOPATHY (ICD-723.4) (CCC32-A22.12) SPONDYLOLISTHESIS, LUMBAR (ICD-756.12) (JGH97-Q38.2) LUMBAR RADICULOPATHY (ICD-724.4) (GUW52-T50.16) Problems reviewed during this update. Medications ATORVASTATIN CALCIUM 20 MG TABS (ATORVASTATIN CALCIUM) OD DEPAKOTE 250 MG TBEC (DIVALPROEX SODIUM) 5x's daily ASPIRIN LOW DOSE 81 MG TABS (ASPIRIN) OD POTASSIMIN TABS (POTASSIUM TABS) 1 daily CLOPIDOGREL BISULFATE 75 MG TABS (CLOPIDOGREL BISULFATE) PERCOCET 7.5-325 MG TABS (OXYCODONE-ACETAMINOPHEN) Medications reviewed during this update. Allergies * ABILIFY (Critical) EFFEXOR (Critical) PAXIL (Critical) * GEODON (Critical) * RISPERDAL (Critical) * LITHIUM (Critical) Allergies reviewed during this update. Allergies to medications, latex, X-ray,dye, Iodine? yes Blood thinning medications?: yes Blood Thinning Medications: Aspirin/Aspirin-containing medications, Plavix (Reviewed) Review of Systems All other systems negative as documented in the neurosurgical health history questionnaire. All systems negative as documented in the Neurosurgical health history questionnaire. General: tired (fatigue) Eyes: eyesight problems,cataracts Cardiovascular: heart murmur,high cholesterol,swelling in hands or feet,leg pain,leg pain while walking,lower leg swelling Gastrointestinal: constipation,heartburn Musculoskeletal: arthritis,neck pain,back pain,sciatica Neurologic: dizziness,headache,confused or disoriented,memory lapses/loss Psychiatric: insomnia,anxiety,depression Vital Signs Weight: 147 lb (66.82 kg) Height: 63 in (5 ft 3 in) 160.02 cm Pulse: 95 Blood Pressure: 156/84 mm Hg BMI 26.13 BSA 1.72 Physical Exam GENERAL APPEARANCE The patient is normal, in no acute distress. HEENT Normocephalic, conjunctiva clear, normal TM's and EAC's, normal nasal and oral mucosa, throat clear without exudates. NECK Neck exam: supple and mobile, no thyromegaly or adenopathy. SKULL AND SPINE Good range of motion. No pain on palpation. MENTAL STATUS Consciousness: Awake and alert. Orientation: The patient is oriented to person, place, time. Affect: Within normal limits. Apraxia: There is no evidence of apraxia Speech: Speech is clear without dysarthria or dysphasia. Thought content: No abnormalities noted. CRANIAL NERVES CN II (Optic Nerve): Visual Mendoza: Normal to double simultaneous confrontation. Pupils: Equal and reactive to light bilaterally. CN III, IV, : Extraocular movements are full and without nystagmus. CN V: Facial sensation is normal. CN VII: Facial motion is normal. CN IX, X: The palate elevates in the midline. CN XI: Shoulder shrug is symmetrical. CN XII: The tongue protrudes in the midline. MOTOR Bulk: Normal bulk. Tone: Normal tone in upper and lower extremities bilaterally. Fasciculations: There are no fasciculations noted. Strength: Strength is 4-/5+ in upper and lower extremities bilaterally. Effort: Effort appears to be normal. SENSORY Sensory: Sensation is decreased to touch in the bilateral lower extremities and is normal to touch in the upper extremities. REFLEXES Biceps (R): 2 / (L): 2 Triceps (R): 2 / (L): 2 Brachioradialis (R): 2 / (L): 2 Knee (R): 2 / (L): 2 Ankle (R): 2 / (L): 2 Babinski (R): Down / (L): Down Gates (R): Absent / (L): Absent COORDINATION Coordination: Finger to nose: Finger to nose is normal. Heel to cowan: Heel to cowan is normal. Rapid alternating movements: Normal . Rest tremor: None. Titubation: Absent. GAIT Gait: Gait: Normal. Heel walk: Normal. Toe walk: Normal. Tandem walk: Normal. EXTREMITIES Extremities are without clubbing, cyanosis or edema, no joint abnormalites noted. RESPIRATORY Chest is clear to auscultation. CARDIOVASCULAR Heart has regular rate and rhythm. Pulses are normal in upper and lower extremities. Capillary refill is normal. GASTROINTESTINAL Normal bowel sounds. No organomegaly or masses. LYMPHATIC No nodes are palpable in neck, axillae or groin. SKIN No rashes, lesions, or ulcerations. DIAGNOSTIC TEST STATUS MRI L-spine: Jarret +: No Comment: [facility], 11/05/2012 (did not bring film): Anterolisthesis of L5 on S1 of 6 mm with significant foraminal narrowing. Central stenosis also seen of moderate degree and there is even deformity of both S1 nerve root sleeve in their lateral recess due to slippage. CT Lumbar Spine: Comment: [facility], 11/11/2013 (actual film): Grade 1 anterolisthesis and severe facet arthropathy at L5-S1. There is also mild central canal and lateral rcess narrowing, [id number] left, [id number] right foraminal narrowing. Mild degenerative change at other levels. Flexion-extension x-ray (Lumbar): Status of care: Completed at [facility] Medications: ATORVASTATIN CALCIUM 20 MG TABS (ATORVASTATIN CALCIUM) OD DEPAKOTE 250 MG TBEC (DIVALPROEX SODIUM) 5x's daily ASPIRIN LOW DOSE 81 MG TABS (ASPIRIN) OD POTASSIMIN TABS (POTASSIUM TABS) 1 daily CLOPIDOGREL BISULFATE 75 MG TABS (CLOPIDOGREL BISULFATE) PERCOCET 7.5-325 MG TABS (OXYCODONE-ACETAMINOPHEN) Orders: Added new Test order of C SPine XR w/Flex & Ext (CPT-[id number]) - Signed Added new Service order of Office Visit - Pt - Comp/Moderate Complex - 07536 (CPT-[id number]) - Signed Impression: 1) CERVICAL RADICULOPATHY. 2) SPONDYLOLISTHESIS; LUMBAR. 3) LUMBAR RADICULOPATHY. Ms. Birch is a 68 year old female with lower back pain and lumbar radiculopathy and cervical neck pain. Her MRI images were reviewed and she has degeneration at several levels in her lumbar spine but most notably she has disc fragments at L4-L5 and L5-S1 with some cord compression. She also has ligement hypertrophy at the same levels, which are causing some stenosis and nerve root compression. She has anterolisthesis of L5 on S1 which is contributing to her symptoms. Her Cervical MRI shows advanced degenration of multiple levels, including bulging disc fragments from C4-C7 with canal stenosis and ligament hypertrophy at the same levels. She will need surgical intervention of both the cervical and lumbar spine. We will first address the cervical spine. Flexion and extension xrays ruled out any significant motion. She got cardiac clearance and is ready to proceed with surgery. The risks and benefits were discussed and all her questions were answered. Plan: Proceed with an ACDF of C5-C6, C6-C7 and possibly C4-C5 This note was dictated by Viv Salguero PA-C on behalf of Dr. Herminio Jack.
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
--- OUTSIDE RECORDS SUMMARY | 2018-07-24 14:54 | XMS REPORT | Summary of Care ---
Author Author [facility] Outpatient Imaging [facility] [place] Address Unknown Phone Unavailable Encounter HQ Encntr_alias(FIN) [id number] Date(s): 11/09/14 - 11/09/14 [facility] [place] [address] [place] [address] Discharge Disposition: Home Attending Physician: Herminio Jack MD Vital Signs No data available for this section Problem List No data available for this section Allergies, Adverse Reactions, Alerts No data available for this section Medications No data available for this section Results No data available for this section Immunizations No data available for this section Procedures No data available for this section Social History No data available for this section Assessment and Plan No data available for this section
--- OUTSIDE RECORDS SUMMARY | 2018-07-24 14:54 | XMS REPORT | Summary of Care ---
Author Author [facility] Organization [facility] Address Unknown Phone Unavailable Encounter JAYDA Sheth(FIN) [id number] Date(s): 09/04/17 - 09/05/17 [facility] [address], [address] [place], [place] [address] [phone] Vital Signs No data available for this [...]
--- OUTSIDE RECORDS SUMMARY | 2018-07-24 14:54 | XMS REPORT | Summary of Care ---
Author Author [facility] Outpatient Imaging [facility]patient [facility] [place] Address Unknown Phone Unavailable Encounter HQ Encntr_alias(FIN) [id number] Date(s): 11/17/14 - 11/17/14 [facility] Outpatient Imaging [address] Discharge Disposition: Home Attending Physician: Ayaz Ruggiero MD Vital Signs No data available for [...]
--- OUTSIDE RECORDS SUMMARY | 2018-07-24 14:55 | XMS REPORT | Summary of Care ---
Author Author [facility] Organization [facility] Address Unknown Phone Unavailable Encounter JAYDA Sheth(REAGAN) [id number] Date(s): 03/22/15 - 03/22/15 [facility] [address] [place] [address]- Discharge Disposition: Home Attending Physician: Herminio Jack MD Referring Physician: Herminio Jack MD Vital Signs Most recent to 1 oldest [Reference Range]: Height 160.02 cm (03/22/15 11:00 AM) Weight 72.545 kg (03/22/15 11:00 AM) Body Mass Index 28.33 m2 (03/22/15 11:00 AM) Problem List Condition Effective Dates Status [...] Originally documented as EFFEXOR. 6Data migrated from [employer] on 12/06/14. Originally documented as GEODON. Medications No data available for this section Results No data available for this section Immunizations Vaccine Date Refusal Reason influenza virus vaccine, inactivated 01/14/15 influenza virus vaccine, inactivated 01/14/15 Patient Refuses Procedures Procedure Date Related Diagnosis Body Site Cholecystectomy 2005 Hysterectomy 1973 Social History Social History Type Response Smoking Status Former smoker; Ready to change: No; Concerns about tobacco use in household: No; Exposure to Tobacco Smoke past smoker; Cigarette Smoking Last 365 Days No; Reg Smoking Cessation Counseling No Assessment and Plan No data available for this section
--- OUTSIDE RECORDS SUMMARY | 2018-07-24 14:55 | XMS REPORT | Summary of Care ---
Author Author [facility] Organization [facility] Address Unknown Phone Unavailable Encounter JAYDA Sheth(REAGAN) [id number] Date(s): 11/30/15 - 12/05/15 [facility] [address] [place] [address]- Discharge Disposition: Home or Self Care Attending Physician: Destiny Sun MD Admitting Physician: Destiny Sun MD Vital Signs 1 2 3 Most recent to oldest [Reference Range]: 160.02 cm (11/30/15 9:04 PM) 160.02 cm (11/30/15 1:10 PM) Height 98.2 DegF (12/05/15 3:43 PM) 98.1 DegF (12/05/15 11:49 AM) 98.1 DegF (12/05/15 7:32 AM) Temperature Oral [96.4-99.1 DegF] 132/66 mmHg (12/05/15 3:43 PM) 116/67 mmHg (12/05/15 11:49 AM) 124/52 mmHg (12/05/15 7:32 AM) Blood Pressure [90-140/60-90 mmHg] 18 BRMIN (12/05/15 3:43 PM) 18 BRMIN (12/05/15 11:49 AM) 18 BRMIN (12/05/15 7:32 AM) Respiratory Rate [14-20 BRMIN] 72 bpm (12/05/15 3:43 PM) 72 bpm (12/05/15 11:49 AM) 73 bpm (12/05/15 7:32 AM) Peripheral Pulse Rate [60-100 bpm] 72.074 kg (11/30/15 9:04 PM) 76.818 kg (11/30/15 1:10 PM) Weight 28.15 m2 (11/30/15 9:04 PM) 30 m2 (11/30/15 1:10 PM) Body Mass Index Problem List Condition [...] 12/06/14. Originally documented as GEODON. Medications acetaminophen 650 mg, 2 tab, Route: PO, Drug form: TAB, Q6H, Dosing Weight 72.074, kg, PRN Rustam n 1-3/Temp > 100.4 F, Start date: 11/30/15 21:56:00 CDT, Duration: 30 day, Stop date: 12/30/15 21:55:00 CDT Notes: Do not exceed 4 gm/day. (Same as: Tylenol) Start Date: 11/30/15 Stop Date: 12/05/15 Status: Discontinued acetaminophen (ANES) (ANES) Route: IV, Drug form: INJ, Start date: 12/01/15 17:21:00 CDT, Stop date: 6 18:21:00 CDT Start Date: 12/01/15 Stop Date: 12/01/15 Status: Completed acetaminophen-10 mg/mL INTRAVENOUS solution 1,000 mg, 100 mL, Route: IV, Drug form: INJ, Q6H, Dosing Weight 72.074, kg, For > or=50 kg, Start date: 12/02/15 0:00:00 CDT, Duration: 2 doses or times, Stop date: 12/02/15 6:00:00 CDT Notes: Infuse over 15 minutesDo not exceed 4gm/day of acetaminophen MEDICAT ION WASTE Product Size: 1000 mgProduct Wasted: ___ mg Start Date: 12/02/15 Stop Date: 12/02/15 Status: Completed acetaminophen-hydrocodone 325 mg-5 mg oral tablet 1 tab, Route: PO, Drug Form: TAB, Dosing Weight 72.074, kg, Q4H, PRN Pain Score 4-6, Start date: 12/01/15 0:33:00 CDT, Duration: 30 day, Stop date: 12/31/15 0:3 2:00 CDT Notes: (Same as: Kent 325/5) Do not exceed 4gm/day of acetaminophen. Start Date: 12/01/15 Stop Date: 12/05/15 Status: Discontinued ANES acetaminophen 1,000 mg, 100 mL, Route: IVPB, Drug form: INJ, ONCE, Dosing Weight 72.074, kg, P RN Pain Score 1-3, Start date: 12/01/15 14:20:00 CDT, Duration: 1 doses or times , Stop date: Limited # of times Notes: Infuse over 15 minutesDo not exceed 4gm/day of acetaminophen MEDICAT ION WASTE Product Size: 1000 mgProduct Wasted: ___ mg Start Date: 12/01/15 Stop Date: 12/01/15 Status: Discontinued ANES fentaNYL 25 microgram, 0.5 mL, Route: IVP, Drug form: INJ, Q5Min, Dosing Weight 72.074, k g, PRN Pain Score 4-6, Start date: 12/01/15 14:20:00 CDT, Duration: 4 doses or t imes, Stop date: Limited # of times Notes: (Same as: Sublimaze) Preservative free. Start Date: 12/01/15 Stop Date: 12/01/15 Status: Completed ANES flumazenil 0.2 mg, 2 mL, Route: IVP, Drug form: INJ, PRN, Dosing Weight 72.074, kg, PRN Tylor zodiazepine Reversal, Initial dose, Start date: 12/01/15 14:20:00 CDT, Duration: 30 day, Stop date: 12/31/15 14:19:00 CDT Notes: (Same as: Romazicon) Start Date: 12/01/15 Stop Date: 12/01/15 Status: Discontinued ANES HYDROmorphone 0.5 mg, 0.5 mL, Route: IVP, Drug form: INJ, Q5Min, Dosing Weight 72.074, kg, PRN Pain Score 7-10, Start date: 12/01/15 14:20:00 CDT, Duration: 4 doses or times, Stop date: Limited # of times Notes: Same as: Dilaudid Start Date: 12/01/15 Stop Date: 12/01/15 Status: Completed ANES meperidine 12.5 mg, 0.5 mL, Route: IVP, Drug form: INJ, Q30Min, Dosing Weight 72.074, kg, P RN Other -See Comment, For shivering, Start date: 12/01/15 14:20:00 CDT, Duratio n: 2 doses or times, Stop date: Limited # of times Notes: (Same as: Demerol) "Use Precaution in Elderly, Seizure disorders, and Re nal impairment" Start Date: 12/01/15 Stop Date: 12/01/15 Status: Discontinued ANES naloxone 0.4 mg, 1 mL, Route: IVP, Drug form: INJ, Q2MIN, Dosing Weight 72.074, kg, PRN N arcotic Reversal, Start date: 12/01/15 14:20:00 CDT, Duration: 8 doses or times, Stop date: Limited # of times Notes: Same as Narcan Start Date: 12/01/15 Stop Date: 12/01/15 Status: Discontinued ANES ondansetron 4 mg, 2 mL, Route: IVP, Drug form: INJ, ONCE, Dosing Weight 72.074, kg, PRN Naus ea & Vomiting, Start date: 12/01/15 14:20:00 CDT Notes: (Same as: Zofran) MEDICATION WASTE Product Size: 4 mgProduct Was brandon: ___ mg Start Date: 12/01/15 Stop Date: 12/01/15 Status: Discontinued atorvastatin 20 mg, 1 tab, Route: PO, Drug form: TAB, Bedtime, Dosing Weight 72.074, kg, Star t date: 12/01/15 21:00:00 CDT, Duration: 30 day, Stop date: 12/30/15 21:00:00 CD T Notes: (Same As: Lipitor) Start Date: 12/01/15 Stop Date: 12/05/15 Status: Discontinued Benadryl 25 mg, 1 cap, Route: PO, Drug form: CAP, TID, Dosing Weight 72.074, kg, PRN Itch ing, Start date: 12/01/15 19:00:00 CDT, Duration: 30 day, Stop date: 12/31/15 18 :59:00 CDT Notes: (Same as: Benadryl) Start Date: 12/01/15 Stop Date: 12/05/15 Status: Discontinued Bentyl 10 mg, 1 cap, Route: PO, Drug form: CAP, TID, Dosing Weight 72.074, kg, PRN Cram ps, Start date: 12/04/15 7:50:00 CDT, Duration: 30 day, Stop date: 01/03/16 7:49 :00 CDT Notes: (Same as: Bentyl) Start Date: 12/04/15 Stop Date: 12/05/15 Status: Discontinued calcium-vitamin D 600 mg-400 intl units oral tablet 1 tab, Route: PO, Drug Form: TAB, Dosing Weight 72.074, kg, BID, Start date: 9:00:00 CDT, Duration: 30 day, Stop date: 12/30/15 17:00:00 CDT Notes: Same as CalCarb 600 /Vitamin D Start Date: 12/01/15 Stop Date: 12/05/15 Status: Discontinued clopidogrel 75 mg, 1 tab, Route: PO, Drug form: TAB, Daily, Dosing Weight 72.074, kg, Start date: 12/01/15 9:00:00 CDT, Duration: 30 day, Stop date: 12/30/15 9:00:00 CDT Notes: (Same As: Plavix) Start Date: 12/01/15 Stop Date: 12/05/15 Status: Discontinued clopidogrel 75 mg oral tablet 75 mg=1 tab, PO, Daily, # 30 tab, 0 Refill(s) Start Date: 11/30/15 Stop Date: 12/01/15 Status: Discontinued Colace 100 mg oral capsule 100 mg, 1 cap, Route: PO, Drug form: CAP, BID, Dosing Weight 72.074, kg, Start d ate: 12/02/15 9:00:00 CDT, Duration: 30 day, Stop date: 12/31/15 17:00:00 CDT Notes: (Same as: Colace) (Do Not Crush) Start Date: 12/02/15 Stop Date: 12/03/15 Status: Discontinued dexamethasone 4 mg, 1 mL, Route: IV, Drug form: INJ, [id number], Dosing Weight 72.074, kg, Priori ty: NOW, Start date: 12/01/15 0:35:00 CDT, Duration: 30 day, Stop date: 12/30/15 13:00:00 CDT Notes: Concentration: 4mg/ml Start Date: 12/01/15 Stop Date: 12/05/15 Status: Discontinued dexamethasone (ANES) Route: IV, Drug form: INJ, ONCE, Stop date: 12/01/15 16:30:00 CDT Start Date: 12/01/15 Stop Date: 12/01/15 Status: Completed Dextrose 50% Syringe 25 gm, 50 mL, Route: IVP, Drug Form: INJ, Dosing Weight 72.074, kg, PRN, PRN Blo od Glucose Results, Start date: 12/04/15 6:05:00 CDT, Duration: 30 day, Stop shabana e: 01/03/16 6:04:00 CDT Start Date: 12/04/15 Stop Date: 12/05/15 Status: Discontinued Dextrose 50% Syringe 12.5 gm, 25 mL, Route: IVP, Drug Form: INJ, Dosing Weight 72.074, kg, PRN, PRN B lood Glucose Results, Start date: 12/04/15 6:05:00 CDT, Duration: 30 day, Stop d ate: 01/03/16 6:04:00 CDT Start Date: 12/04/15 Stop Date: 12/05/15 Status: Discontinued divalproex sodium 500 mg oral enteric coated tablet (Depakote) 500 mg, 1 tab, Route: PO, Drug form: ECTAB, BID, Dosing Weight 72.074, kg, Start date: 12/01/15 9:00:00 CDT, Duration: 30 day, Stop date: 12/30/15 17:00:00 CDT Notes: (Same as: Depakote Delayed Release) Do not confuse with the extended-rel ease tablet. Delayed absorption enteric coated tablet. Do not crush Start Date: 12/01/15 Stop Date: 12/05/15 Status: Discontinued docusate 100 mg, 1 cap, Route: PO, Drug form: CAP, BID, Dosing Weight 72.074, kg, PRN Con stipation, Start date: 12/01/15 0:33:00 CDT, Duration: 30 day, Stop date: 0:32:00 CDT Notes: (Same as: Colace) (Do Not Crush) Start Date: 12/01/15 Stop Date: 12/05/15 Status: Discontinued docusate sodium 100 mg oral capsule 200 mg, 2 cap, Route: PO, Drug form: CAP, BID, Start date: 12/04/15 9:00:00 CDT, Duration: 30 day, Stop date: 01/02/16 17:00:00 CDT Notes: (Same as: Colace) (Do Not Crush) Start Date: 12/04/15 Stop Date: 12/05/15 Status: Discontinued docusate sodium 100 mg oral capsule 100 mg, 1 cap, Route: PO, Drug form: CAP, ONCE, Priority: NOW, Start date: 12/02 18:34:00 CDT, Stop date: 12/03/15 18:34:00 CDT Notes: (Same as: Colace) (Do Not Crush) Start Date: 12/03/15 Stop Date: 12/03/15 Status: Completed Dulcolax Laxative 10 mg, 1 supp, Route: MD, Drug form: SUPP, BID, Dosing Weight 72.074, kg, PRN Co nstipation, Start date: 12/02/15 17:48:00 CDT, Duration: 30 day, Stop date: 12/14 11/28 17:47:00 CDT Notes: (Same As: Dulcolax, Bisco-Lax) Start Date: 12/02/15 Stop Date: 12/05/15 Status: Discontinued enoxaparin 30 mg, 0.3 mL, Route: SUB-Q, Drug form: INJ, [id number], Dosing Weight 72.074, kg, Start date: 12/01/15 20:00:00 CDT, Duration: 30 day, Stop date: 12/31/15 8:00:00 CDT Notes: (Same as: Lovenox) Start Date: 12/01/15 Stop Date: 12/02/15 Status: Discontinued famotidine (ANES) Route: IV, Drug form: INJ, ONCE, Stop date: 12/01/15 16:25:00 CDT Start Date: 12/01/15 Stop Date: 12/01/15 Status: Completed fentaNYL (ANES) Route: IV, Drug form: INJ, ONCE, Stop date: 12/01/15 16:30:00 CDT Start Date: 12/01/15 Stop Date: 12/01/15 Status: Completed glucagon 1 mg, Route: IM, Drug form: PDR/INJ, PRN, Dosing Weight 72.074, kg, PRN Blood Gl ucose Results, Start date: 12/04/15 6:05:00 CDT, Duration: 30 day, Stop date: 6:04:00 CDT Start Date: 12/04/15 Stop Date: 12/05/15 Status: Discontinued heparin 5,000 unit, 1 mL, Route: SUB-Q, Drug form: INJ, Q12H, Dosing Weight 72.074, kg, Start date: 12/03/15 21:00:00 CDT, Duration: 30 day, Stop date: 01/02/16 9:00:00 CDT Notes: porcine heparin Start Date: 12/03/15 Stop Date: 12/05/15 Status: Discontinued hydromorphone 1 mg, 1 mL, Route: IVP, Drug form: INJ, ONCE, Dosing Weight 76.818, kg, Priority : STAT, Start date: 11/30/15 19:30:00 CDT, Stop date: 11/30/15 19:30:00 CDT Notes: Same as: Dilaudid Start Date: 11/30/15 Stop Date: 11/30/15 Status: Completed hydromorphone (ANES) Route: IV, Drug form: INJ, ONCE, Stop date: 12/01/15 16:20:00 CDT Start Date: 12/01/15 Stop Date: 12/01/15 Status: Completed insulin aspart 4 unit, 0.04 mL, Route: SUB-Q, Drug form: SOLN, Bedtime, Dosing Weight 72.074, k g, PRN Blood Glucose Results, Start date: 12/04/15 6:05:00 CDT, Duration: 30 day , Stop date: 01/03/16 6:04:00 CDT Notes: Roll in palms of hands gently; Do not shake vigorously. (Same as: Mai Rodriguez)"single patient use only"WASTE: F/P - Black; E - Municipal Trash Bin Stable f or 28 days at room temperature.Expires in days from Date Start Date: 12/04/15 Stop Date: 12/05/15 Status: Discontinued insulin aspart 6 unit, 0.06 mL, Route: SUB-Q, Drug form: SOLN, TID-Before Meals, Dosing Weight 72.074, kg, PRN Blood Glucose Results, Start date: 12/04/15 6:05:00 CDT, Duratio n: 30 day, Stop date: 01/03/16 6:04:00 CDT Notes: Roll in palms of hands gently; Do not shake vigorously. (Same as: Mai Rodriguez)"single patient use only"WASTE: F/P - Black; E - Municipal Trash Bin Stable f or 28 days at room temperature.Expires in days from Date Start Date: 12/04/15 Stop Date: 12/05/15 Status: Discontinued insulin aspart 3 unit, 0.03 mL, Route: SUB-Q, Drug form: SOLN, Bedtime, Dosing Weight 72.074, k g, PRN Blood Glucose Results, Start date: 12/04/15 6:05:00 CDT, Duration: 30 day , Stop date: 01/03/16 6:04:00 CDT Notes: Roll in palms of hands gently; Do not shake vigorously. (Same as: Mai Rodriguez)"single patient use only"WASTE: F/P - Black; E - Municipal Trash Bin Stable f or 28 days at room temperature.Expires in days from Date Start Date: 12/04/15 Stop Date: 12/05/15 Status: Discontinued insulin aspart 1 unit, 0.01 mL, Route: SUB-Q, Drug form: SOLN, Bedtime, Dosing Weight 72.074, k g, PRN Blood Glucose Results, Start date: 12/04/15 6:05:00 CDT, Duration: 30 day , Stop date: 01/03/16 6:04:00 CDT Notes: Roll in palms of hands gently; Do not shake vigorously. (Same as: Mai Rodriguez)"single patient use only"WASTE: F/P - Black; E - Municipal Trash Bin Stable f or 28 days at room temperature.Expires in days from Date Start Date: 12/04/15 Stop Date: 12/05/15 Status: Discontinued insulin aspart 2 unit, 0.02 mL, Route: SUB-Q, Drug form: SOLN, Bedtime, Dosing Weight 72.074, k g, PRN Blood Glucose Results, Start date: 12/04/15 6:05:00 CDT, Duration: 30 day , Stop date: 01/03/16 6:04:00 CDT Notes: Roll in palms of hands gently; Do not shake vigorously. (Same as: Mai Rodriguez)"single patient use only"WASTE: F/P - Black; E - Municipal Trash Bin Stable f or 28 days at room temperature.Expires in days from Date Start Date: 12/04/15 Stop Date: 12/05/15 Status: Discontinued insulin aspart 4 unit, 0.04 mL, Route: SUB-Q, Drug form: SOLN, TID-Before Meals, Dosing Weight 72.074, kg, PRN Blood Glucose Results, Start date: 12/04/15 6:05:00 CDT, Duratio n: 30 day, Stop date: 01/03/16 6:04:00 CDT Notes: Roll in palms of hands gently; Do not shake vigorously. (Same as: NovoMIKAL Rodriguez)"single patient use only"WASTE: F/P - Black; E - Municipal Trash Bin Stable f or 28 days at room temperature.Expires in days from Date Start Date: 12/04/15 Stop Date: 12/05/15 Status: Discontinued insulin aspart 2 unit, 0.02 mL, Route: SUB-Q, Drug form: SOLN, TID-Before Meals, Dosing Weight 72.074, kg, PRN Blood Glucose Results, Start date: 12/04/15 6:05:00 CDT, Duratio n: 30 day, Stop date: 01/03/16 6:04:00 CDT Notes: Roll in palms of hands gently; Do not shake vigorously. (Same as: NovoMIKAL G)"single patient use only"WASTE: F/P - Black; E - Municipal Trash Bin Stable f or 28 days at room temperature.Expires in days from Date Start Date: 12/04/15 Stop Date: 12/05/15 Status: Discontinued insulin aspart 8 unit, 0.08 mL, Route: SUB-Q, Drug form: SOLN, TID-Before Meals, Dosing Weight 72.074, kg, PRN Blood Glucose Results, Start date: 12/04/15 6:05:00 CDT, Duratio n: 30 day, Stop date: 01/03/16 6:04:00 CDT Notes: Roll in palms of hands gently; Do not shake vigorously. (Same as: NovoMIKAL G)"single patient use only"WASTE: F/P - Black; E - Municipal Trash Bin Stable f or 28 days at room temperature.Expires in days from Date Start Date: 12/04/15 Stop Date: 12/05/15 Status: Discontinued insulin aspart 10 unit, 0.1 mL, Route: SUB-Q, Drug form: SOLN, TID-Before Meals, Dosing Weight 72.074, kg, PRN Blood Glucose Results, Start date: 12/04/15 6:05:00 CDT, Duratio n: 30 day, Stop date: 01/03/16 6:04:00 CDT Notes: Roll in palms of hands gently; Do not shake vigorously. (Same as: NovoLO G)"single patient use only"WASTE: F/P - Black; E - Municipal Trash Bin Stable f or 28 days at room temperature.Expires in days from Date Start Date: 12/04/15 Stop Date: 12/05/15 Status: Discontinued Keflex 500 mg oral capsule 500 mg=1 cap, PO, QID, X 10 day, # 40 cap, 0 Refill(s) Start Date: 12/05/15 Stop Date: 12/15/15 Status: Ordered labetalol (ANES) Route: IV, Drug form: INJ, ONCE, Stop date: 12/01/15 18:20:00 CDT Start Date: 12/01/15 Stop Date: 12/01/15 Status: Completed lactulose 20 gm, 30 mL, Route: PO, Drug form: SYRP, Q6H, PRN Constipation, Start date: 18:35:00 CDT, Duration: 30 day, Stop date: 01/02/16 18:34:00 CDT Notes: (Same as:Chronulac) Start Date: 12/03/15 Stop Date: 12/04/15 Status: Discontinued lactulose 10 g/15 mL oral syrup 10 gm, 15 mL, Route: PO, Drug Form: SYRP, Dosing Weight 72.074, kg, BID, Start d ate: 12/02/15 11:53:00 CDT, Duration: 30 day, Stop date: 01/01/16 9:00:00 CDT Notes: (Same as:Chronulac) Start Date: 12/02/15 Stop Date: 12/02/15 Status: Discontinued lidocaine (ANES) Route: IV, Drug form: INJ, ONCE, Stop date: 12/01/15 16:30:00 CDT Start Date: 12/01/15 Stop Date: 12/01/15 Status: Completed LR 1000 mL INJ (ANES) Route: IV, Total Volume: 1,000, Start date: 12/01/15 15:00:00 CDT, Stop date: 16:00:00 CDT Start Date: 12/01/15 Stop Date: 12/01/15 Status: Completed methylnaltrexone 12 mg, Route: SUB-Q, ONCE, Dosing Weight 72.074, kg, Start date: 12/03/15 18:04: 00 CDT, Stop date: 12/03/15 18:04:00 CDT Start Date: 12/03/15 Stop Date: 12/03/15 Status: Discontinued metoclopramide 10 mg, 2 mL, Route: IVP, Drug form: INJ, Q6H, Dosing Weight 72.074, kg, PRN Naus ea & Vomiting, Start date: 12/04/15 5:53:00 CDT, Duration: 30 day, Stop date: 01/03/16 5:52:00 CDT Notes: (Same as: Reglan) Start Date: 12/04/15 Stop Date: 12/05/15 Status: Discontinued metoprolol tartrate 25 mg, 1 tab, Route: PO, Drug form: TAB, BID, Dosing Weight 72.074, kg, Start da te: 12/01/15 9:00:00 CDT, Duration: 30 day, Stop date: 12/30/15 17:00:00 CDT Notes: (Same as: Lopressor) Start Date: 12/01/15 Stop Date: 12/05/15 Status: Discontinued midazolam (ANES) Route: IV, Drug form: SOLN, ONCE, Stop date: 12/01/15 16:25:00 CDT Start Date: 12/01/15 Stop Date: 12/01/15 Status: Completed Milk of Magnesia 60 ml, Route: PO, Drug Form: SUSP, Dosing Weight 72.074, kg, Q4H, Start date: 12:00:00 CDT, Duration: 30 day, Stop date: 01/02/16 8:00:00 CDT Notes: (Same as: Milk of Magnesia, MOM) Start Date: 12/03/15 Stop Date: 12/04/15 Status: Discontinued MiraLax 17 gm, 1 pkt, Route: PO, Drug form: PWDR, TID, Dosing Weight 72.074, kg, Start d ate: 12/02/15 20:00:00 CDT, Duration: 30 day, Stop date: 01/01/16 17:00:00 CDT Notes: Dissolve in 8 oz of water or juice.(Same as: Miralax) Start Date: 12/02/15 Stop Date: 12/05/15 Status: Discontinued MiraLax 17 gm, 1 pkt, Route: PO, Drug form: PWDR, Daily, Dosing Weight 72.074, kg, Start date: 12/02/15 9:00:00 CDT, Duration: 30 day, Stop date: 12/31/15 9:00:00 CDT Notes: Dissolve in 8 oz of water or juice.(Same as: Miralax) Start Date: 12/02/15 Stop Date: 12/02/15 Status: Discontinued montelukast 10 mg, 1 tab, Route: PO, Drug form: TAB, Bedtime, Dosing Weight 72.074, kg, Star t date: 12/01/15 21:00:00 CDT, Duration: 30 day, Stop date: 12/30/15 21:00:00 CD T Notes: (Same as:Singulair) Start Date: 12/01/15 Stop Date: 12/05/15 Status: Discontinued montelukast 10 mg oral tablet 10 mg=1 tab, PO, Bedtime, # 30 tab, 0 Refill(s) Start Date: 11/30/15 Stop Date: 12/01/15 Status: Discontinued morphine Sulfate 6 mg, Route: IM, Drug form: INJ, ONCE, Dosing Weight 76.818, kg, Priority: STAT, Start date: 11/30/15 14:53:00 CDT, Stop date: 11/30/15 14:53:00 CDT Notes: (Same as:MORPhine Sulfate) Start Date: 11/30/15 Stop Date: 11/30/15 Status: Completed morphine Sulfate 2 mg, 1 mL, Route: IVP, Drug form: INJ, Q4H, Dosing Weight 72.074, kg, PRN Pain Score 7-10, Start date: 12/01/15 0:33:00 CDT, Duration: 30 day, Stop date: 12/30 0:32:00 CDT Notes: (Same as:MORPhine Sulfate) Start Date: 12/01/15 Stop Date: 12/02/15 Status: Discontinued morphine Sulfate 4 mg, 1 mL, Route: IVP, Drug form: INJ, Q2H, Dosing Weight 72.074, kg, PRN Pain Score 7-10, Start date: 12/02/15 16:18:00 CDT, Duration: 30 day, Stop date: 12/14 11/28 16:17:00 CDT Notes: (Same as:MORPhine Sulfate) Start Date: 12/02/15 Stop Date: 12/05/15 Status: Discontinued morphine Sulfate 4 mg, 1 mL, Route: IVP, Drug form: INJ, ONCE, Dosing Weight 72.074, kg, Start da te: 11/30/15 21:51:00 CDT, Stop date: 11/30/15 21:51:00 CDT Notes: (Same as:MORPhine Sulfate) Start Date: 11/30/15 Stop Date: 12/01/15 Status: Completed morphine Sulfate 2 mg, 1 mL, Route: IVP, Drug form: INJ, Q4H, Dosing Weight 72.074, kg, PRN Pain Score 7-10, Start date: 11/30/15 21:57:00 CDT, Duration: 30 day, Stop date: 12/14 09/28 21:56:00 CDT Notes: (Same as:MORPhine Sulfate) Start Date: 11/30/15 Stop Date: 12/02/15 Status: Discontinued morphine Sulfate 2 mg, 1 mL, Route: IVP, Drug form: INJ, Q2H, Dosing Weight 72.074, kg, PRN Other -See Comment, Start date: 12/01/15 19:00:00 CDT, Duration: 30 day, Stop date: 0 12/31/15 18:59:00 CDT Notes: (Same as:MORPhine Sulfate) Start Date: 12/01/15 Stop Date: 12/05/15 Status: Discontinued Kent 10/325 oral tablet 1 tab, PO, Q6H, PRN for pain, X 15 day, # 60 tab, 0 Refill(s) Start Date: 12/05/15 Stop Date: 12/20/15 Status: Ordered Kent 10/325 oral tablet 1 tab, Route: PO, Drug Form: TAB, Dosing Weight 72.074, kg, Q6H, PRN Pain Score 4-6, Start date: 11/30/15 21:57:00 CDT, Duration: 30 day, Stop date: 12/30/15 21 :56:00 CDT Notes: Do not exceed 4gm/day of acetaminophen. (Same as: Kent 325/10) Start Date: 11/30/15 Stop Date: 12/02/15 Status: Discontinued Kent 10/325 oral tablet 1 tab, Route: PO, Drug Form: TAB, Dosing Weight 72.074, kg, Q4H, PRN Pain Score 1-5, Start date: 12/01/15 19:00:00 CDT, Duration: 30 day, Stop date: 12/31/15 18 :59:00 CDT Notes: Do not exceed 4gm/day of acetaminophen. (Same as: Kent 325/10) Start Date: 12/01/15 Stop Date: 12/05/15 Status: Discontinued Kent 10/325 oral tablet 2 tab, Route: PO, Drug Form: TAB, Dosing Weight 72.074, kg, Q4H, PRN Pain Score 6-10, Start date: 12/01/15 19:00:00 CDT, Duration: 30 day, Stop date: 12/31/15 1 8:59:00 CDT Notes: Do not exceed 4gm/day of acetaminophen. (Same as: Kent 325/10) Start Date: 12/01/15 Stop Date: 12/05/15 Status: Discontinued NS + KCL 20mEq/L 1000ml (Premix) 1,000 mL 1,000 mL, Rate: 50 ml/hr, Infuse over: 20 hr, Route: IV, Dosing Weight 72.074 kg , Total Volume: 1,000, Start date: 12/01/15 19:00:00 CDT, Duration: 30 day, Stop date: 12/31/15 18:59:00 CDT Notes: PREMIX IV - Do Not AlterWASTE: F/P - Sink; E - Municipal Trash Bin Start Date: 12/01/15 Stop Date: 12/05/15 Status: Discontinued ondansetron 4 mg, 2 mL, Route: IVP, Drug form: INJ, Q6H, Dosing Weight 72.074, kg, PRN Nause a & Vomiting, Start date: 12/01/15 0:33:00 CDT, Duration: 30 day, Stop date: 12/31/15 0:32:00 CDT Notes: (Same as: Leon) MEDICATION WASTE Product Size: 4 mgProduct Was brandon: ___ mg Start Date: 12/01/15 Stop Date: 12/02/15 Status: Discontinued ondansetron 4 mg, 1 tab, Route: PO, Drug form: TAB, Q8H, Dosing Weight 72.074, kg, PRN Nause a & Vomiting, Start date: 12/01/15 19:04:00 CDT, Duration: 30 day, Stop date: 12/31/15 19:03:00 CDT, .. Notes: (Same as: Zofran) Start Date: 12/01/15 Stop Date: 12/05/15 Status: Discontinued ondansetron (ANES) Route: IV, Drug form: INJ, ONCE, Stop date: 12/01/15 18:50:00 CDT Start Date: 12/01/15 Stop Date: 12/01/15 Status: Completed Pepcid 20 mg, 1 tab, Route: PO, Drug form: TAB, Daily, Dosing Weight 72.074, kg, Start date: 12/01/15 9:00:00 CDT, Duration: 30 day, Stop date: 12/30/15 9:00:00 CDT Notes: (Same as: Pepcid) Start Date: 12/01/15 Stop Date: 12/02/15 Status: Discontinued phenylephrine (ANES) Route: IV, Drug form: INJ, ONCE, Stop date: 12/01/15 16:30:00 CDT Start Date: 12/01/15 Stop Date: 12/01/15 Status: Completed pneumococcal 13-valent vaccine 0.5 mL, Route: IM, Drug Form: INJ, Daily, Start date: 12/05/15 21:00:00 CDT, Dur ation: 1 doses or times, Stop date: 12/05/15 21:00:00 CDT Notes: Lightly roll vial (DO NOT SHAKE) before administration. (Same as: Prevna r 13) Start Date: 12/05/15 Stop Date: 12/05/15 Status: Pending Complete pneumococcal 13-valent vaccine 0.5 mL, Route: IM, Drug Form: INJ, Daily, Start date: 12/01/15 9:00:00 CDT, Dura tion: 1 doses or times, Stop date: 12/01/15 9:00:00 CDT Notes: Lightly roll vial (DO NOT SHAKE) before administration. (Same as: Prevna r 13) Start Date: 12/01/15 Stop Date: 12/01/15 Status: Pending Complete potassium chloride 40 mEq, 2 tab, Route: PO, Drug form: ERTAB, ONCE, Dosing Weight 72.074, kg, Star t date: 12/04/15 18:00:00 CDT, Stop date: 12/04/15 18:00:00 CDT Notes: (Same as: K-Dur 20)"Do Not Crush" With food and full glass of water Start Date: 12/04/15 Stop Date: 12/04/15 Status: Completed potassium chloride 10 mEq, 100 mL, Route: IVPB, Drug form: INJ, Q1H, Dosing Weight 72.074, kg, Tota l Dose=40 meq, Start date: 12/04/15 11:00:00 CDT, Duration: 4 doses or times, St op date: 12/04/15 14:00:00 CDT, Peripheral Line Notes: Infuse at a rate of 10 mEq/hr.(Same as: KCL) Start Date: 12/04/15 Stop Date: 12/04/15 Status: Completed propofol (ANES) Route: IV, Drug form: INJ, ONCE, Stop date: 12/01/15 16:30:00 CDT Start Date: 12/01/15 Stop Date: 12/01/15 Status: Completed Protonix 40 mg, 1 tab, Route: PO, Drug form: ECTAB, Before Breakfast, Dosing Weight 72.07 4, kg, Start date: 12/03/15 7:30:00 CDT, Duration: 30 day, Stop date: 01/01/16 7 :30:00 CDT Notes: Tablet should not be chewed or crushed.(Same as: Protonix) Start Date: 12/03/15 Stop Date: 12/05/15 Status: Discontinued Protonix 40 mg, 1 tab, Route: PO, Drug form: ECTAB, Before Dinner, Start date: 12/02/15 1 6:30:00 CDT, Duration: 30 day, Stop date: 12/31/15 16:30:00 CDT Notes: Tablet should not be chewed or crushed.(Same as: Protonix) Start Date: 12/02/15 Stop Date: 12/05/15 Status: Discontinued Protonix + sodium chloride 0.9% 10 ml INJ (PF) 10 mL 40 mg, Route: IVP, Before Dinner, Dosing Weight 72.074, kg, Start date: 12/01/15 16:30:00 CDT, Duration: 30 day, Stop date: 12/30/15 16:30:00 CDT Notes: For IV push reconstitute with 10 ml 0.9% sodium chloride and push over 2 minutes. (Same as: Protonix) Start Date: 12/01/15 Stop Date: 12/02/15 Status: Discontinued QUEtiapine 200 mg, 2 tab, Route: PO, Drug form: TAB, BID, Dosing Weight 72.074, kg, Start d ate: 12/01/15 9:00:00 CDT, Duration: 30 day, Stop date: 12/30/15 17:00:00 CDT Notes: (Same as: SEROquel) Start Date: 12/01/15 Stop Date: 12/05/15 Status: Discontinued Robaxin 750 mg, 1 tab, Route: PO, Drug form: TAB, Q6H, Start date: 12/02/15 17:00:00 CDT , Duration: 30 day, Stop date: 01/01/16 11:00:00 CDT Notes: (Same as:Robaxin) Start Date: 12/02/15 Stop Date: 12/05/15 Status: Discontinued Robaxin 750 mg, 100 mL, Route: IV, Drug form: SOLN, Q6H, Dosing Weight 72.074, kg, Start date: 12/01/15 20:00:00 CDT, Duration: 30 day, Stop date: 12/31/15 14:00:00 CDT Notes: Do not refrigerate. Start Date: 12/01/15 Stop Date: 12/02/15 Status: Discontinued Robaxin-750 oral tablet 750 mg=1 tab, PO, Q6H, PRN Spasms, X 30 day, # 120 tab, 0 Refill(s) Start Date: 12/05/15 Stop Date: 01/04/16 Status: Ordered rocuronium (ANES) Route: IV, Drug form: INJ, ONCE, Stop date: 12/01/15 16:30:00 CDT Start Date: 12/01/15 Stop Date: 12/01/15 Status: Completed Saline Flush 0.9% 10 ml, Route: IVP, Drug Form: INJ, Dosing Weight 72.074, kg, PRN, PRN Line Flush , Start date: 12/01/15 0:33:00 CDT, Duration: 30 day, Stop date: 12/31/15 0:32:0 0 CDT Notes: Same as: BD Posiflush Sterile Start Date: 12/01/15 Stop Date: 12/05/15 Status: Discontinued senna 17.2 mg, 2 tab, Route: PO, Drug Form: TAB, Dosing Weight 72.074, kg, BID, PRN Co nstipation, Start date: 11/30/15 22:01:00 CDT, Duration: 30 day, Stop date: 12/14 09/28 22:00:00 CDT Notes: (Same as: Ria) Start Date: 11/30/15 Stop Date: 12/05/15 Status: Discontinued senna 8.6 mg oral tablet 8.6 mg, 1 tab, Route: PO, Drug Form: TAB, Dosing Weight 72.074, kg, BID, Start d ate: 12/02/15 9:00:00 CDT, Duration: 30 day, Stop date: 12/31/15 17:00:00 CDT Notes: (Same as: Senokot) Start Date: 12/02/15 Stop Date: 12/05/15 Status: Discontinued simethicone 80 mg, 1 tab, Route: CHEW, Drug form: CHEWTAB, TID, Dosing Weight 72.074, kg, MD N Gas, Start date: 12/01/15 19:00:00 CDT, Duration: 30 day, Stop date: 12/31/15 18:59:00 CDT Notes: (Same as: Kathy) Start Date: 12/01/15 Stop Date: 12/05/15 Status: Discontinued sodium chloride 0.9% 1000 ml INJ 1,000 mL 1,000 mL, Rate: 125 ml/hr, Infuse over: 8 hr, Route: IV, Dosing Weight 72.074 kg , Total Volume: 1,000, Start date: 12/01/15 0:33:00 CDT, Duration: 30 day, Stop date: 12/31/15 0:32:00 CDT Start Date: 12/01/15 Stop Date: 12/05/15 Status: Discontinued tramadol 50 mg oral tablet 50 mg, 1 tab, Route: PO, Drug form: TAB, Q6H, Dosing Weight 72.074, kg, PRN Pain Score 1-3, Start date: 12/02/15 12:24:00 CDT, Duration: 30 day, Stop date: 12/14 11/28 12:23:00 CDT Notes: Not to exceed 400mg/day. (Same As: Ultram) Start Date: 12/02/15 Stop Date: 12/05/15 Status: Discontinued trazodone 50 mg, 1 tab, Route: PO, Drug form: TAB, Bedtime, Dosing Weight 72.074, kg, PRN Sleep, Start date: 12/01/15 19:04:00 CDT, Duration: 30 day, Stop date: 12/31/15 19:03:00 CDT, .. Notes: (Same As: Mayr) Start Date: 12/01/15 Stop Date: 12/05/15 Status: Discontinued Tylenol 325 mg, 1 tab, Route: PO, Drug form: TAB, Q4H, Dosing Weight 72.074, kg, PRN For Temp > 101 F, Start date: 12/01/15 19:00:00 CDT, Duration: 30 day, Stop date: 12/31/15 18:59:00 CDT Notes: Do not exceed 4 gm/day. (Same as: Tylenol) Start Date: 12/01/15 Stop Date: 12/05/15 Status: Discontinued Valium 5 mg, Route: IM, Drug form: INJ, ONCE, Dosing Weight 76.818, kg, Priority: STAT, Start date: 11/30/15 15:18:00 CDT, Stop date: 11/30/15 15:18:00 CDT Start Date: 11/30/15 Stop Date: 11/30/15 Status: Completed vancomycin (ANES) (ANES) Route: IV, Drug form: INJ, Start date: 12/01/15 15:00:00 CDT, Stop date: 16:00:00 CDT Start Date: 12/01/15 Stop Date: 12/01/15 Status: Completed vancomycin (SCIP) + sodium chloride 0.9% INJ 250 mL 1,000 mg, Route: IVPB, Q12H, Dosing Weight 72.074, kg, Time Critical Medication, Start date: 12/01/15 21:00:00 CDT, Duration: 5 day, Stop date: 12/06/15 9:00:00 CDT Notes: TIME CRITICAL MEDICATION(Same As: Vancocin)Infusion rate< 1000 mg: infuse over 1 [id number] - 1500 mg: infuse over 1.5 [id number] - 2000 mg: infuse over 2 hours> 2001 mg: infuse over 2.5 hours MEDICATION WASTE Product Size: 1000 mgProduct Wasted: ___ mg Start Date: 12/01/15 Stop Date: 12/05/15 Status: Discontinued Zofran 4 mg, 2 mL, Route: IVP, Drug form: INJ, Q8H, Dosing Weight 72.074, kg, PRN Nause a, Start date: 11/30/15 21:56:00 CDT, Duration: 30 day, Stop date: 12/30/15 21:5 5:00 CDT Notes: (Same as: Zofran) MEDICATION WASTE Product Size: 4 mgProduct Was brandon: ___ mg Start Date: 11/30/15 Stop Date: 12/01/15 Status: Discontinued Zofran 4 mg, 2 mL, Route: IVP, Drug form: INJ, Q6H, Dosing Weight 72.074, kg, PRN Nause a & Vomiting, Start date: 12/02/15 12:49:00 CDT, Duration: 30 day, Stop date: 01/01/16 12:48:00 CDT Notes: (Same as: Zofran) MEDICATION WASTE Product Size: 4 mgProduct Was brandon: ___ mg Start Date: 12/02/15 Stop Date: 12/02/15 Status: Discontinued Zofran 4 mg, 2 mL, Route: IV, Drug form: INJ, Q8H, Dosing Weight 72.074, kg, PRN Nausea , Start date: 12/01/15 19:00:00 CDT, Duration: 30 day, Stop date: 12/31/15 18:59 :00 CDT Notes: (Same as: Zofran) MEDICATION WASTE Product Size: 4 mgProduct Was brandon: ___ mg Start Date: 12/01/15 Stop Date: 12/05/15 Status: Discontinued Results ELECTROLYTES 1 2 3 Most recent to oldest [Reference Range]: 137 mEq/L (12/05/15 4:41 AM) 136 mEq/L (12/04/15 3:38 AM) 137 mEq/L (12/03/15 3:50 AM) Sodium Lvl [135-145 mEq/L] 4.7 mEq/L (12/05/15 4:41 AM) 3.1 mEq/L *LOW* (12/04/15 3:38 AM) 4.2 mEq/L (12/03/15 3:50 AM) Potassium Lvl [3.5-5.1 mEq/L] 103 mEq/L (12/05/15 4:41 AM) 101 mEq/L (12/04/15 3:38 AM) 105 mEq/L (12/03/15 3:50 AM) Chloride Lvl [95-109 mEq/L] 28 mEq/L (12/05/15 4:41 AM) 27 mEq/L (12/04/15 3:38 AM) 27 mEq/L (12/03/15 3:50 AM) CO2 [24-32 mEq/L] 10.7 mEq/L (12/05/15 4:41 AM) 11.1 mEq/L (12/04/15 3:38 AM) 9.2 mEq/L *LOW* (12/03/15 3:50 AM) AGAP [10.0-20.0 mEq/L] CHEM PANEL 1 2 3 Most recent to oldest [Reference Range]: 0.46 mg/dL *LOW* (12/05/15 4:41 AM) 0.55 mg/dL (12/04/15 3:38 AM) 0.41 mg/dL 1 *LOW* (12/03/15 3:50 AM) Creatinine Lvl [0.50-1.40 mg/dL] 102 mL/min/1.73m2 2 *NA* (12/05/15 4:41 AM) 96 mL/min/1.73m2 3 *NA* (12/04/15 3:38 AM) 106 mL/min/1.73m2 4 *NA* (12/03/15 3:50 AM) eGFR 19 mg/dL (12/05/15 4:41 AM) 12 mg/dL (12/04/15 3:38 AM) 6 mg/dL *LOW* (12/03/15 3:50 AM) BUN [7-22 mg/dL] 41 *HI* (12/05/15 4:41 AM) 22 (12/04/15 3:38 AM) 15 (12/03/15 3:50 AM) B/C Ratio [6-25] 155 mg/dL *HI* (12/05/15 4:41 AM) 205 mg/dL *HI* (12/04/15 3:38 AM) 164 mg/dL *HI* (12/03/15 3:50 AM) Glucose Lvl [70-99 mg/dL] 5.3 g/dL *LOW* (12/05/15 4:41 AM) 6.5 g/dL (12/04/15 3:38 AM) 5.8 g/dL *LOW* (12/03/15 3:50 AM) Total Protein [6.4-8.4 g/dL] 2.4 g/dL *LOW* (12/05/15 4:41 AM) 2.8 g/dL *LOW* (12/04/15 3:38 AM) 2.4 g/dL *LOW* (12/03/15 3:50 AM) Albumin Lvl [3.5-5.0 g/dL] 2.9 g/dL (12/05/15 4:41 AM) 3.7 g/dL (12/04/15 3:38 AM) 3.4 g/dL (12/03/15 3:50 AM) Globulin [2.7-4.2 g/dL] 0.8 (12/05/15 4:41 AM) 0.8 (12/04/15 3:38 AM) 0.7 (12/03/15 3:50 AM) A/G Ratio [0.7-1.6] 7.4 mg/dL *LOW* (12/05/15 4:41 AM) 8.2 mg/dL *LOW* (12/04/15 3:38 AM) 8.0 mg/dL *LOW* (12/03/15 3:50 AM) Calcium Lvl [8.5-10.5 mg/dL] 3.0 mg/dL *HI* (12/05/15 4:41 AM) 4.5 mg/dL 5 *CRIT* (12/04/15 3:38 AM) Magnesium Lvl [1.8-2.4 mg/dL] 20 unit/L (12/05/15 4:41 AM) 27 unit/L (12/04/15 3:38 AM) 25 unit/L (12/03/15 3:50 AM) ALT [0-65 unit/L] 21 unit/L (12/05/15 4:41 AM) 34 unit/L (12/04/15 3:38 AM) 30 unit/L (12/03/15 3:50 AM) AST [0-37 unit/L] 62 unit/L (12/05/15 4:41 AM) 82 unit/L (12/04/15 3:38 AM) 69 unit/L (12/03/15 3:50 AM) Alk Phos [39-136 unit/L] 0.6 mg/dL (12/05/15 4:41 AM) 0.5 mg/dL (12/04/15 3:38 AM) 0.6 mg/dL (12/03/15 3:50 AM) Bili Total [0.2-1.3 mg/dL] 1Result Comment: reviewed all results 12/03/2015 04:23 svh 2Result Comment: The eGFR is calculated using [...] be mul tiplied by the estimated BMI. 4Result Comment: The eGFR is calculated using the [...] be mul tiplied by the estimated BMI. 5Result Comment: Critical Result(s) called to catherine moody at 0511 by [facility]. Read back OK. SPECIAL CHEMISTRY 1 2 3 Most recent to oldest [Reference Range]: 5.8 % *HI* (12/03/15 3:50 AM) Hgb A1C [<=5.6 %] TOXICOLOGY 1 2 3 Most recent to oldest [Reference Range]: TBD *NA* (12/03/15 7:42 PM) Vanco Tr TND 13.2 ug/ml *NA* (12/03/15 7:42 PM) Vanco Tr HEMATOLOGY 1 2 3 Most recent to oldest [Reference Range]: 4.8 K/CMM (12/05/15 4:41 AM) 7.6 K/CMM (12/04/15 3:38 AM) 5.1 K/CMM (12/03/15 12:33 PM) WBC [3.7-10.4 K/CMM] 2.73 M/CMM *LOW* (12/05/15 4:41 AM) 3.52 M/CMM *LOW* (12/04/15 3:38 AM) 2.88 M/CMM *LOW* (12/03/15 12:33 PM) RBC [4.20-5.40 M/CMM] 8.8 g/dL *LOW* (12/05/15 4:41 AM) 11.4 g/dL *LOW* (12/04/15 3:38 AM) 9.4 g/dL *LOW* (12/03/15 12:33 PM) Hgb [12.0-16.0 g/dL] 26.7 % *LOW* (12/05/15 4:41 AM) 34.2 % *LOW* (12/04/15 3:38 AM) 28.3 % *LOW* (12/03/15 12:33 PM) Hct [36.0-48.0 %] 97.9 fL (12/05/15 4:41 AM) 97.2 fL (12/04/15 3:38 AM) 98.5 fL *HI* (12/03/15 12:33 PM) MCV [80.0-98.0 fL] 32.4 pg *HI* (12/05/15 4:41 AM) 32.3 pg *HI* (12/04/15 3:38 AM) 32.8 pg *HI* (12/03/15 12:33 PM) MCH [27.0-31.0 pg] 33.1 g/dL (12/05/15 4:41 AM) 33.2 g/dL (12/04/15 3:38 AM) 33.3 g/dL (12/03/15 12:33 PM) MCHC [32.0-36.0 g/dL] 15.8 % *HI* (12/05/15 4:41 AM) 15.9 % *HI* (12/04/15 3:38 AM) 15.9 % *HI* (12/03/15 12:33 PM) RDW [11.5-14.5 %] 269 K/CMM (12/05/15 4:41 AM) 335 K/CMM (12/04/15 3:38 AM) 151 K/CMM (12/03/15 12:33 PM) Platelet [133-450 K/CMM] 7.2 fL *LOW* (12/05/15 4:41 AM) 7.4 fL (12/04/15 3:38 AM) 8.0 fL (12/03/15 12:33 PM) MPV [7.4-10.4 fL] 79.5 % *HI* (12/05/15 4:41 AM) 80.0 % *HI* (12/04/15 3:38 AM) 80.3 % *HI* (12/03/15 12:33 PM) Segs [45.0-75.0 %] 13.9 % *LOW* (12/05/15 4:41 AM) 9.6 % *LOW* (12/04/15 3:38 AM) 12.9 % *LOW* (12/03/15 12:33 PM) Lymphocytes [20.0-40.0 %] 6.4 % (12/05/15 4:41 AM) 10.4 % (12/04/15 3:38 AM) 5.7 % (12/03/15 12:33 PM) Monocytes [2.0-12.0 %] 0.7 % (12/03/15 12:33 PM) 0.1 % (12/02/15 4:22 AM) 0.4 % (12/01/15 4:03 AM) Eosinophils [0.0-4.0 %] 0.2 % (12/05/15 4:41 AM) 0.4 % (12/03/15 12:33 PM) 0.4 % (12/01/15 4:03 AM) Basophils [0.0-1.0 %] 3.8 K/CMM (12/05/15 4:41 AM) 6.1 K/CMM (12/04/15 3:38 AM) 4.1 K/CMM (12/03/15 12:33 PM) Segs-Bands # [1.5-8.1 K/CMM] 0.7 K/CMM *LOW* (12/05/15 4:41 AM) 0.7 K/CMM *LOW* (12/04/15 3:38 AM) 0.7 K/CMM *LOW* (12/03/15 12:33 PM) Lymphocytes # [1.0-5.5 K/CMM] 0.3 K/CMM (12/05/15 4:41 AM) 0.8 K/CMM (12/04/15 3:38 AM) 0.3 K/CMM (12/03/15 12:33 PM) Monocytes # [0.0-0.8 K/CMM] 0.1 K/CMM (11/30/15 3:38 PM) Eosinophils # [0.0-0.5 K/CMM] 12.8 seconds (11/30/15 3:38 PM) PT [12.0-14.7 seconds] 0.93 (11/30/15 3:38 PM) INR [0.85-1.17] 33.2 seconds (11/30/15 3:38 PM) PTT [22.9-35.8 seconds] Immunizations Given and Recorded Vaccine Date Status Refusal Reason influenza virus vaccine, inactivated 01/14/15 Given Not Given Vaccine Date Status Refusal Reason influenza virus vaccine, inactivated 01/14/15 Not Given Patient Refuses Procedures Procedure Date Related Diagnosis Body Site Cholecystectomy 2005 Hysterectomy 1973 Social History Social History Type Response Substance Abuse Use: None. Alcohol Never Smoking Status Former smoker; Exposure to Tobacco Smoke None; Cigarette Smoking Last 365 Days No; Reg Smoking Cessation Counseling No Assessment and Plan Extracted from: Title: Progress Note * Author: Polk Castromariaelena Hardy DO Date: 12/05/15 Impression and Plan 69 y/lo female with T12 fracture and syncope. 1) T12 fracture s/p T11-L1 fusion and vertebroplasty. per NSG. PT. hold plavix until cleared by NSG outpt 2) Constipation: resolved 3) COPD: stable 4) Syncope: workup negative 5) Mild dementia: stable. 6) Elevated BG's: SSI 7) Hypokalemia: repleted 8) Hypermagnesemia: improving 9) DVT proph: heparin BID d/c today Extracted from: Title: Clinical Document Author: Brad Mullen MD Date: 12/03/15 GI consult [facility] Completed: Saturday, DEC 03, 2015, 11:07 by Brad Mullen MD RM: [id number], [id number] (: 1945) F Attending: Destiny Sun MDPhone: Service: Internal Medicine Reason for Admission: GROUND LEVEL FALL, T12 BURST FRACTURE, MULTIPLE RIB Working DRG: Major chest trauma w CC Code status: Full Code [Ordered]Current diet: Isolation: None Documented Allergies: Geodon, Paxil, Effexor, Abilify, ARIPiprazole, ziprasidone, venlafaxine, risperiDONE, PARoxetine, lithium ASSESSMENT constipation anemia s/p back surgery s/p fall with fractures PLAN & TREATMENT miralax bid continue dulcolax supp will give MOM today no lactulose since it can cause gas distension d/w patient and nurse thanks for the consult HISTORY OF PRESENT ILLNESS 69-year-old female admitted s/p fall, back pain and left flank pain, T12 vertebral body fracture, rib fractures. now with constipation. has chronic constipationa nd only MOM works for her. denies any N/V or abdominal pain. denies any abdominal distension. PAST MEDICAL HISTORY 1. Bipolar disorder. 2. COPD. 3. Chronic pain. 4. Anxiety. PAST SURGICAL HISTORY 1. Cholecystectomy. 2. Hysterectomy. 3. ACDF or anterior cervical diskectomy and fusion. SOCIAL HISTORY She denies any tobacco, ethanol or illicit drug use. heavy smoker- quit smoking 3 years ago. OBJECTIVE alert, no distress no pallor, anicteric CVS- RRR Lungs- clear, no wheezing Ext- no edema/C/C Abdomen- soft, NT,ND, obese, BS present 24hr Labs 12/02 0530 Glucose ZSL694 H 12/02 0350 Sodium Xwh897 Potassium Lvl4.2 Chloride Mem938 CO227 AGAP9.2 L Glucose Hbu883 H Creatinine Lvl0.41 L BUN6 L B/C Ratio15 Total Protein5.8 L Albumin Lvl2.4 L Globulin3.4 A/G Ratio0.7 Calcium Lvl8.0 L ALT25 AST30 Alk Phos69 Bili Total0.6 mLES304 Hgb A1C5.8 H WBC3.7 RBC2.67 L Hgb8.8 L Hct25.7 L MCV96.3 MCH32.8 H MCHC34.1 RDW15.6 H Jbbazhfh458 MPV6.9 L Segs79.6 H Monocytes7.4 Lntcaqpsfac54.0 L Segs-Bands #2.9 Lymphocytes #0.5 L Monocytes #0.3 12/01 2036 Glucose CKK369 H 12/01 1753 Glucose CWH365 H 12/01 1211 Glucose PZA795 H Vickers still necessary (Yes/No): Line still necessary (Yes/No): VitalsTmp(F)OezxoTQVLYjB8JTT6 12/02 07:1598.483574/012606 2.0L/m 12/02 03:5798.917616/128040 2.0L/m 12/01 23:3198.589566/820103 2.0L/m 12/01 19:1898.029472/832024 2.0L/m 12/01 14:4898.802758/019603 2.0L/m 24 Hr Tmax: 98.7F (37.06c) at 12/01 11:28Vital Signs are the last 5 in the past 48 hours. DateWt(kg)Wt(lb)Ht(cm)Ht(in)Method 11/29 (initial) 76.82 169.00Estimated 60.02 63.00Stated I&ORecordInOutBal 11/2023hr Tot 451 800 -349 11/1923hr Tot 641 645 -316 Medications (37) Active Scheduled Meds (16): 12/01/15 QUEtiapine 200 mg PO BID 12/01/15 atorvastatin 20 mg PO Bedtime 12/01/15 calcium-vitamin D (calcium-vitamin D 600 mg-400 intl units oral tablet) 1 tab PO BID 12/01/15 (Suspended) clopidogrel 75 mg PO Daily 12/01/15 dexamethasone 4 mg IV [id number] 12/01/15 divalproex sodium (divalproex sodium 500 mg oral enteric coated tablet (Depakote)) 500 mg PO BID 12/02/15 docusate (Colace 100 mg oral capsule) 100 mg PO BID 12/03/15 heparin 5,000 unit SUB-Q Q12H 12/02/15 methocarbamol (Robaxin) 750 mg PO Q6H 12/01/15 metoprolol (metoprolol tartrate) 25 mg PO BID 12/01/15 montelukast 10 mg PO Bedtime 12/02/15 pantoprazole (Protonix) 40 mg PO Before Dinner 12/03/15 pantoprazole (Protonix) 40 mg PO Before Breakfast 12/02/15 polyethylene glycol 3350 (MiraLax) 17 gm PO TID 12/02/15 senna (senna 8.6 mg oral tablet) 8.6 mg PO BID 12/01/15 vancomycin + sodium chloride 0.9% INJ 250 mL (vancomycin (SCIP) + sodium chloride 0.9% INJ 250 mL) 1,000 mg IVPB Q12H 250 ml/hr Unscheduled Meds (2): 10/06/15 acetaminophen (Ofirmev) 1,000 mg IV ONCALL 400 ml/hr 10/06/15 ceFAZolin 2 gm IVPB PRE OP 100 ml/hr PRN Meds (17): 12/01/15 acetaminophen-hydrocodone (acetaminophen-hydrocodone 325 mg-5 mg oral tablet) 1 tab PO Q4H 12/01/15 acetaminophen-hydrocodone (Kent 10/325 oral tablet) 2 tab PO Q4H 12/01/15 acetaminophen-hydrocodone (Kent 10/325 oral tablet) 1 tab PO Q4H 11/30/15 acetaminophen 650 mg PO Q6H 12/01/15 acetaminophen (Tylenol) 325 mg PO Q4H 12/02/15 bisacodyl (Dulcolax Laxative) 10 mg MD BID 12/01/15 diphenhydrAMINE (Benadryl) 25 mg PO TID 12/01/15 docusate 100 mg PO BID 12/01/15 morphine Sulfate 2 mg IVP Q2H 12/02/15 morphine Sulfate 4 mg IVP Q2H 12/01/15 ondansetron (Zofran) 4 mg IV Q8H 12/01/15 ondansetron 4 mg PO Q8H 11/30/15 senna 17.2 mg PO BID 12/01/15 simethicone 80 mg CHEW TID 12/01/15 sodium chloride (Saline Flush 0.9%) 10 ml IVP PRN 12/02/15 tramadol (tramadol 50 mg oral tablet) 50 mg PO Q6H 12/01/15 trazodone 50 mg PO Bedtime One Time Meds: None Continuous Infusions (2): 12/01/15 NS + KCL 20mEq/L 1000ml (Premix) 1,000 mL 1,000 mL 50 ml/hr 12/01/15 sodium chloride 0.9% 1000 ml INJ 1,000 mL 1,000 mL 125 ml/hr Labs (Last four charted values) WBC 3.7(DEC 02)4.5(DEC 01)3.8(NOV 30)3.9(NOV 29) Hgb L 8.8(DEC 02)L 11.2(DEC 01)13.1(NOV 30)13.3(NOV 29) Hct L 25.7(DEC 02)L 33.9(DEC 01)40.2(NOV 30)39.9(NOV 29) Plt 223(DEC 02)289(DEC 01)254(NOV 30)245(NOV 29) Na 137(DEC 02)136(DEC 01)136(NOV 30)L 134(NOV 29) K 4.2(DEC 02)4.1(DEC 01)3.8(NOV 30)3.6(NOV 29) CO2 27(DEC 02)26(DEC 01)L 23(NOV 30)26(NOV 29) Cl 105(DEC 02)99(DEC 01)99(NOV 30)99(NOV 29) Cr L 0.41(DEC 02)0.63(DEC 01)L 0.49(NOV 30)0.54(NOV 29) BUN L 6(DEC 02)9(DEC 01)8(NOV 30)9(NOV 29) Glucose Random H 164(DEC 02)H 223(DEC 01)H 139(NOV 30)H 112(NOV 29) Ca L 8.0(DEC 02)L 8.4(DEC 01)8.9(NOV 30)8.7(NOV 29) PT 12.8(NOV 29) INR 0.93(NOV 29) PTT 33.2(NOV 29) Extracted from: Title: Clinical Document Author: Herminio Jack MD Date: 12/01/15 Patient's name: Nikki Pleitez Date of Operation: 12/01/2015 Operation: T11-L1 posterolateral arthrodesis T11, L1 and L2, placement of pedicle screws T11 and L1 augmentation of screws with cement Use of intra operative C-arm Use of frameless sterotaxy ( o-arm) placement of autograft and allograft Indications: T12 Burst fracture Preoperative Diagnosis T12 burst fracture on Ct and MRI after a fall Postoperative Diagnosis Same Attending: Herminio Jack Co-Surgeon: none Asst: none Blood Loss 75 cc Drains suprafacial drain Electrophysiologic Monitoring: SSEPs and nerve monitoring Specimens: None Complications: None Implants: Screws: T11 5.5 x40 mm L1 5.5 x35 mm L2 5.5 x40 mm 2 5.5 mm rods Procedure in detail: Mrs pleitez was brought to the operating room. She was intubated by anesthesia team. An art line and an extra IV was placed by anesthesia team. We very carefully flipped her and placed her in the prone position on connie table with hip pads . All of her pressure points were appropriately padded and taped. Neuomonitoring confirmed good SSEPs and Motor evoked potentials. Xrays were taken to confirm the incision site. Skin was opened with 10-blade. We used the bovie to dissect the tissue in supra facial area. . WE decided to place our screws percutaneously. Using C arm in AP and lateral fashion, we delineated the pedicles and marked our entry point percutaneosuly. Once the needles were placed in the pedicles at bilateral T11, T12 on the right and bilateral L1 . We did notice that the pedicles were weak and the bone was brittle. we then used the O-arm to confirm our location. We then used the cement to augment our screws and after placing the cement during live fluoroscopy, we placed our screws. We then used the tubular system to get access to the facet joints . After we got access to the joints, we drilled the rib articulations and transverse processes to promote arthrodesis from T11-L1 we then placed our rods and final tightened our screws. we irrigated with bacitracin filled irrigation. We placed vancomycin powder in the subfacial space. we closed the fascia with 0-vicryl, the subcuteneous tissue with 2-0 and 3-0 vicryl and the skin with nathaniel. Dressing was placed. Pt was flipped into supine position. SHe was transferred to PACU and regular floor. 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 Ordered carotid doppler and TTE. Cotninue telemetry -- PPI -- Resume home psych meds DVT ppx: SQ lovenox initiate it in evening in case she needs sugery for her T12 fracture
--- OUTSIDE RECORDS SUMMARY | 2018-07-24 14:55 | XMS REPORT | Summary of Care ---
Author Author [facility] Outpatient Imaging [facility] [place] Address Unknown Phone Unavailable Encounter JAYDA Sheth(FIN) [id number] Date(s): 12/21/15 - 12/21/15 [facility] Outpatient [facility] [place] [address] [place] [phone]- Discharge Disposition: Home or Self Care Attending [...]
--- OUTSIDE RECORDS SUMMARY | 2018-07-24 14:55 | XMS REPORT | Summary of Care ---
Author Author [facility] Outpatient Imaging [facility] Outpatient Imaging [place] Address Unknown Phone Unavailable Encounter JAYDA Sheth(FIN) [id number] Date(s): 03/14/15 - 03/14/15 [facility] Outpatient Imaging [place] [address] [place] [address] Discharge Disposition: Home Attending Physician: Herminio Jack [...]
--- OUTSIDE RECORDS SUMMARY | 2018-07-24 14:55 | XMS REPORT | Summary of Care ---
Author Author [facility] Outpatient Imaging [facility] Outpatient [facility] [place] Address Unknown Phone Unavailable Encounter JAYDA Sheth(FIN) [id number] Date(s): 03/05/16 - 03/05/16 [facility] Outpatient Imaging [place] [address] [place] [place] [phone]- Discharge Disposition: Home or Self Care Attending [...]
--- OUTSIDE RECORDS SUMMARY | 2018-07-24 14:55 | XMS REPORT | Summary of Care ---
Author Author [facility] Outpatient Imaging [facility] Outpatient Imaging [place] Address Unknown Phone Unavailable Encounter JAYDA Sheth(FIN) [id number] Date(s): 03/16/16 - 03/16/16 [facility] Outpatient Imaging [place] [address] [place] [phone]- Discharge Disposition: Home or Self Care Attending [...]
--- OUTSIDE RECORDS SUMMARY | 2018-07-24 14:55 | XMS REPORT | Summary of Care ---
Author Author [facility] Organization [facility] Address Unknown Phone Unavailable Encounter JAYDA Sheth(REAGAN) [id number] Date(s): 05/30/15 - 05/30/15 [facility] [address] [place] [address]- Discharge Disposition: Home Attending Physician: Herminio Jack MD Admitting Physician: Herminio Jack MD Vital Signs No [...]
--- OUTSIDE RECORDS SUMMARY | 2018-07-24 14:55 | XMS REPORT | Summary of Care ---
Author Author [facility] [place] Address Unknown Phone Unavailable Encounter JAYDA Sheth(FIN) [id number] Date(s): 01/24/15 - 01/24/15 [facility] [place] [address] [place] [address] Discharge Disposition: Home Attending Physician: Herminio Jack [...]
[2018-07-24] MEDS ORDERED: MORPHINE SULFATE 2 MG/ML SYR 1ML IM STA (15:05)
[2018-07-24] MEDS ORDERED: ONDANSETRON HCL 4 MG ORAL DISINTEGRATING TAB PO ONE (15:15)
[2018-07-24] MEDS ORDERED: DIAZEPAM 2 MG TAB PO ONE (15:15)
[2018-07-24] MEDS ORDERED: DIAZEPAM 5 MG TAB PO NR (15:30)
[2018-07-24] MEDS ORDERED: MORPHINE SULFATE INJ 4 MG/ML INJ 1ML IV NR (15:30)
[2018-07-24] MEDS ORDERED: MORPHINE SULFATE INJ 4 MG/ML INJ 1ML IM NR (15:30)
[2018-07-24 17:01] VITALS: BP 137/89
== END 2018-07-24 17:00 | disposition home or self-care (01) ==
LOC: ER 14:49
DX: M54.2 Cervicalgia (principal); S16.1XXA Strain of muscle, fascia and tendon at neck level, initial encounter; M62.838 Other muscle spasm; Y93.84 Activity, sleeping; I10 Essential (primary) hypertension
CPT/HCPCS: 99282; J2270; Q0162

== ENCOUNTER 2018-07-25 15:48 | Emergency (ER) | payer MEDICARE ==
[~2018-07-25] VITALS: Ht 165.1 cm; Wt 51.7 kg
--- NOTE | 2018-07-25 18:09 | NUR ---
Called CT to inquire of results. Stated will call the radiologist
--- NOTE | 2018-07-25 18:21 | Diagnostic Imaging Report ---
History:Fall, hit the head Comparison studies:None Technique: Axial images were obtained from the skull base to the vertex. Coronal and sagittal images reconstructed from the axial data. Intravenous contrast: None Dose modulation, iterative reconstruction, and/or weight based adjustment of the mA/kV was utilized to reduce the radiation dose to as low as reasonably achievable. Findings: Scalp/skull: No abnormalities. Extra-axial spaces: No masses. No fluid collections. Brain sulci: Mildly prominent. Ventricles: Mild compensatory dilatation. No hydrocephalus. Parenchyma: Scattered hypodensities in the supratentorial white matter are small vessel ischemic changes. Small chronic lacunar infarcts at the right striatocapsular and left central deborah. No masses, hemorrhage, acute or chronic cortical vascular insults. Sellar/suprasellar region: No abnormalities. Craniocervical junction: Patent foramen magnum. No Chiari one malformation. Incidental findings: Atherosclerotic calcifications in the carotid siphons and vertebral arteries . Impression: No acute abnormalities. Chronic findings: 1. Mild generalized volume loss. 2. Mild to moderate supratentorial white matter small vessel ischemic changes. Signed by: DR Real Cantu M.D. on 07/25/2018 6:17 PM
--- NOTE | 2018-07-25 18:30 | Diagnostic Imaging Report ---
History: Fall, hit head Comparison studies: None Technique: Axial images were obtained through the cervical region.. Coronal and sagittal images reconstructed from the axial data.. Intravenous contrast: None Dose modulation, iterative reconstruction, and/or weight based adjustment of the mA/kV was utilized to reduce the radiation dose to as low as reasonably achievable. Findings: Fractures: None. Soft tissues: No gross abnormalities. Atlantoaxial articulation: Degenerative changes without acute abnormality. Alignment: Grade 1 anterolisthesis of C4 over C5 and grade 2 anterolisthesis of C7 over T1, likely degenerative . No scoliosis. Cervicomedullary junction: No abnormalities. The foramen magnum is patent. Vertebrae: No infection or neoplasm. Degenerative changes: Diffuse disc degeneration with obliterated intervertebral space from C3 through T1. At C3-4, posterior disc osteophyte, bilateral uncinate process hypertrophy and mild canal stenosis, moderate right and severe left foraminal narrowing. At C4-5, bilateral uncinate process hypertrophy and facet hypertrophy results in severe bilateral narrowing without significant canal stenosis. At C5-6, posterior disc osteophyte complex bilateral uncinate processes and facet hypertrophy resulting in mild canal stenosis and severe bilateral foraminal narrowing. At C6-7, bilateral uncinate process hypertrophy and facet hypertrophy results in no significant canal stenosis, moderate right and left narrowing. At C7-T1 bilateral uncinate process hypertrophy and facet hypertrophy along with results in moderate bilateral foraminal narrowing. Atherosclerotic calcifications of the carotid bulbs. IMPRESSION: 1. No acute cervical spine abnormalities. Degenerative changes as described above. 2. Cannot exclude ligament, spinal cord and or vascular abnormalities on the basis of this examination. Signed by: DR Real Cantu M.D. on 07/25/2018 6:27 PM
== END 2018-07-25 18:40 | disposition home or self-care (01) ==
LOC: ER 15:48
DX: M54.2 Cervicalgia (principal); S16.1XXA Strain of muscle, fascia and tendon at neck level, initial encounter; W01.0XXA Fall on same level from slipping, tripping and stumbling without subsequent striking against object, initial encounter; Y93.01 Activity, walking, marching and hiking; I10 Essential (primary) hypertension
CPT/HCPCS: 70450; 72125; 99283

== ENCOUNTER 2020-08-29 11:47 | Inpatient (IN) | payer MEDICARE ==
[~2020-08-29] VITALS: Ht 165.1 cm; Wt 51.7 kg
[2020-08-29] MEDS ORDERED: ONDANSETRON HCL INJ 2MG/ML 2ML 2 MG/ML VIAL IV STA (16:18)
[2020-08-29] MEDS ORDERED: SODIUM CHLORIDE 0.9% 1000ML 1,000 ML IV STA (16:18)
[2020-08-29] MEDS ORDERED: PANTOPRAZOLE 40 MG 10ML VIAL IV ONE (16:45)
[2020-08-29 17:39] LABS: BASOPHILS # (AUTO) 0.1 (0.0-0.1); BASOPHILS % 0.2 % (0.0-1.0); EOSINOPHILS % 0.1 % (0.0-6.0); HEMATOCRIT 42.7 % (34.2-44.1); HEMOGLOBIN 14.8 g/dL (12.0-16.0); LYMPHOCYTES # (AUTO) 2.1 (1.0-3.2); LYMPHOCYTES % 10.4 % (18.0-39.1); MEAN CORPUSCULAR HEMOGLOBIN 32.7 pg (28-32); MEAN CORPUSCULAR HGB CONC 34.7 g/dL (31-35); MEAN CORPUSCULAR VOLUME 94.3 fL (81-99); MONOCYTES # (AUTO) 1.3 (0.2-0.8); MONOCYTES % 6.5 % (4.4-11.3); NEUTROPHILS # (AUTO) 16.8 (2.1-6.9); NEUTROPHILS % 81.8 % (38.7-80.0); PLATELET COUNT 299 x10e3/uL (140-360); RED BLOOD COUNT 4.53 x10e6/uL (3.6-5.1); RED CELL DISTRIBUTION WIDTH 12.8 % (11.7-14.4)
[2020-08-29 17:41] LABS: COLOR,URINE AMBER (YELLOW)
[2020-08-29 17:42] LABS: CLARITY,URINE HAZY (CLEAR); KETONES,URINE TRACE (NEGATIVE); LEUKOCYTE ESTERASE ,URINE MODERATE (NEGATIVE); NITRITE,URINE NEGATIVE (NEGATIVE); PROTEIN,URINE DIPSTICK 1+ (NEGATIVE); URINE UROBILINOGEN 0.2 mg/dL (0.2 - 1)
[2020-08-29 17:54] LABS: BACTERIA,URINE MANY /HPF; EPITHELIAL CELLS,URINE FEW /LPF; RBC,URINE 0-5 /HPF (0-5)
[2020-08-29 17:55] LABS: INR 0.94; PROTHROMBIN TIME 13.2 seconds (11.9-14.5)
[2020-08-29 17:56] LABS: PARTIAL THROMBOPLASTIN TIME 26.1 seconds (23.8-35.5)
[2020-08-29 18:01] LABS: ALBUMIN 2.9 g/dL (3.5-5.0); ALBUMIN/GLOBULIN RATIO 0.8 (0.8-2.0); ANION GAP 21.8 mmol/L (8-16); CALCIUM 9.7 mg/dL (8.4-10.2); CREATININE, SERUM 1.94 mg/dL (0.57-1.11); MAGNESIUM 2.5 MG/DL (1.3-2.1); POTASSIUM 3.8 mmol/L (3.5-5.1)
[2020-08-29 18:09] LABS: CREATINE KINASE MB 17.6 ng/mL (0-5.0)
[2020-08-29] MEDS ORDERED: CEFEPIME HCL 1 GM VIAL IV SCH (18:45)
[2020-08-29] MEDS: CEFEPIME HCL 1GM 1 GM in SODIUM CHLORIDE 0.9% 50ML 50 ML IV SCH ×2 (18:45→18:55)
[2020-08-29] MEDS ORDERED: SODIUM CHLORIDE 0.9% 1000ML 1,000 ML IV ONE (19:00)
[2020-08-29] MEDS ORDERED: VANCOMYCIN 1GM/NS 250 ML 250 ML IV ONE (19:20)
[2020-08-29] MEDS ORDERED: MULTIVITAMINS- 12 INJECTION 10 ML, FOLIC ACID MDV 5 MG, THIAMINE HCL INJ 100 MG in SODI... IV ONE ×2 (19:30→23:45)
[2020-08-29] MEDS ORDERED: ONDANSETRON HCL INJ 2MG/ML 2ML 2 MG/ML VIAL IV PRN (19:30)
[2020-08-29] MEDS ORDERED: LORAZEPAM INJ 2 MG/ML VIAL IV PRN (19:30)
[2020-08-29] MEDS: FAMOTIDINE 20 MG/2 ML VIAL IV SCH (23:51)
[2020-08-30] VITALS (7 sets, daily range): BP systolic 117–124; BP diastolic 70–80
[2020-08-30 01:38] LABS: CREATINE KINASE MB 11.3 ng/mL (0-5.0)
[2020-08-30] MEDS: SODIUM CHLORIDE 0.9% 1000ML 1,000 ML IV SCH ×5 (02:00→21:11)
[2020-08-30 05:50] LABS: BASOPHILS % 0.3 % (0.0-1.0); EOSINOPHILS # (AUTO) 0.1 (0.0-0.4); EOSINOPHILS % 0.4 % (0.0-6.0); HEMATOCRIT 34.9 % (34.2-44.1); HEMOGLOBIN 11.8 g/dL (12.0-16.0); LYMPHOCYTES # (AUTO) 2.1 (1.0-3.2); LYMPHOCYTES % 15.5 % (18.0-39.1); MEAN CORPUSCULAR HGB CONC 33.8 g/dL (31-35); MEAN CORPUSCULAR VOLUME 94.6 fL (81-99); MONOCYTES % 7.6 % (4.4-11.3); NEUTROPHILS # (AUTO) 10.4 (2.1-6.9); NEUTROPHILS % 75.5 % (38.7-80.0); PLATELET COUNT 250 x10e3/uL (140-360); RED BLOOD COUNT 3.69 x10e6/uL (3.6-5.1); RED CELL DISTRIBUTION WIDTH 12.9 % (11.7-14.4)
[2020-08-30 06:10] LABS: ALBUMIN 2.2 g/dL (3.5-5.0); ALBUMIN/GLOBULIN RATIO 0.8 (0.8-2.0); ANION GAP 15.3 mmol/L (8-16); CALCIUM 7.9 mg/dL (8.4-10.2); CREATININE, SERUM 1.42 mg/dL (0.57-1.11); MAGNESIUM 2.1 MG/DL (1.3-2.1); POTASSIUM 3.3 mmol/L (3.5-5.1)
[2020-08-30 06:26] LABS: CREATINE KINASE MB 5.5 ng/mL (0-5.0)
[2020-08-30] MEDS ORDERED: POLYETHYLENE GLYCOL 3350 17 GM PACK PO PRN (07:00)
[2020-08-30] MEDS ORDERED: DOCUSATE SODIUM 100 MG CAP PO PRN (07:00)
[2020-08-30] MEDS: FAMOTIDINE 20 MG/2 ML VIAL IV SCH ×2 (08:31→19:30)
[2020-08-30] MEDS ORDERED: NAPROXEN250 MG PO (08:35)
[2020-08-30] MEDS ORDERED: ULTRAM 50MG50 MG PO (08:50)
[2020-08-30] MEDS ORDERED: ENALAPRIL MALEA20 MG PO (08:50)
[2020-08-30] MEDS ORDERED: BUPROPION XL150 MG PO (08:51)
[2020-08-30] MEDS ORDERED: LEVOTHYROXINE25 MCG PO (08:51)
[2020-08-30] MEDS ORDERED: ACETAMINOPHEN 325 MG TAB PO PRN (09:45)
[2020-08-30] MEDS: BUPROPION HCL 150 MG TABCR PO SCH (11:18)
[2020-08-30 15:01] LABS: CREATINE KINASE MB 4.4 ng/mL (0-5.0)
[2020-08-30] MEDS: CEFEPIME HCL 1GM 1 GM in SODIUM CHLORIDE 0.9% 50ML 50 ML IV SCH (17:51)
[2020-08-31] VITALS (8 sets, daily range): BP systolic 90–165; BP diastolic 60–90
[2020-08-31] MEDS: SODIUM CHLORIDE 0.9% 1000ML 1,000 ML IV SCH ×5 (00:52→19:56)
[2020-08-31] MEDS: LEVOTHYROXINE SODIUM 25 MCG TABLET PO SCH (05:49)
[2020-08-31] MEDS: CEFEPIME HCL 1GM 1 GM in SODIUM CHLORIDE 0.9% 50ML 50 ML IV SCH ×2 (05:50→18:50)
[2020-08-31 09:00] LABS: BASOPHILS % 0.3 % (0.0-1.0); EOSINOPHILS # (AUTO) 0.1 (0.0-0.4); EOSINOPHILS % 0.9 % (0.0-6.0); HEMATOCRIT 35.2 % (34.2-44.1); LYMPHOCYTES # (AUTO) 1.9 (1.0-3.2); LYMPHOCYTES % 18.6 % (18.0-39.1); MEAN CORPUSCULAR HEMOGLOBIN 32.3 pg (28-32); MEAN CORPUSCULAR HGB CONC 34.1 g/dL (31-35); MEAN CORPUSCULAR VOLUME 94.6 fL (81-99); MONOCYTES # (AUTO) 0.7 (0.2-0.8); MONOCYTES % 6.6 % (4.4-11.3); NEUTROPHILS # (AUTO) 7.4 (2.1-6.9); NEUTROPHILS % 72.8 % (38.7-80.0); PLATELET COUNT 268 x10e3/uL (140-360); RED BLOOD COUNT 3.72 x10e6/uL (3.6-5.1); RED CELL DISTRIBUTION WIDTH 12.8 % (11.7-14.4)
[2020-08-31 09:22] LABS: ANION GAP 13.1 mmol/L (8-16); CALCIUM 8.2 mg/dL (8.4-10.2); CREATININE, SERUM 1.14 mg/dL (0.57-1.11); POTASSIUM 3.1 mmol/L (3.5-5.1)
[2020-08-31] MEDS: FAMOTIDINE 20 MG/2 ML VIAL IV SCH ×2 (09:34→19:30)
[2020-08-31] MEDS: BUPROPION HCL 150 MG TABCR PO SCH (09:34)
[2020-08-31] MEDS ORDERED: ONDANSETRON HCL 4 MG ORAL DISINTEGRATING TAB PO PRN (17:45)
[2020-09-01 01:38] VITALS: BP 156/85
[2020-09-01] MEDS: SODIUM CHLORIDE 0.9% 1000ML 1,000 ML IV SCH (05:27)
[2020-09-01 05:38] VITALS: BP 153/98
[2020-09-01] MEDS: CEFEPIME HCL 1GM 1 GM in SODIUM CHLORIDE 0.9% 50ML 50 ML IV SCH (05:52)
[2020-09-01] MEDS: LEVOTHYROXINE SODIUM 25 MCG TABLET PO SCH (05:52)
[2020-09-01 07:14] LABS: BASOPHILS # (AUTO) 0.1 (0.0-0.1); BASOPHILS % 0.6 % (0.0-1.0); EOSINOPHILS # (AUTO) 0.1 (0.0-0.4); EOSINOPHILS % 1.6 % (0.0-6.0); HEMATOCRIT 35.3 % (34.2-44.1); HEMOGLOBIN 11.8 g/dL (12.0-16.0); LYMPHOCYTES % 22.4 % (18.0-39.1); MEAN CORPUSCULAR HEMOGLOBIN 32.2 pg (28-32); MEAN CORPUSCULAR HGB CONC 33.4 g/dL (31-35); MEAN CORPUSCULAR VOLUME 96.2 fL (81-99); MONOCYTES # (AUTO) 0.7 (0.2-0.8); MONOCYTES % 8.3 % (4.4-11.3); NEUTROPHILS # (AUTO) 5.8 (2.1-6.9); NEUTROPHILS % 65.7 % (38.7-80.0); PLATELET COUNT 246 x10e3/uL (140-360); RED BLOOD COUNT 3.67 x10e6/uL (3.6-5.1); RED CELL DISTRIBUTION WIDTH 12.8 % (11.7-14.4)
[2020-09-01 07:31] LABS: ANION GAP 12.5 mmol/L (8-16); CALCIUM 8.1 mg/dL (8.4-10.2); CREATININE, SERUM 0.93 mg/dL (0.57-1.11); POTASSIUM 3.5 mmol/L (3.5-5.1)
[2020-09-01 07:45] VITALS: BP 175/92
[2020-09-01 09:07] VITALS: BP 175/92
[2020-09-01] MEDS: FAMOTIDINE 20 MG/2 ML VIAL IV SCH (09:12)
[2020-09-01] MEDS: BUPROPION HCL 150 MG TABCR PO SCH (09:12)
[2020-09-01 11:07] VITALS: BP 149/85
[2020-09-01] MEDS ORDERED: SODIUM CHLORIDE 0.9% 1000ML 1,000 ML IV ONE ×2 (12:00→13:00)
[2020-09-01] MEDS ORDERED: FAMOTIDINE 20 MG TAB PO SCH (16:30)
== END 2020-09-01 13:30 | disposition home or self-care (01) | DRG 872 ==
LOC: ER 12:21 → ERHOLD 20:59 → MED/SURG3 08-30 06:43
PROVIDERS: ADMIT Internal Medicine; ATTEND Internal Medicine
DX: A41.51 Sepsis due to Escherichia coli [E. coli] (principal); N39.0 Urinary tract infection, site not specified; M62.82 Rhabdomyolysis; N17.9 Acute kidney failure, unspecified; K57.90 Diverticulosis of intestine, part unspecified, without perforation or abscess without bleeding; N20.0 Calculus of kidney; Z20.822 Contact with and (suspected) exposure to COVID-19; E86.0 Dehydration; R65.20 Severe sepsis without septic shock
CPT/HCPCS: 36415; 71045; 72070; 72110; 74176; 80048; 80053; 81001; 82550; 82553; 83605; 83690; 83735; 84484; 85025; 85610; 85730; 87040; 87086; 87186; 93005; 97139; 99284; J0692; J2060; J2405; J3370; J3411; J7030; U0002

== ENCOUNTER 2020-09-08 16:19 | Inpatient (IN) | payer MEDICARE ==
[~2020-09-08] VITALS: Ht 165.1 cm; Wt 51.7 kg
[~2020-09-08 16:19] MED LIST: BUPROPION XL150 MG PO; ENALAPRIL MALEA20 MG PO; LEVOTHYROXINE25 MCG PO; NAPROXEN250 MG PO; ULTRAM 50MG50 MG PO
[2020-09-08] MEDS ORDERED: SODIUM CHLORIDE 0.9% 1000ML 1,000 ML IV STA ×2 (16:29→18:54)
[2020-09-08] MEDS ORDERED: ACETAMINOPHEN 325 MG TAB PO ONE (16:29)
[2020-09-08] MEDS ORDERED: ASPIRIN 81 MG CHEW TAB PO ONE (16:30)
[2020-09-08 16:55] LABS: BASOPHILS # (AUTO) 0.1 (0.0-0.1); BASOPHILS % 0.4 % (0.0-1.0); HEMATOCRIT 40.3 % (34.2-44.1); HEMOGLOBIN 13.8 g/dL (12.0-16.0); LYMPHOCYTES # (AUTO) 0.4 (1.0-3.2); LYMPHOCYTES % 1.6 % (18.0-39.1); MEAN CORPUSCULAR HEMOGLOBIN 32.7 pg (28-32); MEAN CORPUSCULAR HGB CONC 34.2 g/dL (31-35); MEAN CORPUSCULAR VOLUME 95.5 fL (81-99); MONOCYTES # (AUTO) 0.3 (0.2-0.8); MONOCYTES % 1.1 % (4.4-11.3); NEUTROPHILS # (AUTO) 24.6 (2.1-6.9); NEUTROPHILS % 95.8 % (38.7-80.0); PLATELET COUNT 334 x10e3/uL (140-360); RED BLOOD COUNT 4.22 x10e6/uL (3.6-5.1); RED CELL DISTRIBUTION WIDTH 13.1 % (11.7-14.4)
[2020-09-08] MEDS: PIPERACILLIN/TAZOBACTAM 3.375 GM in SODIUM CHLORIDE 0.9% 50ML 50 ML IV SCH ×2 (17:00→17:15)
[2020-09-08] MEDS ORDERED: IBUPROFEN 600 MG TAB ONE (17:08)
[2020-09-08 17:13] LABS: ALANINE AMINOTRANSFERASE 23 IU/L (0-55); ALBUMIN 3.5 g/dL (3.5-5.0); ALBUMIN/GLOBULIN RATIO 1.1 (0.8-2.0); ALKALINE PHOSPHATASE 80 IU/L (40-150); ANION GAP 21.4 mmol/L (8-16); BLOOD UREA NITROGEN 7 mg/dL (7-26); BUN/CREATININE RATIO 9 (6-25); CARBON DIOXIDE 21 mmol/L (22-29); CHLORIDE 97 mmol/L (98-107); CREATINE KINASE 84 IU/L (29-168); CREATININE, SERUM 0.82 mg/dL (0.57-1.11); EST GLOMERULAR FILTRATION RATE > 60 ML/MIN (60-); GLUCOSE 90 mg/dL (74-118); POTASSIUM 3.4 mmol/L (3.5-5.1); SODIUM 136 mmol/L (136-145)
[2020-09-08] MEDS ORDERED: IBUPROFEN 600 MG TAB PO STA (17:16)
[2020-09-08 17:20] LABS: B-TYPE NATRIURETIC PEPTIDE2 477.3 pg/mL (0-100)
[2020-09-08] MEDS ORDERED: SODIUM CHLORIDE 0.9% 1000ML 1,000 ML IV ONE (17:30)
[2020-09-08 17:34] LABS: CLARITY,URINE SL CLOUDY (CLEAR); COLOR,URINE STRAW (YELLOW); KETONES,URINE 2+ (NEGATIVE); LEUKOCYTE ESTERASE ,URINE NEGATIVE (NEGATIVE); NITRITE,URINE NEGATIVE (NEGATIVE); PROTEIN,URINE DIPSTICK TRACE (NEGATIVE); URINE UROBILINOGEN 1 mg/dL (0.2 - 1)
[2020-09-08 17:45] LABS: AMORPHOUS SEDIMENT,URINE MODERATE (FEW); BACTERIA,URINE FEW /HPF; RBC,URINE 0-5 /HPF (0-5); WBC,URINE (MAN) 0-5 /HPF (0-5)
[2020-09-08] MEDS ORDERED: IOPAMIDOL 370 MG/ML 200 ML INFUS..BTL INJ ONE (19:48)
[2020-09-08] MEDS ORDERED: SODIUM CHLORIDE 0.9% 50ML 50 ML ONE (19:48)
[2020-09-08] MEDS ORDERED: CEFTRIAXONE 1 GM VIAL IV SCH (21:00)
[2020-09-08] MEDS ORDERED: CEFTRIAXONE 1 GM in SODIUM CHLORIDE 0.9% 50ML 50 ML IV SCH (21:15)
[2020-09-08 21:32] LABS: ANION GAP 14.4 mmol/L (8-16); BLOOD UREA NITROGEN 6 mg/dL (7-26); BUN/CREATININE RATIO 8 (6-25); CALCIUM 7.8 mg/dL (8.4-10.2); CARBON DIOXIDE 21 mmol/L (22-29); CHLORIDE 107 mmol/L (98-107); CREATININE, SERUM 0.73 mg/dL (0.57-1.11); EST GLOMERULAR FILTRATION RATE > 60 ML/MIN (60-); GLUCOSE 88 mg/dL (74-118); POTASSIUM 3.4 mmol/L (3.5-5.1); SODIUM 139 mmol/L (136-145)
[2020-09-08 22:25] VITALS: BP 138/81
[2020-09-08 23:00] VITALS: BP 142/79
[2020-09-08] MEDS ORDERED: SODIUM CHLORIDE 0.9% 250ML 250 ML ONE (23:41)
[2020-09-09] VITALS (9 sets, daily range): BP systolic 105–142; BP diastolic 70–79
[2020-09-09 04:52] LABS: BASOPHILS % 0.2 % (0.0-1.0); HEMATOCRIT 36.9 % (34.2-44.1); HEMOGLOBIN 12.6 g/dL (12.0-16.0); LYMPHOCYTES # (AUTO) 0.7 (1.0-3.2); LYMPHOCYTES % 4.1 % (18.0-39.1); MEAN CORPUSCULAR HEMOGLOBIN 32.2 pg (28-32); MEAN CORPUSCULAR HGB CONC 34.1 g/dL (31-35); MEAN CORPUSCULAR VOLUME 94.4 fL (81-99); MONOCYTES # (AUTO) 0.3 (0.2-0.8); MONOCYTES % 1.6 % (4.4-11.3); NEUTROPHILS # (AUTO) 16.2 (2.1-6.9); NEUTROPHILS % 93.2 % (38.7-80.0); PLATELET COUNT 237 x10e3/uL (140-360); RED BLOOD COUNT 3.91 x10e6/uL (3.6-5.1)
[2020-09-09 05:13] LABS: ALANINE AMINOTRANSFERASE 19 IU/L (0-55); ALBUMIN 2.6 g/dL (3.5-5.0); ALKALINE PHOSPHATASE 72 IU/L (40-150); ANION GAP 13.9 mmol/L (8-16); BLOOD UREA NITROGEN 9 mg/dL (7-26); BUN/CREATININE RATIO 12 (6-25); CARBON DIOXIDE 20 mmol/L (22-29); CHLORIDE 107 mmol/L (98-107); CREATININE, SERUM 0.74 mg/dL (0.57-1.11); EST GLOMERULAR FILTRATION RATE > 60 ML/MIN (60-); GLUCOSE 82 mg/dL (74-118); SODIUM 138 mmol/L (136-145)
[2020-09-09 05:32] LABS: POTASSIUM 2.9 mmol/L (3.5-5.1)
[2020-09-09] MEDS: PIPERACILLIN/TAZOBACTAM 3.375 GM in SODIUM CHLORIDE 0.9% 50ML 50 ML IV SCH ×4 (05:33→23:27)
[2020-09-09] MEDS ORDERED: POTASSIUM CHLORIDE 20 MEQ TAB CR PO STA (06:29)
[2020-09-09] MEDS ORDERED: ONDANSETRON HCL INJ 2MG/ML 2ML 2 MG/ML VIAL IV PRN (06:30)
[2020-09-09] MEDS ORDERED: TRAMADOL HCL 50 MG TAB PO PRN (07:00)
[2020-09-09] MEDS ORDERED: ACETAMINOPHEN 325 MG TAB PO PRN (07:00)
[2020-09-09] MEDS ORDERED: DOCUSATE SODIUM 100 MG CAP PO PRN (07:00)
[2020-09-09] MEDS ORDERED: POTASSIUM CHLORIDE 20 MEQ TAB CR PO ONE (07:15)
[2020-09-09] MEDS: ENALAPRIL MALEATE 10 MG TAB PO SCH (08:51)
[2020-09-09] MEDS: BUPROPION HCL 150 MG TABCR PO SCH (09:00)
[2020-09-09] MEDS: LEVOTHYROXINE SODIUM 25 MCG TABLET PO SCH (11:00)
[2020-09-09] MEDS: ONDANSETRON HCL INJ 2MG/ML 2ML 2 MG/ML VIAL IV PRN ×2 (12:43→21:24)
[2020-09-09] MEDS: ZOLPIDEM TARTRATE 5 MG TAB PO PRN (21:39)
[2020-09-10] VITALS (8 sets, daily range): BP systolic 107–153; BP diastolic 69–96
[2020-09-10] MEDS: PIPERACILLIN/TAZOBACTAM 3.375 GM in SODIUM CHLORIDE 0.9% 50ML 50 ML IV SCH ×4 (05:29→23:10)
[2020-09-10] MEDS: LEVOTHYROXINE SODIUM 25 MCG TABLET PO SCH (05:29)
[2020-09-10] MEDS: BUPROPION HCL 150 MG TABCR PO SCH (09:00)
[2020-09-10] MEDS: ENALAPRIL MALEATE 10 MG TAB PO SCH (09:00)
[2020-09-10 09:28] LABS: BASOPHILS # (AUTO) 0.1 (0.0-0.1); BASOPHILS % 0.4 % (0.0-1.0); EOSINOPHILS # (AUTO) 0.1 (0.0-0.4); EOSINOPHILS % 0.6 % (0.0-6.0); HEMATOCRIT 36.3 % (34.2-44.1); HEMOGLOBIN 11.7 g/dL (12.0-16.0); LYMPHOCYTES # (AUTO) 1.5 (1.0-3.2); LYMPHOCYTES % 10.5 % (18.0-39.1); MEAN CORPUSCULAR HEMOGLOBIN 31.5 pg (28-32); MEAN CORPUSCULAR HGB CONC 32.2 g/dL (31-35); MONOCYTES # (AUTO) 0.6 (0.2-0.8); MONOCYTES % 4.2 % (4.4-11.3); NEUTROPHILS # (AUTO) 12.2 (2.1-6.9); NEUTROPHILS % 83.5 % (38.7-80.0); PLATELET COUNT 179 x10e3/uL (140-360); RED BLOOD COUNT 3.72 x10e6/uL (3.6-5.1); RED CELL DISTRIBUTION WIDTH 13.3 % (11.7-14.4)
[2020-09-10 09:33] LABS: MEAN CORPUSCULAR VOLUME 97.6 fL (81-99)
[2020-09-10 09:52] LABS: ANION GAP 11.8 mmol/L (8-16); POTASSIUM 3.8 mmol/L (3.5-5.1)
[2020-09-10] MEDS: ZOLPIDEM TARTRATE 5 MG TAB PO PRN (21:23)
[2020-09-11] VITALS (8 sets, daily range): BP systolic 134–166; BP diastolic 80–92
[2020-09-11] MEDS: PIPERACILLIN/TAZOBACTAM 3.375 GM in SODIUM CHLORIDE 0.9% 50ML 50 ML IV SCH ×3 (05:32→17:23)
[2020-09-11] MEDS: LEVOTHYROXINE SODIUM 25 MCG TABLET PO SCH (05:32)
[2020-09-11] MEDS: BUPROPION HCL 150 MG TABCR PO SCH (09:00)
[2020-09-11] MEDS: ENALAPRIL MALEATE 10 MG TAB PO SCH (09:00)
[2020-09-11] MEDS: ZOLPIDEM TARTRATE 5 MG TAB PO PRN (22:50)
[2020-09-12] VITALS (8 sets, daily range): BP systolic 149–170; BP diastolic 88–94
[2020-09-12] MEDS: PIPERACILLIN/TAZOBACTAM 3.375 GM in SODIUM CHLORIDE 0.9% 50ML 50 ML IV SCH ×4 (00:09→17:44)
[2020-09-12] MEDS: LEVOTHYROXINE SODIUM 25 MCG TABLET PO SCH (06:00)
[2020-09-12 08:54] LABS: BASOPHILS % 0.6 % (0.0-1.0); EOSINOPHILS # (AUTO) 0.1 (0.0-0.4); EOSINOPHILS % 1.2 % (0.0-6.0); HEMATOCRIT 34.4 % (34.2-44.1); HEMOGLOBIN 11.4 g/dL (12.0-16.0); LYMPHOCYTES # (AUTO) 1.3 (1.0-3.2); LYMPHOCYTES % 19.4 % (18.0-39.1); MEAN CORPUSCULAR HEMOGLOBIN 31.5 pg (28-32); MEAN CORPUSCULAR HGB CONC 33.1 g/dL (31-35); MONOCYTES # (AUTO) 0.5 (0.2-0.8); MONOCYTES % 7.5 % (4.4-11.3); NEUTROPHILS # (AUTO) 4.8 (2.1-6.9); NEUTROPHILS % 70.9 % (38.7-80.0); PLATELET COUNT 193 x10e3/uL (140-360); RED BLOOD COUNT 3.62 x10e6/uL (3.6-5.1); RED CELL DISTRIBUTION WIDTH 12.9 % (11.7-14.4)
[2020-09-12] MEDS: BUPROPION HCL 150 MG TABCR PO SCH (09:06)
[2020-09-12] MEDS: ENALAPRIL MALEATE 10 MG TAB PO SCH (09:06)
[2020-09-12 09:14] LABS: ANION GAP 13.2 mmol/L (8-16); BLOOD UREA NITROGEN 6 mg/dL (7-26); BUN/CREATININE RATIO 8 (6-25); CALCIUM 8.5 mg/dL (8.4-10.2); CARBON DIOXIDE 22 mmol/L (22-29); CHLORIDE 105 mmol/L (98-107); EST GLOMERULAR FILTRATION RATE > 60 ML/MIN (60-); GLUCOSE 113 mg/dL (74-118); POTASSIUM 3.2 mmol/L (3.5-5.1); SODIUM 137 mmol/L (136-145)
[2020-09-12] MEDS ORDERED: POTASSIUM CHLORIDE 20 MEQ TAB CR PO ONE (12:54)
[2020-09-12] MEDS: ZOLPIDEM TARTRATE 5 MG TAB PO PRN (23:20)
[2020-09-13] VITALS (8 sets, daily range): BP systolic 133–164; BP diastolic 80–102
[2020-09-13] MEDS: PIPERACILLIN/TAZOBACTAM 3.375 GM in SODIUM CHLORIDE 0.9% 50ML 50 ML IV SCH ×4 (06:00→12:04)
[2020-09-13] MEDS: LEVOTHYROXINE SODIUM 25 MCG TABLET PO SCH (06:13)
[2020-09-13] MEDS: ENALAPRIL MALEATE 10 MG TAB PO SCH (08:56)
[2020-09-13] MEDS: BUPROPION HCL 150 MG TABCR PO SCH (08:56)
[2020-09-13 09:29] LABS: BASOPHILS # (AUTO) 0.1 (0.0-0.1); BASOPHILS % 0.9 % (0.0-1.0); EOSINOPHILS # (AUTO) 0.1 (0.0-0.4); EOSINOPHILS % 1.7 % (0.0-6.0); HEMOGLOBIN 12.3 g/dL (12.0-16.0); LYMPHOCYTES # (AUTO) 1.8 (1.0-3.2); LYMPHOCYTES % 25.6 % (18.0-39.1); MEAN CORPUSCULAR HEMOGLOBIN 31.3 pg (28-32); MEAN CORPUSCULAR HGB CONC 32.4 g/dL (31-35); MEAN CORPUSCULAR VOLUME 96.7 fL (81-99); MONOCYTES # (AUTO) 0.6 (0.2-0.8); MONOCYTES % 9.1 % (4.4-11.3); NEUTROPHILS # (AUTO) 4.4 (2.1-6.9); NEUTROPHILS % 62.4 % (38.7-80.0); PLATELET COUNT 245 x10e3/uL (140-360); RED BLOOD COUNT 3.93 x10e6/uL (3.6-5.1); RED CELL DISTRIBUTION WIDTH 13.1 % (11.7-14.4)
[2020-09-13 09:50] LABS: ANION GAP 15.1 mmol/L (8-16); CALCIUM 9.4 mg/dL (8.4-10.2); CREATININE, SERUM 0.91 mg/dL (0.57-1.11); POTASSIUM 4.1 mmol/L (3.5-5.1)
[2020-09-13] MEDS ORDERED: CEFTRIAXONE 2 GM/DEXT 100 ML 2 GM/100 ML ML IV SCH (16:15)
[2020-09-13] MEDS: CEFTRIAXONE 1 GM in SODIUM CHLORIDE 0.9% 50ML 50 ML IV SCH (17:28)
[2020-09-13] MEDS: ZOLPIDEM TARTRATE 5 MG TAB PO PRN (23:02)
[2020-09-14] VITALS (7 sets, daily range): BP systolic 136–166; BP diastolic 73–106
[2020-09-14] MEDS: LEVOTHYROXINE SODIUM 25 MCG TABLET PO SCH (07:26)
[2020-09-14] MEDS: BUPROPION HCL 150 MG TABCR PO SCH (09:21)
[2020-09-14] MEDS: ENALAPRIL MALEATE 10 MG TAB PO SCH (09:21)
[2020-09-14] MEDS ORDERED: ONDANSETRON HCL 4 MG ORAL DISINTEGRATING TAB PO PRN (12:00)
[2020-09-14] MEDS: CEFTRIAXONE 1 GM in SODIUM CHLORIDE 0.9% 50ML 50 ML IV SCH (16:34)
[2020-09-14] MEDS: ZOLPIDEM TARTRATE 5 MG TAB PO PRN (23:16)
[2020-09-15] VITALS: BP 141/78
[2020-09-15 04:00] VITALS: BP 144/84
[2020-09-15] MEDS ORDERED: ZOFRAN4 MG PO (05:23)
[2020-09-15] MEDS ORDERED: KEFLEX125 MG/5 M PO (05:23)
[2020-09-15] MEDS: LEVOTHYROXINE SODIUM 25 MCG TABLET PO SCH (06:00)
[2020-09-15] MEDS ORDERED: CEFTRIAXONE 1 GM in SODIUM CHLORIDE 0.9% 50ML 50 ML IV SCH (08:00)
[2020-09-15 08:41] VITALS: BP 138/85
[2020-09-15] MEDS: ENALAPRIL MALEATE 10 MG TAB PO SCH (09:02)
[2020-09-15] MEDS: BUPROPION HCL 150 MG TABCR PO SCH (09:03)
[2020-09-15 09:11] VITALS: BP 138/85
== END 2020-09-15 09:58 | disposition home or self-care (01) | DRG 872 ==
LOC: ER 17:07 → ERHOLD 21:02 → MED/SURG2 22:21
PROVIDERS: ADMIT Internal Medicine; ATTEND Internal Medicine
DX: A41.9 Sepsis, unspecified organism (principal); E86.0 Dehydration; K52.9 Noninfective gastroenteritis and colitis, unspecified; N20.0 Calculus of kidney; K57.90 Diverticulosis of intestine, part unspecified, without perforation or abscess without bleeding; E03.9 Hypothyroidism, unspecified; M19.90 Unspecified osteoarthritis, unspecified site; Z20.822 Contact with and (suspected) exposure to COVID-19
CPT/HCPCS: 36415; 71045; 71260; 74177; 80048; 80053; 81001; 82550; 82553; 82948; 83605; 83735; 83880; 84132; 84484; 85025; 87040; 87071; 87186; 87205; 93005; 97139; 99285; J0696; J2405; J2543; J7030; J7050; Q9967; U0002